=== PATIENT | male | born 1940 | race Caucasian/White ===

== ENCOUNTER → 2016-05-05 | Outpatient (CLI) | payer OTHER, BC ==
[~2016-05-05] VITALS: Ht 25.4 cm; Wt 94.3 kg
[~2016-05-05] MED LIST: ASPI81TA28 PO; CPR500 PO; CRAN1CAP13 PO; CRAN1TAB6 PO; ERTA1INJ IV; FURO-85 PO; GEMF600T3 PO; LEVO25TA5 PO; LISI-787 PO; LOSA100T65 PO; LOSA50TA6 PO; METO25TA3 PO; MULT-845 PO; PANT40TA PO; PRD20 PO; PROM12.57 PO; PRT40 PO; SYN50 PO; TRML160 TOP; ZLF/100 PO; ZNTT/150 PO
[2016-05-05 15:42] VITALS: BP 122/69; PULSE 89; Ht 25.4 cm; Wt 94.3 kg
== END | disposition home or self-care (01) ==
LOC: C.NEUR 14:00
PROVIDERS: ATTEND Internal Medicine Pulmonary Disease
DX: G47.33 Obstructive sleep apnea (adult) (pediatric) (principal)

== ENCOUNTER 2016-05-15 15:22 | Inpatient (IN) | payer OTHER, BC ==
[~2016-05-15] VITALS: Ht 177.8 cm; Wt 88.2 kg
[~2016-05-15 15:22] MED LIST changes: -CPR500 PO; -CRAN1TAB6 PO; -ERTA1INJ IV; -FURO-85 PO; -LOSA50TA6 PO; -METO25TA3 PO; -PANT40TA PO; -PRD20 PO; -PROM12.57 PO; -PRT40 PO; -SYN50 PO; -TRML160 TOP
[2016-05-15 16:17] LABS: BASO % 0.4 %; BASO ABS # 0.03 K/uL (0-0.2); COMPLETE YES; EOS % 3.4 %; HEMATOCRIT 34.2 % (42-52); IG% 0.1 %; LYMPH % 15.3 %; LYMPH ABS # 1.23 K/uL (1.2-3.4); MEAN CELL VOLUME 85.9 fL (80-100); MEAN CORPUSCULAR HEMOGLOBIN 29.1 pg (25-34); MEAN CORPUSCULAR HGB CONC 33.9 g/dl (32-36); MEAN PLATELET VOLUME 9.4 fL (7.4-10.4); MONO % 9.3 %; NEUT % 71.5 %; PLATELET COUNT 289 K/uL (130-400); RED BLOOD COUNT 3.98 M/uL (4.7-6.1); WHITE BLOOD COUNT 8.05 K/uL (4.8-10.8)
--- NOTE | 2016-05-15 16:21 | DIAGNOSTIC IMAGING REPORT ---
CHEST ONE VIEW PORTABLE CLINICAL HISTORY: Generalized Weakness dyspnea COMPARISON STUDY: 03/21/2016 FINDINGS: Interval development of pulmonary edema versus respiratory distress. Bilateral parenchymal infiltrates are present seen diffusely throughout both hemithoraces. IMPRESSION: Interval development of pulmonary edema and/or adult respiratory distress Electronically signed by: José Miguel Melendez M.D. 05/15/2016 4:20 PM Dictated Date/Time: 05/15/2016 4:19 PM
--- NOTE | 2016-05-15 16:33 | DIAGNOSTIC IMAGING REPORT ---
HEAD CT NONCONTRAST CT DOSE: 823.94 mGycm HISTORY: Mental status change Generalized Weakness TECHNIQUE: Multiaxial CT images of the head were performed without the use of intravenous contrast. Comparison: 06/02/2014 Findings: The paranasal sinuses and mastoid air cells are clear. The calvarium and skull base are intact. The ventricles and sulci are within normal limits. There is no mass, hematoma, midline shift, or acute infarct. Impression: No acute intracranial abnormality. Electronically signed by: José Miguel Melendez M.D. 05/15/2016 4:31 PM Dictated Date/Time: 05/15/2016 4:28 PM
[2016-05-15 16:37] LABS: CALCIUM 8.7 mg/dl (8.5-10.1); MAGNESIUM 2.2 mg/dl (1.8-2.4); POTASSIUM 3.9 mmol/L (3.5-5.1)
[2016-05-15 16:38] LABS: BUN/CREATININE RATIO 17.6 (10-20); CREATININE 1.2 mg/dl (0.60-1.40)
[2016-05-15 16:55] LABS: PHOSPHORUS 3.5 mg/dl (2.5-4.9)
[2016-05-15 16:56] LABS: THYROID STIMULATING HORMONE 2.49 uIu/ml (0.300-4.500)
[2016-05-15] MEDS ORDERED: ASPIRIN 324 MG CHEW PO STA (17:07)
[2016-05-15 17:09] LABS: CKMB/CK RATIO 4.3 (0-3.0)
[2016-05-15] MEDS ORDERED: SYN50 PO (17:09)
--- NOTE | 2016-05-15 17:19 | EMERGENCY ROOM VISIT NOTE ---
History Report prepared by [place]: Nelsy Price Under the Supervision of: Dr. Leo Lopez M.D. First contact with patient: 15:48 Chief Complaint: TACHYCARDIA Stated Complaint: HEART BEATING FAST, HEADACHE Nursing Triage Summary: patient reports patient has had a headache for 4 days and is not eating History of Present Illness The patient is a 76 year old male who presents to the Emergency Room with complaints of a headache for the past month that has been worsening over the past 4 days. He reports pain that starts in the left side of his head and radiates into the left side of his jaw. He describes his pain as sharp and rates it as a 6/10 in severity. The patient also reports chest pain, chest heaviness, tachycardia, shortness of breath, nausea, and loss of appetite. He typically uses a CPAP machine at night, but was unable to use it last night because he was so short of breath. He has been taking Tylenol for his symptoms and states that it is only minimally helping. The patient denies abdominal pain , bloody stools, leg pain or swelling, fever, and vomiting. He has a history of bowel obstructions, but had a normal bowel movement this morning. He takes aspirin daily but denies any other blood thinners. His reports that he falls often, but his last fall was over 1 month ago. The patient's called his PCP and was advised to bring the patient to the ED for further evaluation. Source of History: patient, spouse/significant other Onset: 4 days ago Position: head Symptom Intensity: 6/10 Quality: sharp Timing: worsening Modifying Factors (Worsening): other (CPAP) Modifying Factors (Relieving): tylenol Associated Symptoms: + SOB, + chest pain, + nausea, No abdominal pain, No hematochezia, No melena, No vomiting Review of Systems See HPI for pertinent positives & negatives. A total of 10 systems reviewed and were otherwise negative. Past Medical & Surgical Medical Problems: (1) Chest pain at rest (2) Heart disease (3) HTN (hypertension) (4) Pneumonia (5) SBO (small bowel obstruction) (6) Seizure-like activity (7) Shortness of breath Family History FH: COPD (chronic obstructive pulmonary disease) Social History Smoking Status: Never Smoker Drug Use: none Marital Status: Housing Status: lives with significant other Occupation Status: retired Current/Historical Medications Scheduled Aspirin (Aspirin Ec), 81 MG PO QPM Cranberry-Vitamin C-Vitamin E (Cranberry Plus Vitamin C), 1 CAP PO QPM Gemfibrozil (Lopid), 600 MG PO QAM Levothyroxine Sodium (Synthroid), 50 MCG PO QAM Losartan Potassium (Cozaar), 100 MG PO DAILY Multiple Vitamins W/ Minerals (Centrum Silver Adult 50+), 1 TAB PO DAILY Ranitidine (Zantac), 150 MG PO BID Sertraline HCl (Sertraline HCl), 200 MG PO QAM Allergies Coded Allergies: No Known Allergies (Unverified , 05/15/16) Physical Exam Vital Signs Date Time Temp Pulse Resp B/P Pulse Ox O2 Delivery O2 Flow Rate FiO2 05/15/16 18:17 96 05/15/16 17:30 95 21 146/88 95 Room Air 05/15/16 15:34 37.0 97 22 142/79 95 Room Air Physical Exam GENERAL: Patient is elderly appearing and in no acute distress, generalized weakness. HEENT: No acute trauma, normocephalic atraumatic, mucous membranes moist, no nasal congestion, no scleral icterus. NECK: No stridor, no adenopathy, no meningismus, trachea is midline. LUNGS: No dyspnea. Clear to auscultation and equal bilaterally. No wheeze, no rhonchi. HEART: Regular rate and rhythm. No murmurs, rubs, gallops appreciated. ABDOMEN: Soft, nontender, bowel sounds positive, no masses appreciated, no peritonitis. BACK: No midline tenderness, no CVA tenderness EXTREMITIES: Normal motion all extremities, no cyanosis, no edema. NEUROLOGIC: Alert and oriented, no acute motor or sensory deficits, no focal weakness, cranial nerves grossly intact. SKIN: No rash, no jaundice, no diaphoresis. Medical Decision & Procedures ER Provider Diagnostic Interpretation: Radiology results and stated below per my review and radiologist interpretation: HEAD CT NONCONTRAST CT DOSE: 823.94 mGycm HISTORY: Mental status change Generalized Weakness TECHNIQUE: Multiaxial CT images of the head were performed without the use of intravenous contrast. Comparison: 06/02/2014 Findings: The paranasal sinuses and mastoid air cells are clear. The calvarium and skull base are intact. The ventricles and sulci are within normal limits. There is no mass, hematoma, midline shift, or acute infarct. Impression: No acute intracranial abnormality. Electronically signed by: José Miguel Melendez M.D. 05/15/2016 4:31 PM Dictated Date/Time: 05/15/2016 4:28 PM CHEST ONE VIEW PORTABLE CLINICAL HISTORY: Generalized Weakness dyspnea COMPARISON STUDY: 03/21/2016 FINDINGS: Interval development of pulmonary edema versus respiratory distress. Bilateral parenchymal infiltrates are present seen diffusely throughout both hemithoraces. IMPRESSION: Interval development of pulmonary edema and/or adult respiratory distress Electronically signed by: José Miguel Melendez M.D. 05/15/2016 4:20 PM Dictated Date/Time: 05/15/2016 4:19 PM Laboratory Results 05/15/16 15:51 Red Blood Count 3.98, Mean Corpuscular Volume 85.9, Mean Corpuscular Hemoglobin 29.1, Mean Corpuscular Hemoglobin Concent 33.9, Mean Platelet Volume 9.4, Neutrophils (%) (Auto) 71.5, Lymphocytes (%) (Auto) 15.3, Monocytes (%) (Auto) 9.3, Eosinophils (%) (Auto) 3.4, Basophils (%) (Auto) 0.4, Neutrophils # (Auto) 5.76, Lymphocytes # (Auto) 1.23, Monocytes # (Auto) 0.75, Eosinophils # (Auto) 0.27, Basophils # (Auto) 0.03 05/15/16 15:51 Test 05/15/16 15:51 05/15/16 17:45 White Blood Count 8.05 K/uL (4.8-10.8) Red Blood Count 3.98 M/uL (4.7-6.1) Hemoglobin 11.6 g/dL (14.0-18.0) Hematocrit 34.2 % (42-52) Mean Corpuscular Volume 85.9 fL (80-100) Mean Corpuscular Hemoglobin 29.1 pg (25-34) Mean Corpuscular Hemoglobin Concent 33.9 g/dl (32-36) Platelet Count 289 K/uL (130-400) Mean Platelet Volume 9.4 fL (7.4-10.4) Neutrophils (%) (Auto) 71.5 % Lymphocytes (%) (Auto) 15.3 % Monocytes (%) (Auto) 9.3 % Eosinophils (%) (Auto) 3.4 % Basophils (%) (Auto) 0.4 % Neutrophils # (Auto) 5.76 K/uL (1.4-6.5) Lymphocytes # (Auto) 1.23 K/uL (1.2-3.4) Monocytes # (Auto) 0.75 K/uL (0.11-0.59) Eosinophils # (Auto) 0.27 K/uL (0-0.5) Basophils # (Auto) 0.03 K/uL (0-0.2) RDW Standard Deviation 49.1 fL (36.4-46.3) RDW Coefficient of Variation 15.5 % (11.5-14.5) Immature Granulocyte % (Auto) 0.1 % Immature Granulocyte # (Auto) 0.01 K/uL (0.00-0.02) Erythrocyte Sedimentation Rate 61 mm/hr (0-14) Anion Gap 13.0 mmol/L (3-11) Est Creatinine Clear Calc Drug Dose 59.1 ml/min Estimated GFR () 67.2 Estimated GFR (Non- 58.0 BUN/Creatinine Ratio 17.6 (10-20) Calcium Level 8.7 mg/dl (8.5-10.1) Phosphorus Level 3.5 mg/dl (2.5-4.9) Magnesium Level 2.2 mg/dl (1.8-2.4) Total Bilirubin 0.5 mg/dl (0.2-1) Direct Bilirubin 0.2 mg/dl (0-0.2) Aspartate Amino Transf (AST/SGOT) 21 U/L (15-37) Alanine Aminotransferase (ALT/SGPT) 17 U/L (12-78) Alkaline Phosphatase 76 U/L (45-117) Total Creatine Kinase 30 U/L (39-308) Creatine Kinase MB 1.3 ng/ml (0.5-3.6) Creatine Kinase MB Ratio 4.3 (0-3.0) Troponin I 0.052 ng/ml (0-0.045) C-Reactive Protein 12.00 mg/dl (0-0.29) Pro-B-Type Natriuretic Peptide 2781 pg/ml (0-1800) Total Protein 7.1 gm/dl (6.4-8.2) Albumin 3.2 gm/dl (3.4-5.0) Thyroid Stimulating Hormone (TSH) 2.490 uIu/ml (0.300-4.500) Urine Color YELLOW Urine Appearance CLEAR (CLEAR) Urine pH 5.5 (4.5-7.5) Urine Specific [place] 1.022 (1.000-1.030) Urine Protein NEG (NEG) Urine Glucose (UA) NEG (NEG) Urine Ketones NEG (NEG) Urine Occult Blood NEG (NEG) Urine Nitrite NEG (NEG) Urine Bilirubin NEG (NEG) Urine Urobilinogen NEG (NEG) Urine Leukocyte Esterase TRACE (NEG) Urine WBC (Auto) 1-5 /hpf (0-5) Urine RBC (Auto) 0-4 /hpf (0-4) Urine Hyaline Casts (Auto) 1-5 /lpf (0-5) Urine Epithelial Cells (Auto) 10-20 /lpf (0-5) Urine Bacteria (Auto) NEG (NEG) Laboratory results as reviewed by me. Medications Administered Medications (Trade) Dose Ordered Sig/Raudel Route Start Time Stop Time Status Last Admin Dose Admin Aspirin (Aspirin Chew) 324 mg NOW STAT PO 05/15/16 17:07 05/15/16 17:08 DC 05/15/16 17:49 324 MG Prednisone (PredniSONE TAB) 40 mg 1908 ONCE PO 05/15/16 19:08 05/15/16 20:11 DC 05/15/16 23:26 40 MG ECG Indication: SOB/dyspnea Rate (beats per minute): 100 Rhythm: normal sinus Findings: T-wave inversion (Anterior), no acute ischemic change, other (no STEMI) ED Course 1548: The patient was evaluated in room A2. A complete history and physical exam was performed. 1655: I spoke with Dr. Spencer. We discussed the patients results and treatment plan. The patient will be evaluated by the [facility] for further management. 1657: I reassessed the patient at this time. He was feeling short of breath lying flat, so I sat him up and he is feeling better. I discussed the results and treatment plan with the patient. I answered all pertaining questions that he had. He expressed understanding and verbalized agreement. 1707: Aspirin 324 mg PO Medical Decision Differential: Sepsis, Infectious (UTI/Pneumonia/Meningitis/etc), Metabolic/ Electrolyte Abnormality, Cardiac, Hepatic, Endocrine, Toxicologic, Neurologic, amongst other pathologies entertained. 76 yr old male arrives for evaluation of worsening left temporal headache over the last 4 days, though ongoing for over a month. Notes substernal chest pressure last evening along with increased SHOB, especially with exertion and laying flat. CXR with evidence of pulm edema. No stemi on EKG though there are T wave inversions (no current chest pain). Trop mildly bumped though appears similar to previous visit 2 months ago. Given ASA for chest pain reported last evening. He furthermore has left temporal headache which has been increasing last few days. No TTP over left temp. Does have elevated CRP/ ESR which given age, headache, and location of headache may point to this being temporal arteritis. CXR with pulm edema though no clear evidnence of lobar infiltrate. Without wbc elevation, nor fever, will hold on abx at this time, though this could be esr/crp elevation cause as well. He will be brought in to medical team. As not acutely hypoxic while sitting up will defer diuretic choice to hospitalist. Without clear findings of infection will hold off on abx at this time. Consults Time Called: 1650 Consulting Physician: Dr. Spencer Returned Call: [address] Spencer. We discussed the patients results and treatment plan. The patient will be evaluated by the [facility] for further management. Impression Primary Impression: Pulmonary edema Additional Impressions: Substernal chest pain Elevated troponin Temporal headache Scribe Attestation The scribe's documentation has been prepared under my direction and personally reviewed by me in its entirety. I confirm that the note above accurately reflects all work, treatment, procedures, and medical decision making performed by me. Departure Information Dispostion Being Evaluated By Hospitalist Referrals Miley Potts M.D. (PCP) Patient Instructions My [facility] Problem Qualifiers Primary Impression: Pulmonary edema Chronicity: acute Qualified Codes: J81.0 - Acute pulmonary edema
[2016-05-15 18:01] LABS: URINE APPEARANCE CLEAR (CLEAR); URINE BILIRUBIN NEG (NEG); URINE COLOR YELLOW; URINE NITRITE NEG (NEG); URINE PH 5.5 (4.5-7.5); URINE SPECIFIC GRAVITY 1.022 (1.000-1.030); UROBILINOGEN NEG (NEG); ZZUR CULT IF INDIC CLEAN CATCH NO
--- NOTE | 2016-05-15 18:11 | History and Physical ---
History & Physical Date & Time of Service: May 15, 2016 at 18:09 Chief Complaint: Heart Beating Fast, Headache Primary Care Physician: Miley Potts M.D. History of Present Illness 76M with a PMHx of Alzheimer's, Seizure disorder (petit mal), h/o TIA presents with a 4 days history of SOB, sharp chest pain and left sided headache. Patient is present with his who is the chief historian. SOB & Chest Pain - Pt has been getting episodes of SOB x 4 days intermittently. Wasn't able to wear his CPAP machine because of his SOB. Also feels he has palpitations and chest pain. His episodes usually occur with the sharp chest pain. Pt and cannot think of any triggers - the episodes usually occur at rest. Pt does get SOB when he is doing activities. The chest pain is described as sharp and is made worse on inhalation. Pt denies a feeling of an elephant on his chest. Pt was seen in late February 2016 for LLL pneumonia and discharged in March while the states has completely resolved. Left Sided Headache - Worse in the past 4 days. Starts on the left parietal area and radiates towards the left side of his jaw. The pain is mostly on the left side but recently he has started having similar pain on the right side of his head - the pain starts in the right temporal area and radiates to the right side of the jaw. pt denies having any blurry vision. While examined pt states that his headache went away after receiving 325mg Aspirin. ROS: Denies fevers, denies any significant cardiac history, denies tick bites, frequent falls. PMHx: Pneumonia approx two months ago, Allergies: NKDA Meds: see below + Tylenol for headache which didn't help. SHx: Never smoker, lives in [place] with . PCP: Dr. Miley Chu. Past Medical/Surgical History Medical Problems: (1) Heart disease Status: Chronic (2) HTN (hypertension) Status: Chronic (3) SBO (small bowel obstruction) Status: Resolved Family History FH: COPD (chronic obstructive pulmonary disease) Social History Smoking Status: Never Smoker Drug Use: none Marital Status: Housing status: lives with family Occupational Status: retired Multi-Drug Resistant Organisms History of MDRO: No Allergies Coded Allergies: No Known Allergies (Unverified , 05/15/16) Home Medications Scheduled Aspirin (Aspirin Ec), 81 MG PO QPM Cranberry-Vitamin C-Vitamin E (Cranberry Plus Vitamin C), 1 CAP PO QPM Gemfibrozil (Lopid), 600 MG PO QAM Levothyroxine Sodium (Synthroid), 50 MCG PO QAM Losartan Potassium (Cozaar), 100 MG PO DAILY Multiple Vitamins W/ Minerals (Centrum Silver Adult 50+), 1 TAB PO DAILY Ranitidine (Zantac), 150 MG PO BID Sertraline HCl (Sertraline HCl), 200 MG PO QAM Review of Systems Constitutional: No chills, No fever, No weight loss Eyes: + problem reported ( reports that x 3 days the patients left eye doesn't track properly) Respiratory: + shortness of breath, No cough, No sputum Physical Exam Vital Signs Date Time Temp Pulse Resp B/P Pulse Ox O2 Delivery O2 Flow Rate FiO2 05/15/16 17:30 95 21 146/88 95 Room Air 05/15/16 15:34 37.0 97 22 142/79 95 Room Air General Appearance: WD/WN, no apparent distress, + obese Head: + pertinent finding (tenderness over the left temporal artery) Eyes: PERRL, EOMI Respiratory/Chest: chest non-tender, no respiratory distress, no accessory muscle use, + pertinent finding (Crackles in the lower lobes of the lungs bilaterally. ) Cardiovascular: regular rate, rhythm, no edema, no gallop, no JVD, no murmur, normal peripheral pulses Abdomen/GI: normal bowel sounds, non tender, soft, no organomegaly, no pulsatile mass Extremities/Musculoskelatal: normal inspection, no calf tenderness, normal capillary refill, + pertinent finding (No signs of fluid overload in the LE, no edema, well healing lesions on the anterior toes bilaterally. ) Neurologic/Psych: alert, normal mood/affect, normal reflexes, + pertinent finding (Patient cannot remmeber the name of the hospital, but does remember his birthday, address, current president and names of his children. ) Skin: + pertinent finding Diagnostics Laboratory Results Results Past 24 Hours Test 05/15/16 15:51 05/15/16 17:45 Range/Units White Blood Count 8.05 4.8-10.8 K/uL Red Blood Count 3.98 4.7-6.1 M/uL Hemoglobin 11.6 14.0-18.0 g/dL Hematocrit 34.2 42-52 % Mean Corpuscular Volume 85.9 80-100 fL Mean Corpuscular Hemoglobin 29.1 25-34 pg Mean Corpuscular Hemoglobin Concent 33.9 32-36 g/dl Platelet Count 289 130-400 K/uL Mean Platelet Volume 9.4 7.4-10.4 fL Neutrophils (%) (Auto) 71.5 % Lymphocytes (%) (Auto) 15.3 % Monocytes (%) (Auto) 9.3 % Eosinophils (%) (Auto) 3.4 % Basophils (%) (Auto) 0.4 % Neutrophils # (Auto) 5.76 1.4-6.5 K/uL Lymphocytes # (Auto) 1.23 1.2-3.4 K/uL Monocytes # (Auto) 0.75 0.11-0.59 K/uL Eosinophils # (Auto) 0.27 0-0.5 K/uL Basophils # (Auto) 0.03 0-0.2 K/uL RDW Standard Deviation 49.1 36.4-46.3 fL RDW Coefficient of Variation 15.5 11.5-14.5 % Immature Granulocyte % (Auto) 0.1 % Immature Granulocyte # (Auto) 0.01 0.00-0.02 K/uL Erythrocyte Sedimentation Rate 61 0-14 mm/hr Sodium Level 142 136-145 mmol/L Potassium Level 3.9 3.5-5.1 mmol/L Chloride Level 108 98-107 mmol/L Carbon Dioxide Level 21 21-32 mmol/L Anion Gap 13.0 3-11 mmol/L Blood Urea Nitrogen 21 7-18 mg/dl Creatinine 1.20 0.60-1.40 mg/dl Est Creatinine Clear Calc Drug Dose 59.1 ml/min Estimated GFR () 67.2 Estimated GFR (Non- 58.0 BUN/Creatinine Ratio 17.6 10-20 Random Glucose 130 70-99 mg/dl Calcium Level 8.7 8.5-10.1 mg/dl Phosphorus Level 3.5 2.5-4.9 mg/dl Magnesium Level 2.2 1.8-2.4 mg/dl Total Bilirubin 0.5 0.2-1 mg/dl Direct Bilirubin 0.2 0-0.2 mg/dl Aspartate Amino Transf (AST/SGOT) 21 15-37 U/L Alanine Aminotransferase (ALT/SGPT) 17 12-78 U/L Alkaline Phosphatase 76 45-117 U/L Total Creatine Kinase 30 39-308 U/L Creatine Kinase MB 1.3 0.5-3.6 ng/ml Creatine Kinase MB Ratio 4.3 0-3.0 Troponin I 0.052 0-0.045 ng/ml C-Reactive Protein 12.00 0-0.29 mg/dl Pro-B-Type Natriuretic Peptide 2781 0-1800 pg/ml Total Protein 7.1 6.4-8.2 gm/dl Albumin 3.2 3.4-5.0 gm/dl Thyroid Stimulating Hormone (TSH) 2.490 0.300-4.500 uIu/ml Diagnostic Radiology CHEST ONE VIEW PORTABLE CLINICAL HISTORY: Generalized Weakness dyspnea COMPARISON STUDY: 03/21/2016 FINDINGS: Interval development of pulmonary edema versus respiratory distress. Bilateral parenchymal infiltrates are present seen diffusely throughout both hemithoraces. IMPRESSION: Interval development of pulmonary edema and/or adult respiratory distress HEAD CT NONCONTRAST CT DOSE: 823.94 mGycm HISTORY: Mental status change Generalized Weakness TECHNIQUE: Multiaxial CT images of the head were performed without the use of intravenous contrast. Comparison: 06/02/2014 Findings: The paranasal sinuses and mastoid air cells are clear. The calvarium and skull base are intact. The ventricles and sulci are within normal limits. There is no mass, hematoma, midline shift, or acute infarct. Impression: No acute intracranial abnormality. EKG Sinus rhythm with occasional Premature ventricular complexes Anterior infarct (cited on or before 21-SEP-1997) Abnormal ECG When compared with ECG of 21-MAR-2016 00:50, Premature ventricular complexes are now Present Nonspecific T wave abnormality now evident in Inferior leads Nonspecific T wave abnormality, worse in Lateral leads Impression Assessment and Plan 76M with a PMHx of Alzheimer's Disease, Seizures, h/o TIA and HTN presents with a 4 days history of SOB, pleuritic chest pain and Left Sided Headache. X-ray was indicative of pleural effusions. EKG showed sinus rhythm with possible prior infarct. Troponins were slightly elevated. SOB with pleural effusions and pleuritic chest pain. Patient denies any cardiac history but EKG showed possible previous infarct. Trop x 1 was 0.05, will trend. Patient is stable and denies any symptoms are present. X-ray showed pleural effusions, pt has many risk factors for CAD. - f/u Echocardiogram - Follow Troponins, CK, CKMB. - c/w Aspirin 81mg daily. Left Sided Headache r/o Temporal Arteritis Elevated ESR, tender temporal artery. Consult placed to Gen Surgery for Temporal Artery Biopsy placed. start Prednisone 40mg daily. Nose Bleed x 6 days Unknown cause, may be related to arteritis, platelets normal. Will order PT and PTT. HTN - 140/80s - c/w MINH inhibitor. - Continue to monitor Seizures - Gets partial seizures when overstimulated, was on Lamictal, it was DC'd because it didn't work, not on maintenance medications. - Consider Trial of Ethosuximide on discharge. GERD - switch from Ranitidine home med to Pantoprazole 40mg dialy. Hypothyroid - c/w Levothyroxine PO dialy. Mood - c/w Sertraline PO daily DVT Proph Lovenox 40meq SQ Dispo: Tele, Heart Healthy Diet, FULL CODE. Resident Physician Supervision Note: I interviewed and examined the patient. Discussed with Dr. Phillip and agree with findings and plan as documented in the note. Any exceptions or clarifications are listed here: None Documented By: Lamberto Spencer SOB - notes that since pneumonia then flu he's just not really been back to baseline. headache - L sided, throbbing. notes he's sometimes having trouble tracking w L eye vitals noted, basilar rales, tenderness L temporal area, also very tender L suboccipitals but this causes a separate pain from what he's feeling in temporal area CXR noted, labs reviewed a/p acute on chronic CHF - appearing mixed based on last echo - although this was from 2004 - had EF 35%, but LVH as well. 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 probably physiologic stress from respiratory illnesses (+/- dietary indiscretions) led to current CHF picture. diurese as above, repeat echo elevated troponin -almost certainly demand ischemia from above - no anginal type sx. trend enzymes, await echo, follow clinically L sided headache -ESR not markedly elevated, but also not normal. suboccipitals tender, but pressure there does not alter his headache on temporal area. combined with visual disturbances on L eye as well - obligated to eval as temporal arteritis - start prednisone, get temporal artery bx. doubt this ties together with pulmonary edema but if edema doesn't improve w lasix, echo shows surprising results, or anything else new occurs (such as with his nosebleeds) then may need to consider rheumatology eval for ?vasculitic process - although this seems doubtful. d/w pt and directly - they agree w above approach and were appreciative of "not throwing the kitchen sink at him" when he appears stable and approach can be stepwise instead. otherwise as above Resident Involvement: Resident Care Provided Care Provided: Adult Hospital Medicine
[2016-05-15 18:12] LABS: MANUAL MICROSCOPIC REQUIRED? NO; REVIEW REQ? NO
[2016-05-15] MEDS ORDERED: ONDANSETRON INJ 2 MG/ML 2 ML VIAL IV PRN (19:15)
[2016-05-15] MEDS ORDERED: POLYETHYLENE (MIRALAX) 17 GM PACK PO PRN (19:15)
[2016-05-15] MEDS ORDERED: NITROGLYCERIN 0.4 MG SL PER TAB CHARGE SL PRN (19:15)
[2016-05-15] MEDS ORDERED: MAGNESIUM HYDROXIDE SUSP 30 ML UDC PO PRN (19:15)
[2016-05-15] MEDS ORDERED: ACETAMINOPHEN 325 MG TAB PO PRN (19:15)
[2016-05-15 22:18] VITALS: BP 148/93; PULSE 93; O2SAT 92
[2016-05-15] MEDS ORDERED: FUROSEMIDE INJ 40 MG in SYRINGE 0 ML IV ONE (23:00)
[2016-05-15 23:04] VITALS: BP 148/93; PULSE 93; TEMP 37; Ht 177.8 cm; Wt 88.2 kg
[2016-05-15] MEDS ORDERED: NITROGLYCERIN OINT 2% 1GM PACKET ONE (23:21)
[2016-05-15] MEDS: NITROGLYCERIN OINT 2% 1GM PACKET EXT SCH (23:26)
[2016-05-16] VITALS (7 sets, daily range): BP systolic 122–154; BP diastolic 67–90; PULSE 93–103; TEMP 36.7–37.1; O2SAT 91–96
[2016-05-16] MEDS: NITROGLYCERIN OINT 2% 1GM PACKET EXT SCH ×4 (03:45→20:28)
[2016-05-16 06:25] LABS: HEMATOCRIT 37.5 % (42-52); MEAN CORPUSCULAR HEMOGLOBIN 29.7 pg (25-34); MEAN CORPUSCULAR HGB CONC 34.1 g/dl (32-36); MEAN PLATELET VOLUME 9.6 fL (7.4-10.4); PLATELET COUNT 301 K/uL (130-400); RED BLOOD COUNT 4.31 M/uL (4.7-6.1)
[2016-05-16 06:35] LABS: INR 1.1 (0.9-1.1); PARTIAL THROMBOPLASTIN RATIO 1.2
[2016-05-16 06:50] LABS: BUN/CREATININE RATIO 19.2 (10-20); CALCIUM 9.3 mg/dl (8.5-10.1); CREATININE 1.2 mg/dl (0.60-1.40); POTASSIUM 4.2 mmol/L (3.5-5.1)
--- NOTE | 2016-05-16 06:50 | Surgery Progress Note ---
Surgery Progress Note Date of Service May 16, 2016. Objective Vital Signs: Date Time Temp Pulse Resp B/P Pulse Ox O2 Delivery O2 Flow Rate FiO2 05/16/16 05:09 99 05/16/16 04:57 36.8 100 22 154/90 92 Room Air 05/16/16 04:30 Room Air 05/16/16 02:02 104 05/15/16 23:04 37.0 93 19 148/93 Room Air 05/15/16 22:18 93 05/15/16 22:18 93 148/93 92 Room Air 05/15/16 20:56 95 148/93 95 05/15/16 19:23 100 19 149/92 96 Room Air 05/15/16 18:17 96 05/15/16 17:30 95 21 146/88 95 Room Air 05/15/16 15:34 37.0 97 22 142/79 95 Room Air Laboratory Results: Results Past 24 Hours Test 05/15/16 15:51 05/15/16 17:45 05/16/16 01:28 05/16/16 06:20 Range/Units White Blood Count 8.05 7.40 4.8-10.8 K/uL Red Blood Count 3.98 4.31 4.7-6.1 M/uL Hemoglobin 11.6 12.8 14.0-18.0 g/dL Hematocrit 34.2 37.5 42-52 % Mean Corpuscular Volume 85.9 87.0 80-100 fL Mean Corpuscular Hemoglobin 29.1 29.7 25-34 pg Mean Corpuscular Hemoglobin Concent 33.9 34.1 32-36 g/dl Platelet Count 289 301 130-400 K/uL Mean Platelet Volume 9.4 9.6 7.4-10.4 fL Neutrophils (%) (Auto) 71.5 % Lymphocytes (%) (Auto) 15.3 % Monocytes (%) (Auto) 9.3 % Eosinophils (%) (Auto) 3.4 % Basophils (%) (Auto) 0.4 % Neutrophils # (Auto) 5.76 1.4-6.5 K/uL Lymphocytes # (Auto) 1.23 1.2-3.4 K/uL Monocytes # (Auto) 0.75 0.11-0.59 K/uL Eosinophils # (Auto) 0.27 0-0.5 K/uL Basophils # (Auto) 0.03 0-0.2 K/uL RDW Standard Deviation 49.1 49.2 36.4-46.3 fL RDW Coefficient of Variation 15.5 15.3 11.5-14.5 % Immature Granulocyte % (Auto) 0.1 % Immature Granulocyte # (Auto) 0.01 0.00-0.02 K/uL Erythrocyte Sedimentation Rate 61 0-14 mm/hr Sodium Level 142 136-145 mmol/L Potassium Level 3.9 3.5-5.1 mmol/L Chloride Level 108 98-107 mmol/L Carbon Dioxide Level 21 21-32 mmol/L Anion Gap 13.0 3-11 mmol/L Blood Urea Nitrogen 21 7-18 mg/dl Creatinine 1.20 0.60-1.40 mg/dl Est Creatinine Clear Calc Drug Dose 59.1 ml/min Estimated GFR () 67.2 Estimated GFR (Non- 58.0 BUN/Creatinine Ratio 17.6 10-20 Random Glucose 130 70-99 mg/dl Calcium Level 8.7 8.5-10.1 mg/dl Phosphorus Level 3.5 2.5-4.9 mg/dl Magnesium Level 2.2 1.8-2.4 mg/dl Total Bilirubin 0.5 0.2-1 mg/dl Direct Bilirubin 0.2 0-0.2 mg/dl Aspartate Amino Transf (AST/SGOT) 21 15-37 U/L Alanine Aminotransferase (ALT/SGPT) 17 12-78 U/L Alkaline Phosphatase 76 45-117 U/L Total Creatine Kinase 30 28 39-308 U/L Creatine Kinase MB 1.3 1.4 0.5-3.6 ng/ml Creatine Kinase MB Ratio 4.3 5.0 0-3.0 Troponin I 0.052 0.056 0-0.045 ng/ml C-Reactive Protein 12.00 0-0.29 mg/dl Pro-B-Type Natriuretic Peptide 2781 0-1800 pg/ml Total Protein 7.1 6.4-8.2 gm/dl Albumin 3.2 3.4-5.0 gm/dl Thyroid Stimulating Hormone (TSH) 2.490 0.300-4.500 uIu/ml Urine Color YELLOW Urine Appearance CLEAR CLEAR Urine pH 5.5 4.5-7.5 Urine Specific [place] 1.022 1.000-1.030 Urine Protein NEG NEG Urine Glucose (UA) NEG NEG Urine Ketones NEG NEG Urine Occult Blood NEG NEG Urine Nitrite NEG NEG Urine Bilirubin NEG NEG Urine Urobilinogen NEG NEG Urine Leukocyte Esterase TRACE NEG Urine WBC (Auto) 1-5 0-5 /hpf Urine RBC (Auto) 0-4 0-4 /hpf Urine Hyaline Casts (Auto) 1-5 0-5 /lpf Urine Epithelial Cells (Auto) 10-20 0-5 /lpf Urine Bacteria (Auto) NEG NEG Prothrombin Time 12.0 9.0-12.0 SECONDS Prothromb Time International Ratio 1.1 0.9-1.1 Activated Partial Thromboplast Time 32.2 21.0-31.0 SECONDS Partial Thromboplastin Ratio 1.2 Assessment & Plan 05/16/16- tentatively scheduled for Lt temp art bx for Wed ( tomorrow) will discuss later with pt and
[2016-05-16] MEDS ORDERED: ASPIRIN 81 MG ECTAB PO SCH (09:00)
[2016-05-16] MEDS: SERTRALINE HCL 100 MG TAB PO SCH (09:01)
[2016-05-16] MEDS: ENOXAPARIN 40 MG/0.4 ML SYR SC SCH (09:01)
[2016-05-16] MEDS: LOSARTAN POTASSIUM 50 MG TAB PO SCH (09:01)
[2016-05-16] MEDS: LEVOTHYROXINE 50 MCG TAB PO SCH (09:01)
[2016-05-16] MEDS: ASPIRIN 81 MG ECTAB PO SCH (09:02)
[2016-05-16] MEDS: PANTOprazole SOD 40 MG TAB PO SCH (09:02)
[2016-05-16 10:22] LABS: CKMB/CK RATIO 5.2 (0-3.0)
--- NOTE | 2016-05-16 12:28 | Clinical Documentation Query ---
QUERY 1 OF [address] COPELAND, ECHO is currently pending. In your clinical opinion is this patient being managed for: ( x ) Acute on chronic combined systolic and diastolic CHF ( ) Acute on chronic combined systolic CHF ( ) Acute on chronic combined diastolic CHF ( ) Other explanation of clinical findings (Please Explain) ( ) Unable to determine (Please Define) ( ) Need to Discuss ( ) Not Agree The medical record reflects the following clinical findings, treatment, and risk factors. Clinical Indicators:76 yo male presenting with headache. CXR showed Interval development of pulmonary edema and/or adult respiratory distress. Lungs with bilateral basilar crackles, BNP 2781. H/P indicates acute on chronic CHF --appearing mixed. Treatment: tele, IV lasix, pending ECHO, serial trops, I/O, daily wts Risk Factors: age, heart disease, HTN QUERY 2 OF 2 In your clinical opinion is this patient being managed for: ( x ) Chronic kidney disease, stage 3 ( ) Other explanation of clinical findings (Please Explain) ( ) Unable to determine (Please Define) ( ) Need to Discuss ( ) Not Agree The medical record reflects the following clinical findings, treatment, and risk factors. Clinical Indicators: Review of historical GFR revealed range of 45.3-58.4 Treatment: monitor PRP's Risk Factors: age, HTN, heart disease Please clarify and document your clinical opinion in the progress notes and discharge summary. Terms such as "probable", "suspected", "likely", "questionable", "possible", or "still to be ruled out" are acceptable. IF IN AGREEMENT, YOU MUST DOCUMENT ABOVE DIAGNOSTIC STATEMENT IN DAILY PROGRESS NOTES AND DISCHARGE SUMMARY. This document is not part of the patient's record. Thank You, Carol Radford, RN [phone]
--- NOTE | 2016-05-16 14:35 | Progress Note ---
Subjective Date of Service: May 16, 2016. Subjective Pt evaluation today including: conversation w/ patient, conversation w/ family , physical exam, chart review, lab review, review of studies, conversation w/ service delivery consultant, review of inpatient medication list Voiding: no voiding problems Reported no more chest pain, breathing okay, no more headache Problem List Medical Problems: (1) Abdominal pain Status: Acute (2) Anemia Status: Acute (3) Elevated troponin Status: Acute (4) Fever Status: Acute (5) Pulmonary edema Status: Acute (6) Seizure Status: Acute (7) Sepsis Status: Acute (8) Substernal chest pain Status: Acute (9) Temporal headache Status: Acute Review of Systems Constitutional: + fatigue, + weakness, No chills, No fever, No problem reported , No sweats, No weight loss Eyes: No diplopia, No discharge, No eye pain, No redness, No worsening of vision ENT: No dental problems, No hearing loss, No nasal symptoms, No sore throat, No tinnitus, No trouble swallowing, No unusual epistaxis Respiratory: No cough, No dyspnea at rest, No dyspnea on exertion, No hemoptysis, No shortness of breath, No sputum, No wheezing Cardiac: No PND, No chest pain, No claudication, No edema, No orthopnea, No palpitations Abdomen: No constipation, No diarrhea, No nausea, No pain, No vomiting Musculoskeletal: No calf pain, No joint pain, No muscle pain, No swelling Male : No dysuria, No hematuria, No incontinence, No nocturia more than once/ night, No slowing stream, No urinary frequency Neurologic: + memory loss, No balance problems, No numbness/tingling, No paralysis, No vertigo, No weakness Psychiatric: No anhedonism, No anxiety, No depression symptoms, No insomnia, No substance abuse Heme: No abnormal bleeding/bruising, No clotting problems, No night sweats, No swollen lymph nodes Endo: No excessive thirst, No excessive urination, No fatigue Skin: No bleeding, No color change, No itch, No new/changing skin lesions, No rash Objective Vital Signs Date Time Temp Pulse Resp B/P Pulse Ox O2 Delivery O2 Flow Rate FiO2 05/16/16 13:15 36.9 96 19 127/78 93 Room Air 05/16/16 12:25 Room Air 05/16/16 11:44 36.7 103 18 122/84 91 Room Air 05/16/16 08:30 Room Air 05/16/16 08:28 36.7 94 18 152/90 95 Room Air 05/16/16 07:37 102 05/16/16 05:09 99 05/16/16 04:57 36.8 100 22 154/90 92 Room Air 05/16/16 04:30 Room Air 05/16/16 02:02 104 05/15/16 23:04 37.0 93 19 148/93 Room Air 05/15/16 22:18 93 05/15/16 22:18 93 148/93 92 Room Air 05/15/16 20:56 95 148/93 95 05/15/16 19:23 100 19 149/92 96 Room Air 05/15/16 18:17 96 05/15/16 17:30 95 21 146/88 95 Room Air 05/15/16 15:34 37.0 97 22 142/79 95 Room Air Physical Exam General Appearance: WD/WN, no apparent distress, + obese, + pertinent finding ( confuse pleasant) Eyes: normal inspection, PERRL, EOMI, sclerae normal, + pertinent finding ( bilateral eye movement normally, left caodaism area has no obvious tender, temporal artery area has no pain) ENT: normal ENT inspection, hearing grossly normal, pharynx normal Neck: supple, no adenopathy, thyroid normal, no JVD, no carotid bruits, trachea midline Respiratory/Chest: chest non-tender, normal breath sounds, no respiratory distress, no accessory muscle use, + decreased breath sounds, + wheezing ( occasional) Cardiovascular: regular rate, rhythm, no gallop, no JVD, no murmur, + pertinent finding (1+ edema) Abdomen: normal bowel sounds, non tender, soft, no organomegaly, no pulsatile mass Extremities: normal range of motion, non-tender, normal inspection, no pedal edema, no calf tenderness, normal capillary refill, pelvis stable Neurologic/Psychiatric: blood bank specialist II-XII nml as tested, no motor/sensory deficits, alert, normal mood/affect, oriented x 3 Skin: normal color, warm/dry, no rash Lymphatic: no adenopathy Laboratory Results Last 24 Hours Test 05/15/16 15:51 05/15/16 17:45 05/16/16 01:05/16/16 06:20 White Blood Count 8.05 K/uL 7.40 K/uL Red Blood Count 3.98 M/uL 4.31 M/uL Hemoglobin 11.6 g/dL 12.8 g/dL Hematocrit 34.2 % 37.5 % Mean Corpuscular Volume 85.9 fL 87.0 fL Mean Corpuscular Hemoglobin 29.1 pg 29.7 pg Mean Corpuscular Hemoglobin Concent 33.9 g/dl 34.1 g/dl Platelet Count 289 K/uL 301 K/uL Mean Platelet Volume 9.4 fL 9.6 fL Neutrophils (%) (Auto) 71.5 % Lymphocytes (%) (Auto) 15.3 % Monocytes (%) (Auto) 9.3 % Eosinophils (%) (Auto) 3.4 % Basophils (%) (Auto) 0.4 % Neutrophils # (Auto) 5.76 K/uL Lymphocytes # (Auto) 1.23 K/uL Monocytes # (Auto) 0.75 K/uL Eosinophils # (Auto) 0.27 K/uL Basophils # (Auto) 0.03 K/uL RDW Standard Deviation 49.1 fL 49.2 fL RDW Coefficient of Variation 15.5 % 15.3 % Immature Granulocyte % (Auto) 0.1 % Immature Granulocyte # (Auto) 0.01 K/uL Erythrocyte Sedimentation Rate 61 mm/hr Sodium Level 142 mmol/L 140 mmol/L Potassium Level 3.9 mmol/L 4.2 mmol/L Chloride Level 108 mmol/L 106 mmol/L Carbon Dioxide Level 21 mmol/L 22 mmol/L Anion Gap 13.0 mmol/L 12.0 mmol/L Blood Urea Nitrogen 21 mg/dl 23 mg/dl Creatinine 1.20 mg/dl 1.20 mg/dl Est Creatinine Clear Calc Drug Dose 59.1 ml/min 59.1 ml/min Estimated GFR () 67.2 67.2 Estimated GFR (Non- 58.0 58.0 BUN/Creatinine Ratio 17.6 19.2 Random Glucose 130 mg/dl 164 mg/dl Calcium Level 8.7 mg/dl 9.3 mg/dl Phosphorus Level 3.5 mg/dl Magnesium Level 2.2 mg/dl Total Bilirubin 0.5 mg/dl Direct Bilirubin 0.2 mg/dl Aspartate Amino Transf (AST/SGOT) 21 U/L Alanine Aminotransferase (ALT/SGPT) 17 U/L Alkaline Phosphatase 76 U/L Total Creatine Kinase 30 U/L 28 U/L Creatine Kinase MB 1.3 ng/ml 1.4 ng/ml Creatine Kinase MB Ratio 4.3 5.0 Troponin I 0.052 ng/ml 0.056 ng/ml C-Reactive Protein 12.00 mg/dl Pro-B-Type Natriuretic Peptide 2781 pg/ml Total Protein 7.1 gm/dl Albumin 3.2 gm/dl Thyroid Stimulating Hormone (TSH) 2.490 uIu/ml Urine Color YELLOW Urine Appearance CLEAR Urine pH 5.5 [address]rine [address] [place] 1.022 Urine Protein NEG Urine Glucose (UA) NEG Urine Ketones NEG Urine Occult Blood NEG Urine Nitrite NEG Urine Bilirubin NEG Urine Urobilinogen NEG Urine Leukocyte Esterase TRACE Urine WBC (Auto) 1-5 /hpf Urine RBC (Auto) 0-4 /hpf Urine Hyaline Casts (Auto) 1-5 /lpf Urine Epithelial Cells (Auto) 10-20 /lpf Urine Bacteria (Auto) NEG Prothrombin Time 12.0 SECONDS Prothromb Time International Ratio 1.1 Activated Partial Thromboplast Time 32.2 SECONDS Partial Thromboplastin Ratio 1.2 Test 05/16/16 09:40 Total Creatine Kinase 29 U/L Creatine Kinase MB 1.5 ng/ml Creatine Kinase MB Ratio 5.2 Troponin I 0.041 ng/ml Assessment and Plan 76-year-old white male admitted on 05/15/2016 because of chest pain, difficulty breathing and left-sided headache acute on chronic CHF: Stable and improving appearing mixed based on last echo Likely acute on chronic combined systolic and diastolic CHF exacerbation diurese as above, follow-up repeat echo, TSH was normal Chest pain with minimal elevated troponin likely because of demanding ischemia and troponin leakage, Troponin was normalized, patient has no more chest pain,will follow-up L sided headache, was concerned about temporal arteritis because of elevated ESR , suboccipitals tender, headache on temporal area, visual disturbances on L eye as well: Admission physician has start prednisone, surgeon saw patient may planning to get temporal artery bx. In bedside I discussed with patient and patient's who is POA, I discussed ON THIS CONDITIONS, SHE UNDERSTAND AND AGREED Chronic kidney disease, stage 3, Acute on chronic combined systolic and diastolic CHF PT and OT evaluation and treatment, Follow-up with surgeon input to possible temporal artery biopsy I personally feel it would be a good step to move forward because the results of the biopsy will help to decide the length of the oral steroid to treatment Continued [facility] stay due to: multiple IV medications needed Discharge planning: home, uncertain
--- NOTE | 2016-05-16 14:36 | Progress Note ---
Progress Note Patient is 76 year old M scheduled for TA bx to rule out temporal arteritis. The patient was admitted on 05/15 with acute chest pain and dyspnea. He was found to be in acute pulmonary edema with no peripheral edema. Troponins were mildly elevated and BNP was also modestly elevated. ECG showed an old infarct and also some subtle changes likely related to acute CHF. Echo was done and these results are pending. He has a history of chronic CHF with an EF of 35% in 2004, also mild to moderate alzheimers dementia and ABDON on CPAP. He also has a remote history of seizures and is on no medications. Since admission, the patient is being diuresed effectively. His oxygen saturations are in the low 90s on room air. Since admission he says that he is no longer experiencing chest pain but is still dyspneic with even the slightest activity. Lung sounds are decreased at the bases. I spoke with the patient and his regarding the timing of the procedure. The patient's was apprehensive about proceeding at the current juncture prior to our discussion. I discussed that while a diagnosis here would be time sensitive, it is certainly not critical that this be diagnosed immediately. Given that the patient has Alzheimer's and, per the , an occasional combative nature when confused, I do not think he would tolerate light sedation and would require deep sedation or general anesthesia at the discretion of the attending anesthesiologist. Given this fact, I would like to recheck his chest xray in the morning tomorrow to monitor the status of his pulmonary edema. Also , I would like to see the patient improve in his subjective complaints of dyspnea. Finally I would like to see the results of the echocardiogram which were done yesterday. If these factors improve, the patient may be a good candidate for surgery under deep sedation/GA tomorrow. If not, he may need another day or two of continued diuresis prior to the proposed procedure. I have discussed this plan with the patient and his and obtained consent for anesthesia.
--- NOTE | 2016-05-16 18:56 | ECHOCARDIOGRAM REPORT ---
*NOTICE TO RECEIVING [employer] This information is strictly Confidential and protected under [place] law. [place] law prohibits you from making any further disclosure of this information unless further disclosure is expressly permitted by the written consent of the person to whom it pertains or is authorized by law. A general authorization for the release of medical or other information is not sufficient for this purpose. Hospital accepts no responsibility if the information is made available to any other person, INCLUDING THE PATIENT. Interpretation Summary * Name: JOHAN PANTOJA SR Study Date: 05/16/2016 08:27 AM BP: 154/90 mmHg * Patient Location: C.EDINP\S\EDINP 1\S\1 HR: 98 * : 1940 (M/d/yyy) Gender: Male Height: 70 in * Age: 76 yrs Ethnicity: CA Weight: 205 lb * Ordering Physician: José Miguel Phillip * Referring Physician: Self, Referred * Performed By: Miley Jensen RCS * * Reason For Study: CHEST PAIN * BSA: 2.1 m2 * Severe left ventricular systolic dysfunction. * No significant change from an echo performed in 11/28/13. * Mild left ventricular dilatation. * Mild left atrial dilatation. * No significant valvular abnormalities. * Mild concentric left ventricular hypertrophy. * -- Conclusions -- * Aortic valve sclerosis mild, without significant aortic valvular stenosis. Procedure Details * A complete two-dimensional transthoracic echocardiogram was performed (2D, M-mode, Doppler and color flow Doppler). * The study was technically difficult. * A contrast injection of Definity was performed to improve assessment of LV function. * Contrast was injected into an intravenous site in the left arm. * One vial of Definity ultrasound contrast was diluted in normal saline to a total volume of 10 ml. A total of '2' ml of solution was administered during imaging. * Lot # [id number] of Definity utilized for procedure. * Expiration date 1 MAY 13. * The attending nurse who injected the contrast agent was FELIX Escobar ED, RN. Left Ventricle * The left ventricle is mildly dilated. * There is no thrombus. * There is mild concentric left ventricular hypertrophy. * Ejection Fraction = 25-30%. * Left ventricular systolic function is severely reduced. * There is severe global hypokinesis of the left ventricle. Right Ventricle * The right ventricle is normal in size and function. Atria * The left atrium is mildly dilated. * Right atrial size is normal. * No ASD detected; PFO is not assessed. Mitral Valve * The mitral valve is normal. * There is no mitral valve stenosis. * There is trace mitral regurgitation. Tricuspid Valve * The tricuspid valve is not well visualized, but is grossly normal. * There is no tricuspid stenosis. * There is trace tricuspid regurgitation. Aortic Valve * The aortic valve is trileaflet. * The aortic valve opens well. * Aortic valve sclerosis mild, without significant aortic valvular stenosis. * Aortic stenosis is absent. * There is no significant aortic regurgitation. Pulmonic Valve * The pulmonic valve is not well visualized. * There is no significant pulmonary regurgitation. Great Vessels * The aortic root is normal size. Pericardium/Pleural * There is no pericardial effusion. Great Vessels * Normal inferior vena cava diameter and respiratory variation suggests normal central venous pressure. MMode 2D Measurements and Calculations IVSd 1.2 cm IVSs 1.8 cm LVIDd 5.7 cm LVIDs 5.1 cm LVPWd 1.2 cm LVPWs 1.7 cm IVS/LVPW 0.99 FS 10.5 % EDV(Teich) 158.4 ml ESV(Teich) 122.5 ml EF(Teich) 22.7 % EDV(cubed) 182.7 ml ESV(cubed) 130.8 ml EF(cubed) 28.4 % % IVS thick 53.1 % % LVPW thick 42.9 % LV mass(C)d 285.9 grams LV mass(C)dI 135.5 grams/m\S\2 LV mass(C)s 425.0 grams LV mass(C)sI 201.5 grams/m\S\2 SV(Teich) 35.9 ml SI(Teich) 17.0 ml/m\S\2 SV(cubed) 51.9 ml SI(cubed) 24.6 ml/m\S\2 Ao root diam 3.6 cm Ao root area 10.3 cm\S\2 ACS 2.3 cm LA dimension 4.6 cm LA/Ao 1.3 LVOT diam 2.0 cm LVOT area 3.1 cm\S\2 LVAd ap4 38.0 cm\S\2 LVLd ap4 7.6 cm EDV(MOD-sp4) 155.1 ml EDV(sp4-el) 160.8 ml LVAs ap4 31.6 cm\S\2 LVLs ap4 7.4 cm ESV(MOD-sp4) 109.0 ml ESV(sp4-el) 114.1 ml EF(MOD-sp4) 29.7 % EF(sp4-el) 29.0 % LVAd ap2 34.6 cm\S\2 LVLd ap2 8.2 cm EDV(MOD-sp2) 129.1 ml EDV(sp2-el) 123.9 ml LVAs ap2 28.5 cm\S\2 LVLs ap2 7.7 cm ESV(MOD-sp2) 91.5 ml ESV(sp2-el) 89.4 ml EF(MOD-sp2) 29.1 % EF(sp2-el) 27.8 % LVLd %diff 7.2 % EDV(MOD-bp) 139.2 ml LVLs %diff 3.2 % ESV(MOD-bp) 96.6 ml EF(MOD-bp) 30.6 % SV(MOD-sp4) 46.1 ml SI(MOD-sp4) 21.8 ml/m\S\2 SV(MOD-sp2) 37.6 ml SI(MOD-sp2) 17.8 ml/m\S\2 SV(MOD-bp) 42.6 ml SI(MOD-bp) 20.2 ml/m\S\2 SV(sp4-el) 46.7 ml SI(sp4-el) 22.1 ml/m\S\2 SV(sp2-el) 34.5 ml SI(sp2-el) 16.3 ml/m\S\2 Doppler Measurements and Calculations MV E max marvel 96.5 cm/sec MV dec time 0.17 sec Ao V2 max 111.8 cm/sec Ao max PG 5.0 mmHg Ao max PG (full) 2.9 mmHg CLAUDIA(V,A) 2.0 cm\S\2 CLAUDIA(V,D) 2.0 cm\S\2 LV V1 max PG 2.1 mmHg LV V1 max 72.7 cm/sec
[2016-05-17] VITALS (10 sets, daily range): BP systolic 127–151; BP diastolic 67–80; PULSE 79–91; TEMP 36.5–36.9; O2SAT 92–95
[2016-05-17] MEDS: NITROGLYCERIN OINT 2% 1GM PACKET EXT SCH ×4 (03:06→21:32)
[2016-05-17] MEDS: LEVOTHYROXINE 50 MCG TAB PO SCH (06:08)
[2016-05-17 07:22] LABS: HEMATOCRIT 34.7 % (42-52); MEAN CELL VOLUME 84.8 fL (80-100); MEAN CORPUSCULAR HEMOGLOBIN 28.9 pg (25-34); MEAN PLATELET VOLUME 9.8 fL (7.4-10.4); PLATELET COUNT 349 K/uL (130-400); RED BLOOD COUNT 4.09 M/uL (4.7-6.1); WHITE BLOOD COUNT 9.79 K/uL (4.8-10.8)
--- NOTE | 2016-05-17 07:52 | DIAGNOSTIC IMAGING REPORT ---
CHEST ONE VIEW PORTABLE CLINICAL HISTORY: pulmonary edema COMPARISON STUDY: 05/15/2016 FINDINGS: The heart remains enlarged. There is resolving pulmonary edema. There are no significant pleural effusions. There is no lobar consolidation.[ IMPRESSION: Improving pulmonary edema pattern. Electronically signed by: Buddy Rodríguez M.D. 05/17/2016 7:51 AM Dictated Date/Time: 05/17/2016 7:50 AM
[2016-05-17 07:54] LABS: BUN/CREATININE RATIO 31.3 (10-20); CREATININE 1.3 mg/dl (0.60-1.40); MAGNESIUM 2.5 mg/dl (1.8-2.4); POTASSIUM 3.6 mmol/L (3.5-5.1)
[2016-05-17] MEDS: ENOXAPARIN 40 MG/0.4 ML SYR SC SCH (08:07)
[2016-05-17] MEDS: SERTRALINE HCL 100 MG TAB PO SCH (08:08)
[2016-05-17] MEDS: LOSARTAN POTASSIUM 50 MG TAB PO SCH (08:09)
[2016-05-17] MEDS: ASPIRIN 81 MG ECTAB PO SCH (08:10)
[2016-05-17] MEDS: PANTOprazole SOD 40 MG TAB PO SCH (08:11)
[2016-05-17] MEDS ORDERED: PANTOprazole SOD 40 MG TAB PO SCH (09:00)
--- NOTE | 2016-05-17 09:49 | Medical Consult ---
Consultation Date of Consultation: May 17, 2016. Attending Physician: Leo Berman MD, PhD History of Present Illness adm with sob, pulmonary edema and headache which has resolved Past Medical/Surgical History Medical Problems: (1) Abdominal pain Status: Acute (2) Anemia Status: Acute (3) Elevated troponin Status: Acute (4) Fever Status: Acute (5) Pulmonary edema Status: Acute (6) Seizure Status: Acute (7) Sepsis Status: Acute (8) Substernal chest pain Status: Acute (9) Temporal headache Status: Acute Family History FH: COPD (chronic obstructive pulmonary disease) Social History Smoking Status: Never Smoker Drug Use: none Marital Status: Housing Status: lives with significant other Occupation Status: retired Allergies Coded Allergies: No Known Allergies (Unverified , 05/15/16) Current Inpatient Medications Current Inpatient Medications Medications (Trade) Dose Ordered Sig/Raudel Route Start Time Stop Time Status Last Admin Dose Admin Enoxaparin Sodium (Lovenox Inj) 40 mg DAILY SC 05/16/16 09:00 06/15/16 08:59 05/16/16 09:01 40 MG Acetaminophen (Tylenol Tab) 650 mg Q4H PRN PO 05/15/16 19:15 06/14/16 19:14 05/16/16 20:27 650 MG Magnesium Hydroxide (Milk Of Magnesia Susp) 30 ml Q12H PRN PO 05/15/16 19:15 06/14/16 19:14 Ondansetron HCl (Zofran Inj) 4 mg Q6H PRN IV 05/15/16 19:15 06/14/16 19:14 Nitroglycerin (Nitrostat Tab) 0.4 mg UD PRN SL 05/15/16 19:15 06/14/16 19:14 Nitroglycerin (Nitroglycerin 2% Oint) 1 inch Q6H EXT 05/15/16 21:00 06/14/16 20:59 05/17/16 08:10 1 INCH Polyethylene (Miralax Powder Packet) 17 gm DAILY PRN PO 05/15/16 19:15 06/14/16 19:14 Prednisone (PredniSONE TAB) 40 mg DAILY PO 05/16/16 09:00 06/15/16 08:59 05/17/16 08:09 40 MG Aspirin (Ecotrin Tab) 81 mg QAM PO 05/16/16 09:00 06/15/16 08:59 05/17/16 08:10 81 MG Levothyroxine Sodium (Synthroid Tab) 50 mcg DAILYBB PO 05/16/16 07:00 06/15/16 06:59 05/17/16 06:08 50 MCG Losartan Potassium (coZAAR TAB) 100 mg DAILY PO 05/16/16 09:00 06/15/16 08:59 05/17/16 08:09 100 MG Sertraline HCl (Zoloft Tab) 200 mg QAM PO 05/16/16 09:00 06/15/16 08:59 05/17/16 08:08 200 MG Pantoprazole Sodium (Protonix Tab) 40 mg QAM PO 05/16/16 09:00 06/15/16 08:59 05/17/16 08:11 40 MG Review of Systems Constitutional: No chills, No fever Eyes: No eye pain ENT: No hearing loss Respiratory: + shortness of breath, No cough, No sputum Cardiovascular: No chest pain Abdomen: No pain Musculoskeletal: No joint pain Genitourinary - Male: No dysuria Neurologic: + weakness Integumentary: No rash Physical Exam Date Time Temp Pulse Resp B/P Pulse Ox O2 Delivery O2 Flow Rate FiO2 05/17/16 08:06 36.6 89 20 136/79 93 Room Air 05/17/16 08:00 Room Air 05/17/16 04:00 Room Air 05/17/16 03:36 36.6 89 20 137/80 93 Room Air 05/17/16 00:02 Room Air 05/16/16 23:25 36.9 93 20 132/67 93 Room Air 05/16/16 20:04 Room Air 05/16/16 19:29 36.9 96 18 137/87 96 Room Air 05/16/16 16:00 Room Air 05/16/16 15:21 37.1 99 20 147/67 95 Room Air 05/16/16 13:15 36.9 96 19 127/78 93 Room Air 05/16/16 12:25 Room Air 05/16/16 11:44 36.7 103 18 122/84 91 Room Air General Appearance: WD/WN, no apparent distress Head: normocephalic Neck: supple Respiratory/Chest: no respiratory distress Abdomen/GI: soft Neurologic/Psych: alert (very mild confusion) Laboratory Results Last 24 Hours Test 05/17/16 06:40 White Blood Count 9.79 K/uL Red Blood Count 4.09 M/uL Hemoglobin 11.8 g/dL Hematocrit 34.7 % Mean Corpuscular Volume 84.8 fL Mean Corpuscular Hemoglobin 28.9 pg Mean Corpuscular Hemoglobin Concent 34.0 g/dl RDW Standard Deviation 47.1 fL RDW Coefficient of Variation 15.1 % Platelet Count 349 K/uL Mean Platelet Volume 9.8 fL Sodium Level 142 mmol/L Potassium Level 3.6 mmol/L Chloride Level 107 mmol/L Carbon Dioxide Level 22 mmol/L Anion Gap 13.0 mmol/L Blood Urea Nitrogen 41 mg/dl Creatinine 1.30 mg/dl Est Creatinine Clear Calc Drug Dose 54.5 ml/min Estimated GFR () 61.0 Estimated GFR (Non- 52.6 BUN/Creatinine Ratio 31.3 Random Glucose 118 mg/dl Calcium Level 9.0 mg/dl Magnesium Level 2.5 mg/dl Assessment & Plan 05/17/16- asked to see pt re Temporal art bx- pt will likely need gen anesthesia to avoid agitation and his headache is gone- I do not feel that we should put him through this operation- discussed with pt and .
[2016-05-17] MEDS ORDERED: PRD20 PO (12:49)
[2016-05-17] MEDS ORDERED: PRT40 PO (12:49)
--- NOTE | 2016-05-17 12:50 | Discharge Instructions ---
Discharge Instructions Admission Reason for Admission: Chest Pain At Rest, Sob Discharge Discharge Diagnosis / Problem: chest pain, chf exac Discharge Goals Goal(s): Decrease discomfort, Improve function, Increase independence, Improve disease control, Improve nutritional status, Learn about illness, Diagnostic testing, Therapeutic intervention, Prevent Disease Progression, Specific goals Activity Recommendations Activity Limitations: resume your previous activity Exercise/Sports Limitations: none May Resume Sexual Activity: when tolerated Shower/Bathe: no limitations fall precaution . Instructions / Follow-Up Instructions / Follow-Up you have acute on chronic CHF: Stable you have left sided headache, was concerned about temporal arteritis because of elevated ESR, you need to continueoral Prednison as instructed, and follow up with Dr. Miley Potts for continue or not in 3-5 days - take medication as instructed, never overdose or any misuse, or take with alcohol, because misuse of medicine may cause organ damage or , call your primary care physician if have questions of medicaitons. - call your primary care physician OR go to local emergency room if has any fever/chill, chest pain, shortness of breathing, nausea/vomiting/abdominal pain , facial droop/slurry speech/local weakness, or if has any questions. - fall precaution - diet as instructed - you need to follow up with your subspecialist - you should understand that it is important to follow up the above instruction , and "not following the above instruction" may cause delayed or missed care of your medical conditions which may cause permanent organ damage and even . Current Hospital Diet Patient's current hospital diet: AHA Diet (Heart Healthy) Discharge Diet Recommended Diet: AHA Diet (Heart Healthy), Low Sodium Diet (2gm Na) Pending Studies Studies pending at discharge: no Medical Emergencies . Who to Call and When: Medical Emergencies: If at any time you feel your situation is an emergency, please call 911 immediately. . Non-Emergent Contact Non-Emergency issues call your: Primary Care Provider . . "Provider Documentation" section prepared by Leo Berman. VTE Core Measure Inpt VTE Proph given/why not?: Enoxaparin (Lovenox)SQ
[2016-05-17] MEDS ORDERED: FUROSEMIDE 20 MG TAB PO STA (14:13)
--- NOTE | 2016-05-17 14:13 | Progress Note ---
Subjective Date of Service: May 17, 2016. Problem List Medical Problems: (1) Abdominal pain Status: Acute (2) Anemia Status: Acute (3) Elevated troponin Status: Acute (4) Fever Status: Acute (5) Pulmonary edema Status: Acute (6) Seizure Status: Acute (7) Sepsis Status: Acute (8) Substernal chest pain Status: Acute (9) Temporal headache Status: Acute Objective Vital Signs Date Time Temp Pulse Resp B/P Pulse Ox O2 Delivery O2 Flow Rate FiO2 05/17/16 12:55 36.5 91 20 95 Room Air 05/17/16 12:00 Room Air 05/17/16 11:46 36.5 91 20 137/77 95 Room Air 05/17/16 08:06 36.6 89 20 136/79 93 Room Air 05/17/16 08:00 Room Air 05/17/16 04:00 Room Air 05/17/16 03:36 36.6 89 20 137/80 93 Room Air 05/17/16 00:02 Room Air 05/16/16 23:25 36.9 93 20 132/67 93 Room Air 05/16/16 20:04 Room Air 05/16/16 19:29 36.9 96 18 137/87 96 Room Air 05/16/16 16:00 Room Air 05/16/16 15:21 37.1 99 20 147/67 95 Room Air Laboratory Results Last 24 Hours Test 05/17/16 06:40 White Blood Count 9.79 K/uL Red Blood Count 4.09 M/uL Hemoglobin 11.8 g/dL Hematocrit 34.7 % Mean Corpuscular Volume 84.8 fL Mean Corpuscular Hemoglobin 28.9 pg Mean Corpuscular Hemoglobin Concent 34.0 g/dl RDW Standard Deviation 47.1 fL RDW Coefficient of Variation 15.1 % Platelet Count 349 K/uL Mean Platelet Volume 9.8 fL Sodium Level 142 mmol/L Potassium Level 3.6 mmol/L Chloride Level 107 mmol/L Carbon Dioxide Level 22 mmol/L Anion Gap 13.0 mmol/L Blood Urea Nitrogen 41 mg/dl Creatinine 1.30 mg/dl Est Creatinine Clear Calc Drug Dose 54.5 ml/min Estimated GFR () 61.0 Estimated GFR (Non- 52.6 BUN/Creatinine Ratio 31.3 Random Glucose 118 mg/dl Calcium Level 9.0 mg/dl Magnesium Level 2.5 mg/dl Assessment and Plan 76-year-old white male admitted on 05/15/2016 because of chest pain, difficulty breathing and left-sided headache acute on chronic CHF with severe decreased LVEF at 25% Stable and improving CHF education to pt and , fluid restriction to 1.8 L daily Low dose Lasix at 20 mg by mouth daily Continue ARB Need to follow-up with PCP TSH was normal Chest pain with minimal elevated troponin likely because of demanding ischemia and troponin leakage, with current medical condition of CHF exacerbation Troponin was normalized, patient has no more chest pain,will follow-up L sided headache, was concerned about temporal arteritis because of elevated ESR , suboccipitals tender, headache on temporal area, visual disturbances on L eye as well: Admission physician has start prednisone, surgeon saw patient was planning to get temporal artery bx. However because patient is not cooperative secondary to dementia , he need to keep sedations because he may may be combative and not cooperative, discussed with the surgeon, patient's , decided not to do temporal artery biopsy. Now it is difficult to make decision because it is difficult to know if it is temporal arteritis are not, basic on the record and and my personal examination : there is never documented left temporal artery area pain, red or swollen, no documented of lesion decreased,, my personal examination I do not feel any left temporal artery pain, tender, swelling, yesterday and today. ESR is 60, therefore I personally feel it is not Likely temporal arteritis. In the situation of possible discharge tomorrow , I called to patient's primary care physician, discussed about the case, and planning to discharge patient home with the 40 mg by mouth prednisone daily and then PCP may continue to taper it off, if there is recurrent of the temporal area pain and then would definitely need to do the biopsy, Or , PCP may referral to die trouble shooter. Basion the above information I talked to patient's who POA, about the decisions and risks and benefits of doing temporal arteries biopsy, understand and willing to take on the risks of not to do temporal artery biopsy. Chronic kidney disease, stage 3, PT and OT evaluation and treatment, Watch kidney function, plan discharge tomorrow with home healthcare at home Continued [facility] stay due to: inadequate oral pain control Discharge planning: home, uncertain
[2016-05-18 00:19] VITALS: BP 135/81; PULSE 92; TEMP 36.7; O2SAT 92
[2016-05-18] MEDS: NITROGLYCERIN OINT 2% 1GM PACKET EXT SCH ×2 (03:41→08:47)
[2016-05-18] MEDS: LEVOTHYROXINE 50 MCG TAB PO SCH (06:19)
[2016-05-18 07:14] LABS: HEMATOCRIT 34.4 % (42-52); MEAN CELL VOLUME 86.4 fL (80-100); MEAN CORPUSCULAR HEMOGLOBIN 29.9 pg (25-34); MEAN CORPUSCULAR HGB CONC 34.6 g/dl (32-36); MEAN PLATELET VOLUME 9.8 fL (7.4-10.4); PLATELET COUNT 358 K/uL (130-400); RED BLOOD COUNT 3.98 M/uL (4.7-6.1); WHITE BLOOD COUNT 8.84 K/uL (4.8-10.8)
[2016-05-18 07:22] VITALS: BP 133/70; PULSE 84; TEMP 36.6; O2SAT 94
[2016-05-18 07:42] LABS: BUN/CREATININE RATIO 38.2 (10-20); CALCIUM 8.6 mg/dl (8.5-10.1); CREATININE 1.2 mg/dl (0.60-1.40); MAGNESIUM 2.6 mg/dl (1.8-2.4); POTASSIUM 3.7 mmol/L (3.5-5.1)
[2016-05-18] MEDS ORDERED: FUROSEMIDE 20 MG TAB PO SCH (08:00)
[2016-05-18] MEDS: LOSARTAN POTASSIUM 50 MG TAB PO SCH (08:45)
[2016-05-18] MEDS: ASPIRIN 81 MG ECTAB PO SCH (08:46)
[2016-05-18] MEDS: ENOXAPARIN 40 MG/0.4 ML SYR SC SCH (08:47)
[2016-05-18] MEDS: SERTRALINE HCL 100 MG TAB PO SCH (08:47)
[2016-05-18] MEDS: PANTOprazole SOD 40 MG TAB PO SCH (08:47)
--- NOTE | 2016-05-18 11:10 | Discharge Summary ---
Discharge Summary Date of Service May 18, 2016. Discharge Summary Admission Date: May 15, 2016 at 19:17 Discharge Date: May 18, 2016 Discharge Disposition: Home Principal Diagnosis: acute on chronic CHF Problems/Secondary Diagnoses: left sided headache, was concerned about temporal arteritis Procedures: No Consultations: Surgeon Medication Reconciliation New Medications: Pantoprazole (Pantoprazole Sodium) 40 Mg Tab 40 MG PO QAM for 14 Days, #14 TAB Prednisone (Prednisone) 20 Mg Tab 40 MG PO DAILY for 14 Days, #28 TAB Continued Medications: Aspirin (Aspirin Ec) 81 Mg Tab 81 MG PO QPM Cranberry-Vitamin C-Vitamin E (Cranberry Plus Vitamin C) 1 Cap Cap 1 CAP PO QPM Gemfibrozil (Lopid) 600 Mg Tab 600 MG PO QAM, TAB Levothyroxine Sodium (Synthroid) 50 Mcg Tab 50 MCG PO QAM Losartan Potassium (Cozaar) 100 Mg Tab 100 MG PO DAILY Multiple Vitamins W/ Minerals (Centrum Silver Adult 50+) 1 Tab Tab 1 TAB PO DAILY Ranitidine (Zantac) 150 Mg Tab 150 MG PO BID, TAB Sertraline HCl (Sertraline HCl) 100 Mg Tab 200 MG PO QAM Discharge Exam Sitting up to chair, dressed, ready to go home, no complaining, no left-sided headache, no left mormonism area headache or pain Review of Systems: Constitutional: No chills, No fatigue, No fever, No problem reported, No sweats, No weakness, No weight loss Eyes: No diplopia, No discharge, No eye pain, No problem reported, No redness, No worsening of vision ENT: No dental problems, No hearing loss, No nasal symptoms, No problem reported, No sore throat, No tinnitus, No trouble swallowing, No unusual epistaxis Respiratory: No cough, No dyspnea at rest, No dyspnea on exertion, No hemoptysis, No problem reported, No shortness of breath, No sputum, No wheezing Cardiovascular: No PND, No chest pain, No claudication, No edema, No orthopnea, No palpitations, No problem reported Abdomen: No GI bleeding, No constipation, No diarrhea, No nausea, No pain, No problem reported, No vomiting Musculoskeletal: No calf pain, No joint pain, No muscle pain, No problem reported, No swelling Genitourinary - Male: No dysuria, No hematuria, No impotence, No lesions, No penile discharge, No problem reported, No urinary frequency, No urinary hesitancy, No urinary incontinence, No urinary retention, No urinary urgency Neurologic: No balance problems, No memory loss, No numbness/tingling, No paralysis, No problem reported, No vertigo, No weakness Psychiatric: No anhedonism, No anxiety, No depression symptoms, No insomnia , No problem reported, No substance abuse Endocrine: No excessive thirst, No excessive urination, No fatigue, No problem reported Hematologic / Lymphatic: No abnormal bleeding/bruising, No clotting problems , No night sweats, No problem reported, No swollen lymph nodes Integumentary: No bleeding, No color change, No itch, No new/changing skin lesions, No problem reported, No rash Physical Exam: General Appearance: WD/WN, no apparent distress Eyes: normal inspection, PERRL ENT: normal ENT inspection, hearing grossly normal Neck: supple, no adenopathy Respiratory/Chest: chest non-tender, no respiratory distress, no accessory muscle use, + decreased breath sounds Cardiovascular: regular rate, rhythm, no gallop, no JVD, no murmur Abdomen / GI: normal bowel sounds, non tender, soft, no organomegaly, no pulsatile mass Extremities: normal inspection, no calf tenderness, normal capillary refill , no pedal edema 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, no motor/sensory deficits , alert, normal mood/affect, normal reflexes, oriented x 3 Skin: normal color, warm/dry Hospital Course 76-year-old white male admitted on 05/15/2016 because of chest pain, difficulty breathing and left-sided headache acute on chronic CHF with severe decreased LVEF at 25% Stable and improving CHF education to pt and , fluid restriction to 1.8 L daily Low dose Lasix at 20 mg by mouth daily Continue ARB Need to follow-up with PCP to adjust the dose of Lasix and watch for kidney function, PCP please follow-up TSH was normal Chest pain with minimal elevated troponin likely because of demanding ischemia and troponin leakage, with current medical condition of CHF exacerbation Troponin was normalized, patient has no more chest pain,will follow-up L sided headache, was concerned about temporal arteritis because of elevated ESR , suboccipitals tender, headache on temporal area, visual disturbances on L eye as well: Admission physician has start prednisone, surgeon saw patient was planning to get temporal artery bx. However because patient is not cooperative secondary to baseline dementia , he needs to keep deep sedations because he may may be combative and not cooperative, discussed with the surgeon, patient's , decided not to do temporal artery biopsy. Now it is difficult to make decision for the treatment of possible temporal arteritis because it is difficult to know if it is temporal arteritis are true or not, basic on the record and and my personal examination : there is never documented left temporal artery area pain, red or swollen, no documented of lesion decreased, my personal examination I do not feel any left temporal artery in the pre-auricle segment pain, tender, swelling, yesterday and today. And patient did use the finger 2. the pain areas was on top of the head of the left parietal area , ESR is 60, therefore I personally feel it is not Likely temporal arteritis. In the situation of discharge, I called to patient's primary care physician, discussed about the case, and planning to discharge patient home with the 40 mg by mouth prednisone daily and then PCP may continue to taper it off, if there is recurrent of the temporal area pain and then would definitely need to do the biopsy, Or , PCP may referral to claim analyst. Basion the above information I talked to patient's who POA, about the decisions and risks and benefits of doing temporal arteries biopsy, understand and willing to take on the risks of not to do temporal artery biopsy. Chronic kidney disease, stage 3, PT and OT evaluation and treatment, Watch kidney function, plan discharge tomorrow with home healthcare at home Discharge instruction you have acute on chronic CHF: Stable you have left sided headache, was concerned about temporal arteritis because of elevated ESR, you need to continueoral Prednison as instructed, and follow up with Dr. Miley Potts for continue or not in 3-5 days - take medication as instructed, never overdose or any misuse, or take with alcohol, because misuse of medicine may cause organ damage or , call your primary care physician if have questions of medicaitons. - call your primary care physician OR go to local emergency room if has any fever/chill, chest pain, shortness of breathing, nausea/vomiting/abdominal pain , facial droop/slurry speech/local weakness, or if has any questions. - fall precaution - diet as instructed - you need to follow up with your subspecialist - you should understand that it is important to follow up the above instruction , and "not following the above instruction" may cause delayed or missed care of your medical conditions which may cause permanent organ damage and even . Total Time Spent: Less than 30 minutes This includes examination of the patient, discharge planning, medication reconciliation, and communication with other providers. Discharge Instructions Please refer to the electronic Patient Visit Report (Discharge Instructions) for additional information. Additional Copies To Miley Potts M.D.
[2016-10-26] MEDS ORDERED: ERTA1INJ IV (08:17)
[2016-10-26] MEDS ORDERED: PANT40TA PO (08:17)
== END 2016-05-18 12:05 | disposition home health service (06) | DRG 291 ==
LOC: ENRESERVDT → ENRESERVTM → C.EDB 15:27 → C.EDINP 19:17 → C.2T 05-16 13:02 → C.MS4W 05-17 18:23
PROVIDERS: ADMIT Family Medicine; ATTEND Hospitalist
DX: I13.0 Hypertensive heart and chronic kidney disease with heart failure and stage 1 through stage 4 chronic kidney disease, or unspecified chronic kidney disease (principal); I50.43 Acute on chronic combined systolic (congestive) and diastolic (congestive) heart failure; Z68.27 Body mass index [BMI] 27.0-27.9, adult; G30.9 Alzheimer's disease, unspecified; F02.80 Dementia in other diseases classified elsewhere, unspecified severity, without behavioral disturbance, psychotic disturbance, mood disturbance, and anxiety; G40.909 Epilepsy, unspecified, not intractable, without status epilepticus; Z86.73 Personal history of transient ischemic attack (TIA), and cerebral infarction without residual deficits; Z83.6 Family history of other diseases of the respiratory system; Z79.82 Long term (current) use of aspirin; Z79.899 Other long term (current) drug therapy; E66.9 Obesity, unspecified; R04.0 Epistaxis; K21.9 Gastro-esophageal reflux disease without esophagitis; E03.9 Hypothyroidism, unspecified; N18.3 Chronic kidney disease, stage 3 (moderate); G47.33 Obstructive sleep apnea (adult) (pediatric); Z87.01 Personal history of pneumonia (recurrent)

== ENCOUNTER → 2016-08-04 | Outpatient (CLI) | payer OTHER, BC ==
[~2016-08-04] VITALS: Ht 177.8 cm; Wt 95.4 kg
[~2016-08-04] MED LIST changes: +CPR500 PO; +CRAN1TAB6 PO; +ERTA1INJ IV; +FURO-85 PO; -LISI-787 PO; +LOSA50TA6 PO; +METO25TA3 PO; +PANT40TA PO; +PRD20 PO; +PROM12.57 PO; +PRT40 PO; +SYN50 PO; +TRML160 TOP
[2016-08-04 15:37] VITALS: BP 127/70; PULSE 109; Ht 177.8 cm; Wt 95.4 kg
== END | disposition home or self-care (01) ==
LOC: C.NEUR 14:52
PROVIDERS: ATTEND Physician Assistant
DX: G47.33 Obstructive sleep apnea (adult) (pediatric) (principal)

== ENCOUNTER 2016-10-18 17:15 | Inpatient (IN) | payer OTHER, BC ==
[~2016-10-18] VITALS: Ht 177.8 cm; Wt 89.4 kg
[~2016-10-18 17:15] MED LIST changes: -CPR500 PO; -CRAN1TAB6 PO; -ERTA1INJ IV; -FURO-85 PO; -LEVO25TA5 PO; -LOSA50TA6 PO; -METO25TA3 PO; -PANT40TA PO; -PROM12.57 PO; -TRML160 TOP
[2016-10-18] MEDS ORDERED: ACETAMINOPHEN 500 MG TAB PO STA (17:24)
[2016-10-18] MEDS ORDERED: SODIUM CHLORIDE 0.9% 1000ML 1,000 ML IV ONE (17:24)
[2016-10-18] MEDS ORDERED: CPR500 PO (17:31)
[2016-10-18] MEDS ORDERED: FURO-85 PO (17:31)
[2016-10-18] MEDS ORDERED: METO25TA3 PO (17:31)
[2016-10-18] MEDS ORDERED: LEVO25TA5 PO (17:31)
[2016-10-18] MEDS ORDERED: CRAN1TAB6 PO (17:31)
[2016-10-18] MEDS ORDERED: PROM12.57 PO (17:31)
[2016-10-18] MEDS ORDERED: TRML160 TOP (17:31)
[2016-10-18] MEDS ORDERED: LOSA50TA6 PO (17:31)
[2016-10-18 17:42] LABS: BASO % 0.1 %; BASO ABS # 0.01 K/uL (0-0.2); COMPLETE YES; EOS % 0.7 %; HEMATOCRIT 29.8 % (42-52); IG% 0.3 %; LYMPH % 3.7 %; LYMPH ABS # 0.27 K/uL (1.2-3.4); MEAN CELL VOLUME 88.2 fL (80-100); MEAN CORPUSCULAR HEMOGLOBIN 29.9 pg (25-34); MEAN CORPUSCULAR HGB CONC 33.9 g/dl (32-36); MEAN PLATELET VOLUME 9.3 fL (7.4-10.4); MONO % 2.2 %; PLATELET COUNT 205 K/uL (130-400); RED BLOOD COUNT 3.38 M/uL (4.7-6.1); WHITE BLOOD COUNT 7.39 K/uL (4.8-10.8)
--- NOTE | 2016-10-18 17:46 | EMERGENCY ROOM VISIT NOTE ---
History Report prepared by [place]: Corey Herrera Under the Supervision of: Dr. Shaan Inman D.O. First contact with patient: 17:17 Chief Complaint: ALTERED MENTAL STATUS Stated Complaint: AMS, FEVER History of Present Illness The patient is a 76 year old male who presents to the Emergency Room for constant altered mental status starting earlier this morning. Per the EMS the patient was diagnosed with a a bladder infection this morning, and he took one dose of Cipro. Then the noticed that he had an altered mental status, confusion, and a worsening fever. Per the EMS the patient was having some abdominal pain and a cough. The patient has a history of Alzheimer's and Parkinson's. History is limited secondary to altered mental status. Source of History: EMS History Limited By: AMS Onset: this morning Position: other (global) Quality: other (altered mental status) Timing: constant Associated Symptoms: + cough, + abdominal pain Review of Systems HPI is limited secondary to altered mental status. Past Medical & Surgical Medical Problems: (1) Chest pain at rest (2) Heart disease (3) HTN (hypertension) (4) Pneumonia (5) SBO (small bowel obstruction) (6) Seizure-like activity (7) Shortness of breath (8) SIRS (systemic inflammatory response syndrome) (9) UTI (urinary tract infection) Family History FH: COPD (chronic obstructive pulmonary disease) Social History Smoking Status: Never Smoker Drug Use: none Marital Status: Housing Status: lives with significant other Occupation Status: retired Current/Historical Medications Scheduled Aspirin (Aspirin Ec), 81 MG PO QPM Ciprofloxacin (Ciprofloxacin HCl), 500 MG PO BID Cranberry (Vaccinium Macrocarp (Cranberry), 600 MG PO QPM Furosemide (Lasix), 20 MG PO BID Gemfibrozil (Lopid), 600 MG PO QAM Levothyroxine Sodium (Levothyroxine Sodium), 25 MCG PO DAILY Losartan Potassium (Cozaar), 50 MG PO DAILY Metoprolol Succinate (Toprol Xl), 25 MG PO HS Multiple Vitamins W/ Minerals (Centrum Silver Adult 50+), 1 TAB PO DAILY Pantoprazole (Pantoprazole Sodium), 40 MG PO QAM Sertraline HCl (Sertraline HCl), 200 MG PO QAM Scheduled PRN Promethazine (Phenergan ), 12.5 MG PO Q6H PRN for Nausea or Vomiting Triamcinolone (Triamcinolone Acetonide), 1 APPLN TOP DAILY PRN for Itching Allergies Coded Allergies: No Known Allergies (Unverified , 10/18/16) Physical Exam Vital Signs Date Time Temp Pulse Resp B/P (MAP) Pulse Ox O2 Delivery O2 Flow Rate FiO2 10/18/16 19:38 89 26 97 10/18/16 19:33 38.7 89 24 111/54 98 10/18/16 18:10 107 10/18/16 18:06 108 26 95 10/18/16 18:01 133/67 10/18/16 17:49 89 Room Air 10/18/16 17:49 39.9 10/18/16 17:48 106/50 10/18/16 17:48 93 Nasal Cannula 2.0 10/18/16 17:45 109 23 89 10/18/16 17:22 91 Room Air 10/18/16 17:22 40.0 110 12 163/63 91 Room Air 10/18/16 17:20 163/63 Physical Exam GENERAL: Patient is awake and looking around the room, and appears absent. The patient follows commands intermittently.. EYES: The conjunctivae are clear. The pupils are round and reactive. EARS, NOSE, MOUTH AND THROAT: The nose is without any evidence of any deformity. Mucous membranes are dry tongue is midline NECK: The neck is nontender and supple. RESPIRATORY: Shallow respirations noted. Mild tachypnea. CARDIOVASCULAR: Tachycardia rate and regular rhythm noted there no murmurs noted on auscultation GASTROINTESTINAL: The abdomen is soft. Bowel sounds are present in all quadrants. Abdomen is nontender PELVIS: The Pelvis is stable. No tenderness to palpation is noted. BACK: No midline tenderness or or step-off noted range of motion in flexion extension as well as rotation no signs of muscle spasm noted MUSCULOSKELETAL/EXTREMITIES: There is no evidence of gross deformity full range of motion is noted in the hips and shoulders SKIN: Trace pedal edema bilaterally. NEUROLOGIC: Does not answer questions. Follows commands intermittently. Moves all extremities. Unable to assess at this time. Medical Decision & Procedures ER Provider Diagnostic Interpretation: Radiology results as stated below per my review and radiologist interpretation: HEAD WITHOUT CONTRAST (CT) CLINICAL HISTORY: 76 years-old Male presenting with altered MS. TECHNIQUE: Multidetector CT imaging of the head was performed without the use of intravenous contrast. IV contrast: None. A dose lowering technique was used consistent with the principles of ALARA (as low as reasonably achievable). COMPARISON: 05/15/2016. CT DOSE (mGy.cm): The estimated cumulative dose is 1880.14 inclusive of the abdomen and pelvis. FINDINGS: Certified Master Safecracker topogram: Unremarkable. Ventricular prominence unchanged from prior exam likely secondary to central predominant parenchymal volume loss and ex vacuo dilatation. Periventricular and subcortical white matter hypoattenuation similar to prior exam, nonspecific but likely chronic small vessel ischemic change. No mass effect or midline shift. No hemorrhage or acute territorial infarct. No extra-axial fluid collection. Paranasal sinuses and mastoid air cells clear. Calvarium intact. IMPRESSION: 1. No acute intracranial pathology. Electronically signed by: Don Khoury M.D. 10/18/2016 6:33 PM Dictated Date/Time: 10/18/2016 6:30 PM CHEST ONE VIEW PORTABLE CLINICAL HISTORY: 76 years-old Male presenting with Sepsis. TECHNIQUE: Portable upright AP view of the chest was obtained. COMPARISON: 05/17/2016. FINDINGS: Atherosclerosis of aortic arch. Mildly prominent cardiac silhouette. No focal lung opacity. No large effusion or pneumothorax. Multilevel degenerative changes of the thoracic spine. Upper abdomen within normal limits. IMPRESSION: 1. Cardiomegaly. No dianelys pulmonary edema. No convincing evidence of acute cardiopulmonary disease. Electronically signed by: Don Khoury M.D. 10/18/2016 6:06 PM Dictated Date/Time: 10/18/2016 6:05 PM ABD/PELVIS NO IV OR ORAL CONT CLINICAL HISTORY: 76 years-old Male presenting with altered MS, fever, . TECHNIQUE: Multidetector CT of the abdomen and pelvis was performed without the use of intravenous contrast. IV contrast: None. A dose lowering technique was used consistent with the principles of ALARA (as low as reasonably achievable). COMPARISON: 02/16/2015. CT DOSE (mGy.cm): The estimated cumulative dose is 1880.14 mGy.cm. FINDINGS: Certified Master Safecracker topogram: Unremarkable. Lung bases: Minimal dependent changes, likely atelectasis. Multichamber enlargement of the heart. Coronary artery calcification. No pericardial or pleural effusion. Liver: Normal morphology. Hepatic steatosis by liver density. Biliary: No gross biliary ductal dilatation allowing for noncontrast technique. Normal gallbladder. Pancreas: Mild parenchymal atrophy. Spleen: Enlarged measuring 13.6 cm in maximal sagittal dimension. Adrenal glands: Predominantly fat-containing nodule in the right adrenal gland measuring 12 mm, previously 10 mm. This is consistent with a myelolipoma. Left adrenal gland normal. Kidneys and ureters: No nephrolithiasis. No hydronephrosis. Normal ureters. Gastrointestinal tract: Few sigmoid diverticula. No bowel obstruction. Peritoneal cavity: No free fluid or intraperitoneal gas. Bladder: Decompressed with a Soriano catheter. Pelvic organs: Prostate and seminal vesicles normal. Vasculature: Atherosclerosis of the normal caliber abdominal aorta. Lymph nodes: No enlarged lymph nodes in the abdomen or pelvis. Abdominal wall: Fat-containing left inguinal hernia. Musculoskeletal: Degenerative changes of the spine. IMPRESSION: 1. No acute intra-abdominal pathology. 2. Hepatic steatosis. 3. Mild splenomegaly. 4. Limited diverticulosis. Electronically signed by: Don Khoury M.D. 10/18/2016 6:40 PM Dictated Date/Time: 10/18/2016 6:33 PM Laboratory Results 10/18/16 17:26 Red Blood Count 3.38, Mean Corpuscular Volume 88.2, Mean Corpuscular Hemoglobin 29.9, Mean Corpuscular Hemoglobin Concent 33.9, Mean Platelet Volume 9.3, Neutrophils (%) (Auto) 93.0, Lymphocytes (%) (Auto) 3.7, Monocytes (%) (Auto) 2.2, Eosinophils (%) (Auto) 0.7, Basophils (%) (Auto) 0.1, Neutrophils # (Auto) 6.88, Lymphocytes # (Auto) 0.27, Monocytes # (Auto) 0.16, Eosinophils # (Auto) 0.05, Basophils # (Auto) 0.01 10/18/16 17:26 Test 10/18/16 17:26 10/18/16 17:30 10/18/16 17:38 10/18/16 18:01 White Blood Count 7.39 K/uL (4.8-10.8) Red Blood Count 3.38 M/uL (4.7-6.1) Hemoglobin 10.1 g/dL (14.0-18.0) Hematocrit 29.8 % (42-52) Mean Corpuscular Volume 88.2 fL (80-100) Mean Corpuscular Hemoglobin 29.9 pg (25-34) Mean Corpuscular Hemoglobin Concent 33.9 g/dl (32-36) Platelet Count 205 K/uL (130-400) Mean Platelet Volume 9.3 fL (7.4-10.4) Neutrophils (%) (Auto) 93.0 % Lymphocytes (%) (Auto) 3.7 % Monocytes (%) (Auto) 2.2 % Eosinophils (%) (Auto) 0.7 % Basophils (%) (Auto) 0.1 % Neutrophils # (Auto) 6.88 K/uL (1.4-6.5) Lymphocytes # (Auto) 0.27 K/uL (1.2-3.4) Monocytes # (Auto) 0.16 K/uL (0.11-0.59) Eosinophils # (Auto) 0.05 K/uL (0-0.5) Basophils # (Auto) 0.01 K/uL (0-0.2) RDW Standard Deviation 48.1 fL (36.4-46.3) RDW Coefficient of Variation 14.8 % (11.5-14.5) Immature Granulocyte % (Auto) 0.3 % Immature Granulocyte # (Auto) 0.02 K/uL (0.00-0.02) Erythrocyte Sedimentation Rate 51 mm/hr (0-14) Prothrombin Time 12.4 SECONDS (9.0-12.0) Prothromb Time International Ratio 1.2 (0.9-1.1) Activated Partial Thromboplast Time 26.4 SECONDS (21.0-31.0) Partial Thromboplastin Ratio 1.0 Anion Gap 11.0 mmol/L (3-11) Estimated GFR () 44.1 Estimated GFR (Non- 38.1 BUN/Creatinine Ratio 18.4 (10-20) Calcium Level 9.1 mg/dl (8.5-10.1) Phosphorus Level 2.8 mg/dl (2.5-4.9) Magnesium Level 2.0 mg/dl (1.8-2.4) Total Bilirubin 0.5 mg/dl (0.2-1) Aspartate Amino Transf (AST/SGOT) 25 U/L (15-37) Alanine Aminotransferase (ALT/SGPT) 24 U/L (12-78) Alkaline Phosphatase 75 U/L (45-117) Total Creatine Kinase 35 U/L (39-308) Creatine Kinase MB < 0.5 ng/ml (0.5-3.6) Creatine Kinase MB Ratio (0-3.0) Troponin I 0.018 ng/ml (0-0.045) C-Reactive Protein 14.90 mg/dl (0-0.29) Pro-B-Type Natriuretic Peptide 3372 pg/ml (0-1800) Total Protein 7.1 gm/dl (6.4-8.2) Albumin 3.0 gm/dl (3.4-5.0) Globulin 4.1 gm/dl (2.5-4.0) Albumin/Globulin Ratio 0.7 (0.9-2) Lipase 196 U/L (73-393) Urine Color YELLOW Urine Appearance CLOUDY (CLEAR) Urine pH 5.0 (4.5-7.5) Urine Specific [place] 1.014 (1.000-1.030) Urine Protein 1+ (NEG) Urine Glucose (UA) NEG (NEG) Urine Ketones NEG (NEG) Urine Occult Blood 3+ (NEG) Urine Nitrite NEG (NEG) Urine Bilirubin NEG (NEG) Urine Urobilinogen NEG (NEG) Urine Leukocyte Esterase MODERATE (NEG) Urine WBC (Auto) >30 /hpf (0-5) Urine RBC (Auto) 10-30 /hpf (0-4) Urine Hyaline Casts (Auto) /lpf (0-5) Urine Epithelial Cells (Auto) 10-20 /lpf (0-5) Urine Bacteria (Auto) 2+ (NEG) Urine Crystals AMORPHOUS SEDIMENT (NONE Urine Pathogenic Casts /lpf (0) Bedside Lactic Acid Venous 2.09 mmol/L (0.90-1.70) Venous Blood pH 7.46 (7.36-7.41) Venous Blood Partial Pressure CO2 31 mmHg (38.0-50.0) Venous Blood Partial Pressure O2 54 mmHg Venous Blood HCO3 22 mmol/L Venous Blood Oxygen Saturation 88.2 % Venous Blood Base Excess -1.7 mmol/L Laboratory results per my review. Medications Administered Medications (Trade) Dose Ordered Sig/Raudel Route Start Time Stop Time Status Last Admin Dose Admin Sodium Chloride 1,000 ml @ 999 mls/hr Q1H1M ONCE IV 10/18/16 17:24 10/18/16 18:24 DC 10/18/16 18:06 999 MLS/HR Acetaminophen (Tylenol Tab) 1,000 mg NOW STAT PO 10/18/16 17:24 10/18/16 17:26 DC 10/18/16 18:06 1,000 MG Cefepime HCl 2000 mg/Dextrose 122.6 ml @ 200 mls/hr NOW STAT IV 10/18/16 18:38 10/18/16 19:14 DC 10/18/16 19:33 200 MLS/HR Sodium Chloride 1,000 ml @ 75 mls/hr [id number] IV 10/18/16 19:51 11/17/16 19:50 10/18/16 22:09 75 MLS/HR ECG Indication: altered mental status Rate (beats per minute): 112 Rhythm: sinus tachycardia Findings: LBBB, no ectopy Comparison ECG Date: 05/15/16 Change: Increased rate ED Course 171: The patient was evaluated in room B7. A complete history and physical examination were performed. 1724: Tylenol Tab 1000mg PO, NSS 1,000 ml @ 999 mls/hr IV 1838: Cefepime HCL 2000mg/ Dextrose 122.6ml @ 200mls/hr 190: I reevaluated the patient, and he was agreeable to the treatment plan. 1911: I discussed the patient's case with Dr. Tim, Hospitalist. He is going to evaluate the patient for further treatment. Medical Decision Differential diagnosis: Etiologies such as metabolic, infection, hypoglycemia, electrolyte abnormalities , cardiac sources, intracerebral event, toxicologic, neurologic, as well as others were entertained. Nursing notes reviewed. Additional history is obtained from the prehospital personnel. Additional history is obtained from the patient's significant other. The patient is a 76-year-old male who presented to the emergency department for an evaluation of fever and lethargy. The patient was treated with IV fluids in the emergency department. IV fluids were managed cautiously because of the patient's history of CHF. He was also given IV antibiotics for presumed urinary tract infection. I discussed the patient's laboratory and radiographic studies with him as well as his significant other. The patient was also discussed with the on-call [facility] hospitalist group. They've agreed to evaluate patient in emergency department for further management and disposition. Medication Reconcilliation Current Medication List: was personally reviewed by me Consults Time Called: 1906 Consulting Physician: Dr. Tim, Hospitalist Returned Call: 1911 I discussed the patient's case with Dr. Tim, Hospitalist. He is going to evaluate the patient for further treatment. Impression Primary Impression: Sepsis Additional Impressions: Fever Altered mental status Urinary tract infection Scribe Attestation The scribe's documentation has been prepared under my direction and personally reviewed by me in its entirety. I confirm that the note above accurately reflects all work, treatment, procedures, and medical decision making performed by me. Departure Information Dispostion Being Evaluated By Hospitalist Referrals Miley Potts M.D. (PCP) Patient Instructions My [facility] Problem Qualifiers Primary Impression: Sepsis Sepsis type: sepsis due to unspecified organism Qualified Codes: A41.9 - Sepsis, unspecified organism Additional Impressions: Fever Fever type: unspecified Qualified Codes: R50.9 - Fever, unspecified Altered mental status Altered mental status type: unspecified Qualified Codes: R41.82 - Altered mental status, unspecified Urinary tract infection Urinary tract infection type: site unspecified Hematuria presence: without hematuria Qualified Codes: N39.0 - Urinary tract infection, site not specified
[2016-10-18 18:00] LABS: ALT/SGPT 24 U/L (12-78); BLOOD UREA NITROGEN 31 mg/dl (7-18); BUN/CREATININE RATIO 18.4 (10-20); CALCIUM 9.1 mg/dl (8.5-10.1); CARBON DIOXIDE 21 mmol/L (21-32); CHLORIDE 106 mmol/L (98-107); GLUCOSE 157 mg/dl (70-99); POTASSIUM 4.7 mmol/L (3.5-5.1); SODIUM 138 mmol/L (136-145)
[2016-10-18 18:04] LABS: ALB/GLOB RATIO 0.7 (0.9-2); ALKALINE PHOSPHATASE 75 U/L (45-117); AST/SGOT 25 U/L (15-37); PHOSPHORUS 2.8 mg/dl (2.5-4.9)
[2016-10-18 18:06] LABS: INR 1.2 (0.9-1.1); PROTHROMBIN TIME (PATIENT) 12.4 SECONDS (9.0-12.0)
--- NOTE | 2016-10-18 18:07 | DIAGNOSTIC IMAGING REPORT ---
CHEST ONE VIEW PORTABLE CLINICAL HISTORY: 76 years-old Male presenting with Sepsis. TECHNIQUE: Portable upright AP view of the chest was obtained. COMPARISON: 05/17/2016. FINDINGS: Atherosclerosis of aortic arch. Mildly prominent cardiac silhouette. No focal lung opacity. No large effusion or pneumothorax. Multilevel degenerative changes of the thoracic spine. Upper abdomen within normal limits. IMPRESSION: 1. Cardiomegaly. No dianelys pulmonary edema. No convincing evidence of acute cardiopulmonary disease. Electronically signed by: Don Khoury M.D. 10/18/2016 6:06 PM Dictated Date/Time: 10/18/2016 6:05 PM
[2016-10-18 18:19] LABS: VEN BLD GAS O2 SATURATION 88.2 %; VEN BLOOD GAS BASE EXCESS -1.7 mmol/L
--- NOTE | 2016-10-18 18:34 | DIAGNOSTIC IMAGING REPORT ---
HEAD WITHOUT CONTRAST (CT) CLINICAL HISTORY: 76 years-old Male presenting with altered MS. TECHNIQUE: Multidetector CT imaging of the head was performed without the use of intravenous contrast. IV contrast: None. A dose lowering technique was used consistent with the principles of ALARA (as low as reasonably achievable). COMPARISON: 05/15/2016. CT DOSE (mGy.cm): The estimated cumulative dose is 1880.14 inclusive of the abdomen and pelvis. FINDINGS: Dice Table Person topogram: Unremarkable. Ventricular prominence unchanged from prior exam likely secondary to central predominant parenchymal volume loss and ex vacuo dilatation. Periventricular and subcortical white matter hypoattenuation similar to prior exam, nonspecific but likely chronic small vessel ischemic change. No mass effect or midline shift. No hemorrhage or acute territorial infarct. No extra-axial fluid collection. Paranasal sinuses and mastoid air cells clear. Calvarium intact. IMPRESSION: 1. No acute intracranial pathology. Electronically signed by: Don Khoury M.D. 10/18/2016 6:33 PM Dictated Date/Time: 10/18/2016 6:30 PM
[2016-10-18] MEDS ORDERED: CEFEPIME IV 2,000 MG in DEXTROSE 5% 100ML 100 ML IV STA (18:38)
--- NOTE | 2016-10-18 18:42 | DIAGNOSTIC IMAGING REPORT ---
ABD/PELVIS NO IV OR ORAL CONT CLINICAL HISTORY: 76 years-old Male presenting with altered MS, fever, . TECHNIQUE: Multidetector CT of the abdomen and pelvis was performed without the use of intravenous contrast. IV contrast: None. A dose lowering technique was used consistent with the principles of ALARA (as low as reasonably achievable). COMPARISON: 02/16/2015. CT DOSE (mGy.cm): The estimated cumulative dose is 1880.14 mGy.cm. FINDINGS: Ccna topogram: Unremarkable. Lung bases: Minimal dependent changes, likely atelectasis. Multichamber enlargement of the heart. Coronary artery calcification. No pericardial or pleural effusion. Liver: Normal morphology. Hepatic steatosis by liver density. Biliary: No gross biliary ductal dilatation allowing for noncontrast technique. Normal gallbladder. Pancreas: Mild parenchymal atrophy. Spleen: Enlarged measuring 13.6 cm in maximal sagittal dimension. Adrenal glands: Predominantly fat-containing nodule in the right adrenal gland measuring 12 mm, previously 10 mm. This is consistent with a myelolipoma. Left adrenal gland normal. Kidneys and ureters: No nephrolithiasis. No hydronephrosis. Normal ureters. Gastrointestinal tract: Few sigmoid diverticula. No bowel obstruction. Peritoneal cavity: No free fluid or intraperitoneal gas. Bladder: Decompressed with a Soriano catheter. Pelvic organs: Prostate and seminal vesicles normal. Vasculature: Atherosclerosis of the normal caliber abdominal aorta. Lymph nodes: No enlarged lymph nodes in the abdomen or pelvis. Abdominal wall: Fat-containing left inguinal hernia. Musculoskeletal: Degenerative changes of the spine. IMPRESSION: 1. No acute intra-abdominal pathology. 2. Hepatic steatosis. 3. Mild splenomegaly. 4. Limited diverticulosis. Electronically signed by: Don Khoury M.D. 10/18/2016 6:40 PM Dictated Date/Time: 10/18/2016 6:33 PM
[2016-10-18 18:49] LABS: URINE APPEARANCE CLOUDY (CLEAR); URINE BILIRUBIN NEG (NEG); URINE COLOR YELLOW; URINE NITRITE NEG (NEG); URINE SPECIFIC GRAVITY 1.014 (1.000-1.030); UROBILINOGEN NEG (NEG); ZZURINE CULT IF INDIC CATH YES
[2016-10-18 18:51] LABS: MANUAL MICROSCOPIC REQUIRED? NO; REVIEW REQ? YES
[2016-10-18] MEDS ORDERED: NITROGLYCERIN 0.4 MG SL PER TAB CHARGE SL PRN (20:00)
[2016-10-18] MEDS ORDERED: PROMETHAZINE HCL 25 MG TAB PO PRN (20:00)
[2016-10-18] MEDS ORDERED: TRIAMCINOLONE ACET 0.025% CR 15 GM TUBE TOP PRN (20:00)
[2016-10-18 21:41] VITALS: BP 111/62; PULSE 83; TEMP 36.9; O2SAT 98
[2016-10-18 21:56] VITALS: TEMP 36.9
[2016-10-18] MEDS ORDERED: CEFEPIME CONSULT ACTIVE PRN ×2 (22:00)
[2016-10-18] MEDS ORDERED: VANCOMYCIN INJ 2,500 MG in SODIUM CHLORIDE 0.9% 500ML 500 ML IV ONE (22:00)
[2016-10-18] MEDS ORDERED: VANCOMYCIN CONSULT ACTIVE PRN (22:00)
[2016-10-18 22:04] VITALS: Ht 177.8 cm; Wt 89.4 kg
[2016-10-18] MEDS: SODIUM CHLORIDE 0.9% 1000ML 1,000 ML IV SCH (22:09)
[2016-10-18 22:11] VITALS: BP 111/62; PULSE 83; TEMP 36.9; O2SAT 98
--- NOTE | 2016-10-18 22:43 | History and Physical ---
History & Physical Date & Time of Service: Oct 18, 2016 at 22:42 Chief Complaint: Sirs, Uti Primary Care Physician: Miley Potts M.D. History of Present Illness Source: patient, spouse The patient is a 76-year-old male who is brought by EMS to the emergency department due to alteration in mental status that had begun over the past several days, per his who was in attendance, and worsened in particular beginning in the morning prior to arrival. His reports that the patient had been taken to the PCPs office, and had begun treatment for a bladder infection with Cipro, of which he took one dose today. As the day progressed, the noticed worsening confusion, altered mental status and fever. He also had some development of abdominal discomfort and cough. His reports that he has dementia on the basis of Alzheimer's and Parkinson's. For this reason his history of present illness is limited secondary to altered mental status. Past Medical/Surgical History Medical Problems: (1) Heart disease Status: Chronic (2) HTN (hypertension) Status: Chronic (3) SBO (small bowel obstruction) Status: Resolved Family History FH: COPD (chronic obstructive pulmonary disease) Social History Smoking Status: Never Smoker Smokeless Tobacco Use: No Alcohol Use: none Drug Use: none Marital Status: Housing status: lives with family Occupational Status: retired Immunizations History of Influenza Vaccine: Unknown History of Tetanus Vaccine?: Unknown History of Pneumococcal: Unknown History of Hepatitis B Vaccine: Unknown Multi-Drug Resistant Organisms History of MDRO: No Allergies Coded Allergies: No Known Allergies (Unverified , 10/18/16) Home Medications Scheduled Aspirin (Aspirin Ec), 81 MG PO QPM Ciprofloxacin (Ciprofloxacin HCl), 500 MG PO BID Cranberry (Vaccinium Macrocarp (Cranberry), 600 MG PO QPM Furosemide (Lasix), 20 MG PO BID Gemfibrozil (Lopid), 600 MG PO QAM Levothyroxine Sodium (Levothyroxine Sodium), 25 MCG PO DAILY Losartan Potassium (Cozaar), 50 MG PO DAILY Metoprolol Succinate (Toprol Xl), 25 MG PO HS Multiple Vitamins W/ Minerals (Centrum Silver Adult 50+), 1 TAB PO DAILY Pantoprazole (Pantoprazole Sodium), 40 MG PO QAM Sertraline HCl (Sertraline HCl), 200 MG PO QAM Scheduled PRN Promethazine (Phenergan ), 12.5 MG PO Q6H PRN for Nausea or Vomiting Triamcinolone (Triamcinolone Acetonide), 1 APPLN TOP DAILY PRN for Itching Review of Systems His review of systems is limited due to altered mental status and baseline dementia, and is reported in the history of present illness above per the ' s notations. She denies that he's had any blood in urine or stool, focal weakness in arms or legs, rash. He has had a history of UTIs due to Escherichia coli which have been moderately resistant. He has had visitations in the past by [facility], and particular a nurse by the name of Hannah. Physical Exam Vital Signs Date Time Temp Pulse Resp B/P (MAP) Pulse Ox O2 Delivery O2 Flow Rate FiO2 10/18/16 22:11 36.9 83 22 111/62 98 Nasal Cannula 2.0 10/18/16 21:56 36.9 10/18/16 21:41 36.9 83 22 111/62 (78) 98 Nasal Cannula 2.0 10/18/16 21:18 36.6 92 20 113/59 97 10/18/16 21:01 36.6 113/59 10/18/16 20:38 92 20 97 10/18/16 20:31 120/59 10/18/16 20:08 87 23 98 10/18/16 20:01 101/54 10/18/16 19:38 89 26 97 10/18/16 19:33 38.7 89 24 111/54 98 10/18/16 18:10 107 10/18/16 18:06 108 26 95 10/18/16 18:01 133/67 10/18/16 17:49 89 Room Air 10/18/16 17:49 39.9 10/18/16 17:48 106/50 10/18/16 17:48 93 Nasal Cannula 2.0 10/18/16 17:45 109 23 89 10/18/16 17:22 91 Room Air 10/18/16 17:22 40.0 110 12 163/63 91 Room Air 10/18/16 17:20 163/63 The patient is awake, well-developed and adequately nourished, alert and oriented 2, confused, normocephalic and atraumatic, lying in bed and in no acute distress. HEENT--PERRL, EOMI, mucous membranes and oropharynx dry. Neck--supple, no JVD or bruits, thyroid normal, trachea midline, no adenopathy. Heart--normal S1 and S2, no extra beats, no murmurs, rubs or gallops. Lungs--clear bilaterally but diminished throughout, no respiratory distress, no accessory muscle use. Abdomen--normal bowel sounds and soft, nontender and nondistended, no hernias or masses, no organomegaly. Extremities--no cyanosis, clubbing. There is 1+ bilateral pretibial pitting edema. There are good distal pulses b/l. Dermatologic--right lower extremity anterior tibial area with one open wound approximately 0.5-1 cm in diameter. A few other scattered ecchymoses Neurologic--cranial nerves II through XII grossly intact, motor and sensory examination normal. Rheumatologic--normal range of motion for age. Psychiatric--normal affect. Diagnostics Laboratory Results Results Past 24 Hours Test 10/18/16 17:26 10/18/16 17:30 10/18/16 17:38 10/18/16 18:01 Range/Units White Blood Count 7.39 4.8-10.8 K/uL Red Blood Count 3.38 4.7-6.1 M/uL Hemoglobin 10.1 14.0-18.0 g/dL Hematocrit 29.8 42-52 % Mean Corpuscular Volume 88.2 80-100 fL Mean Corpuscular Hemoglobin 29.9 25-34 pg Mean Corpuscular Hemoglobin Concent 33.9 32-36 g/dl Platelet Count 205 130-400 K/uL Mean Platelet Volume 9.3 7.4-10.4 fL Neutrophils (%) (Auto) 93.0 % Lymphocytes (%) (Auto) 3.7 % Monocytes (%) (Auto) 2.2 % Eosinophils (%) (Auto) 0.7 % Basophils (%) (Auto) 0.1 % Neutrophils # (Auto) 6.88 1.4-6.5 K/uL Lymphocytes # (Auto) 0.27 1.2-3.4 K/uL Monocytes # (Auto) 0.16 0.11-0.59 K/uL Eosinophils # (Auto) 0.05 0-0.5 K/uL Basophils # (Auto) 0.01 0-0.2 K/uL RDW Standard Deviation 48.1 36.4-46.3 fL RDW Coefficient of Variation 14.8 11.5-14.5 % Immature Granulocyte % (Auto) 0.3 % Immature Granulocyte # (Auto) 0.02 0.00-0.02 K/uL Erythrocyte Sedimentation Rate 51 0-14 mm/hr Prothrombin Time 12.4 9.0-12.0 SECONDS Prothromb Time International Ratio 1.2 0.9-1.1 Activated Partial Thromboplast Time 26.4 21.0-31.0 SECONDS Partial Thromboplastin Ratio 1.0 Sodium Level 138 136-145 mmol/L Potassium Level 4.7 3.5-5.1 mmol/L Chloride Level 106 98-107 mmol/L Carbon Dioxide Level 21 21-32 mmol/L Anion Gap 11.0 3-11 mmol/L Blood Urea Nitrogen 31 7-18 mg/dl Creatinine 1.70 0.60-1.40 mg/dl Estimated GFR () 44.1 Estimated GFR (Non- 38.1 BUN/Creatinine Ratio 18.4 10-20 Random Glucose 157 70-99 mg/dl Calcium Level 9.1 8.5-10.1 mg/dl Phosphorus Level 2.8 2.5-4.9 mg/dl Magnesium Level 2.0 1.8-2.4 mg/dl Total Bilirubin 0.5 0.2-1 mg/dl Aspartate Amino Transf (AST/SGOT) 25 15-37 U/L Alanine Aminotransferase (ALT/SGPT) 24 12-78 U/L Alkaline Phosphatase 75 45-117 U/L Total Creatine Kinase 35 39-308 U/L Creatine Kinase MB < 0.5 0.5-3.6 ng/ml Creatine Kinase MB Ratio 0-3.0 Troponin I 0.018 0-0.045 ng/ml C-Reactive Protein 14.90 0-0.29 mg/dl Pro-B-Type Natriuretic Peptide 3372 0-1800 pg/ml Total Protein 7.1 6.4-8.2 gm/dl Albumin 3.0 3.4-5.0 gm/dl Globulin 4.1 2.5-4.0 gm/dl Albumin/Globulin Ratio 0.7 0.9-2 Lipase 196 73-393 U/L Urine Color YELLOW Urine Appearance CLOUDY CLEAR Urine pH 5.0 4.5-7.5 Urine Specific [place] 1.014 1.000-1.030 Urine Protein 1+ NEG Urine Glucose (UA) NEG NEG Urine Ketones NEG NEG Urine Occult Blood 3+ NEG Urine Nitrite NEG NEG Urine Bilirubin NEG NEG Urine Urobilinogen NEG NEG Urine Leukocyte Esterase MODERATE NEG Urine WBC (Auto) >30 0-5 /hpf Urine RBC (Auto) 10-30 0-4 /hpf Urine Hyaline Casts (Auto) 0-5 /lpf Urine Epithelial Cells (Auto) 10-20 0-5 /lpf Urine Bacteria (Auto) 2+ NEG Urine Crystals AMORPHOUS SEDIMENT NONE PRSENT Urine Pathogenic Casts 0 /lpf Bedside Lactic Acid Venous 2.09 0.90-1.70 mmol/L Venous Blood pH 7.46 7.36-7.41 Venous Blood Partial Pressure CO2 31 38.0-50.0 mmHg Venous Blood Partial Pressure O2 54 mmHg Venous Blood HCO3 22 mmol/L Venous Blood Oxygen Saturation 88.2 % Venous Blood Base Excess -1.7 mmol/L Test 10/18/16 21:41 Range/Units Bedside Glucose 156 70-99 mg/dl Microbiology Results 10/18/16 Blood Culture, Received Pending 10/18/16 Blood Culture, Received Pending 10/18/16 Urine Culture, Received Pending Diagnostic Radiology Patient Name: JOHAN PANTOJA SR Unit Number: [id number] Dictated: 10/18/161829 Transcribed: 10/18/161829 PBS Printed Date/Time: [~ rep prt dt]/[~ rep prt tm] [~ rep ct labl] - [~ rep ct ivnm] [facility] [place] [address] Dictated: 10/18/161829 Transcribed: 10/18/161829 PBS Printed Date/Time: [~ rep prt dt]/[~ rep prt tm] [~ rep ct labl] - [~ rep ct ivnm] [~ rep ct add3]] HEAD WITHOUT CONTRAST (CT) CLINICAL HISTORY: 76 years-old Male presenting with altered MS. TECHNIQUE: Multidetector CT imaging of the head was performed without the use of intravenous contrast. IV contrast: None. A dose lowering technique was used consistent with the principles of ALARA (as low as reasonably achievable). COMPARISON: 05/15/2016. CT DOSE (mGy.cm): The estimated cumulative dose is 1880.14 inclusive of the abdomen and pelvis. FINDINGS: Access Consultant topogram: Unremarkable. Ventricular prominence unchanged from prior exam likely secondary to central predominant parenchymal volume loss and ex vacuo dilatation. Periventricular and subcortical white matter hypoattenuation similar to prior exam, nonspecific but likely chronic small vessel ischemic change. No mass effect or midline shift. No hemorrhage or acute territorial infarct. No extra-axial fluid collection. Paranasal sinuses and mastoid air cells clear. Calvarium intact. IMPRESSION: 1. No acute intracranial pathology. Electronically signed by: Don Khoury M.D. 10/18/2016 6:33 PM Dictated Date/Time: 10/18/2016 6:30 PM The status of this report is Signed. Draft = Not yet reviewed or approved by Radiologist. Signed = Reviewed and approved by Radiologist. <AttendingPhy></AttendingPhy> <FamilyPhy>Miley Potts M.D.</FamilyPhy> < PrimaryPhy>Miley Potts M.D.</PrimaryPhy> <UnitNumber>[id number]</UnitNumber> < VisitNumber>[id number]</VisitNumber> <PatientName>JOHAN PANTOJA SR</ PatientName> <DateOfBirth>1940</DateOfBirth> <Location>C.EDB</Location> < ServiceDate>10/18/16</ServiceDate> <MNE>ESINDI</MNE> <OrderingPhy>Shaan Inman D.O.</OrderingPhy> <OrderingPhyMNE>f rep ord dr nelson</OrderingPhyMNE> <DictatingPhyMNE>f rep dict dr nelson</DictatingPhyMNE> <CCListMNE>f rep ct leslie</ CCListMNE> <AdmittingPhyMNE>f pt admit dr nelson</AdmittingPhyMNE> <AttendingPhyMNE >f pt attend dr nelson</AttendingPhyMNE> <ConsultingPhyMNE>f pt consult dr nelson</ConsultingPhyMNE> <FamilyPhyMNE>f pt fam dr nelson</FamilyPhyMNE> <OtherPhyMNE>f pt other dr nelson</OtherPhyMNE> < PrimaryPhyMNE>f pt prim care dr nelson</PrimaryPhyMNE> <ReferringPhyMNE>f pt referring dr nelson</ReferringPhyMNE> Patient Name: JOHAN PANTOJA SR Unit Number: [id number] Dictated: 10/18/161804 Transcribed: 10/18/161804 PBS Printed Date/Time: [~ rep prt dt]/[~ rep prt tm] [~ rep ct labl] - [~ rep ct ivnm] [facility] [place] [address] Dictated: 10/18/161804 Transcribed: 10/18/161804 PBS Printed Date/Time: [~ rep prt dt]/[~ rep prt tm] [~ rep ct labl] - [~ rep ct ivnm] CHEST ONE VIEW PORTABLE CLINICAL HISTORY: 76 years-old Male presenting with Sepsis. TECHNIQUE: Portable upright AP view of the chest was obtained. COMPARISON: 05/17/2016. FINDINGS: Atherosclerosis of aortic arch. Mildly prominent cardiac silhouette. No focal lung opacity. No large effusion or pneumothorax. Multilevel degenerative changes of the thoracic spine. Upper abdomen within normal limits. IMPRESSION: 1. Cardiomegaly. No dianelys pulmonary edema. No convincing evidence of acute cardiopulmonary disease. Electronically signed by: Don Khoury M.D. 10/18/2016 6:06 PM Dictated Date/Time: 10/18/2016 6:05 PM The status of this report is Signed. Draft = Not yet reviewed or approved by Radiologist. Signed = Reviewed and approved by Radiologist. <AttendingPhy></AttendingPhy> <FamilyPhy>Miley Potts M.D.</FamilyPhy> < PrimaryPhy>Miley Potts M.D.</PrimaryPhy> <UnitNumber>[id number]</UnitNumber> < VisitNumber>[id number]</VisitNumber> <PatientName>JOHAN PANTOJA SR</ PatientName> <DateOfBirth>1940</DateOfBirth> <Location>C.EDB</Location> < ServiceDate>10/18/16</ServiceDate> <MNE>ESINDI</MNE> <OrderingPhy>Shaan Inman D.O.</OrderingPhy> <OrderingPhyMNE>f rep ord dr nelson</OrderingPhyMNE> <DictatingPhyMNE>f rep dict dr nelson</DictatingPhyMNE> <CCListMNE>f rep ct mne</ CCListMNE> <AdmittingPhyMNE>f pt admit dr nelson</AdmittingPhyMNE> <AttendingPhyMNE >f pt attend dr nelson</AttendingPhyMNE> <ConsultingPhyMNE>f pt consult dr nelson</ConsultingPhyMNE> <FamilyPhyMNE>f pt fam dr nelson</FamilyPhyMNE> <OtherPhyMNE>f pt other dr nelson</OtherPhyMNE> < PrimaryPhyMNE>f pt prim care dr nelson</PrimaryPhyMNE> <ReferringPhyMNE>f pt referring dr nelson</ReferringPhyMNE> Patient Name: JOHAN PANTOJA SR Unit Number: [id number] Dictated: 10/18/161832 Transcribed: 10/18/161832 PBS Printed Date/Time: [~ rep prt dt]/[~ rep prt tm] [~ rep ct labl] - [~ rep ct ivnm] [facility] [place] [address] Dictated: 10/18/161832 Transcribed: 10/18/161832 PBS Printed Date/Time: [~ rep prt dt]/[~ rep prt tm] [~ rep ct labl] - [~ rep ct ivnm] [~ rep ct add3]] ABD/PELVIS NO IV OR ORAL CONT CLINICAL HISTORY: 76 years-old Male presenting with altered MS, fever, . TECHNIQUE: Multidetector CT of the abdomen and pelvis was performed without the use of intravenous contrast. IV contrast: None. A dose lowering technique was used consistent with the principles of ALARA (as low as reasonably achievable). COMPARISON: 02/16/2015. CT DOSE (mGy.cm): The estimated cumulative dose is 1880.14 mGy.cm. FINDINGS: Access Consultant topogram: Unremarkable. Lung bases: Minimal dependent changes, likely atelectasis. Multichamber enlargement of the heart. Coronary artery calcification. No pericardial or pleural effusion. Liver: Normal morphology. Hepatic steatosis by liver density. Biliary: No gross biliary ductal dilatation allowing for noncontrast technique. Normal gallbladder. Pancreas: Mild parenchymal atrophy. Spleen: Enlarged measuring 13.6 cm in maximal sagittal dimension. Adrenal glands: Predominantly fat-containing nodule in the right adrenal gland measuring 12 mm, previously 10 mm. This is consistent with a myelolipoma. Left adrenal gland normal. Kidneys and ureters: No nephrolithiasis. No hydronephrosis. Normal ureters. Gastrointestinal tract: Few sigmoid diverticula. No bowel obstruction. Peritoneal cavity: No free fluid or intraperitoneal gas. Bladder: Decompressed with a Soriano catheter. Pelvic organs: Prostate and seminal vesicles normal. Vasculature: Atherosclerosis of the normal caliber abdominal aorta. Lymph nodes: No enlarged lymph nodes in the abdomen or pelvis. Abdominal wall: Fat-containing left inguinal hernia. Musculoskeletal: Degenerative changes of the spine. IMPRESSION: 1. No acute intra-abdominal pathology. 2. Hepatic steatosis. 3. Mild splenomegaly. 4. Limited diverticulosis. Electronically signed by: Don Khoury M.D. 10/18/2016 6:40 PM Dictated Date/Time: 10/18/2016 6:33 PM The status of this report is Signed. Draft = Not yet reviewed or approved by Radiologist. Signed = Reviewed and approved by Radiologist. <AttendingPhy></AttendingPhy> <FamilyPhy>Miley Potts M.D.</FamilyPhy> < PrimaryPhy>Miley Potts M.D.</PrimaryPhy> <UnitNumber>[id number]</UnitNumber> < VisitNumber>[id number]</VisitNumber> <PatientName>JOHAN PANTOJA SR</ PatientName> <DateOfBirth>1940</DateOfBirth> <Location>[facility]</Location> < ServiceDate>10/18/16</ServiceDate> <MNE>ESINDI</MNE> <OrderingPhy>Shaan Inman D.O.</OrderingPhy> <OrderingPhyMNE>f rep ord dr nelson</OrderingPhyMNE> <DictatingPhyMNE>f rep dict dr nelson</DictatingPhyMNE> <CCListMNE>f rep ct warde</ CCListMNE> <AdmittingPhyMNE>f pt admit dr nelson</AdmittingPhyMNE> <AttendingPhyMNE >f pt attend dr nelson</AttendingPhyMNE> <ConsultingPhyMNE>f pt consult dr nelson</ConsultingPhyMNE> <FamilyPhyMNE>f pt fam dr nelson</FamilyPhyMNE> <OtherPhyMNE>f pt other dr nelson</OtherPhyMNE> < PrimaryPhyMNE>f pt prim care dr nelson</PrimaryPhyMNE> <ReferringPhyMNE>f pt referring dr nelson</ReferringPhyMNE> EKG EKG shows sinus tachycardia at 112 bpm, left axis deviation, left bundle branch block, no acute ST-T changes. Impression Assessment and Plan 1. CAD/hypertension/elevated troponin--The patient will be admitted to telemetry for serial cardiac enzymes, cardiac rhythm monitoring and a 2-D echocardiogram with Dopplers. Continue aspirin 81 mg by mouth every afternoon, losartan 50 mg by mouth daily, and metoprolol succinate 25 mg by mouth at bedtime. 2. UTI/SIRS--he has a history of the resistant Escherichia coli organisms in the past. We'll continue the cefepime started in the ED at 2 g IV every 8 hours , and add vancomycin IV per pharmacy kinetic monitoring. Hold Lasix 20 mg by mouth twice a day, and place on normal saline at 75 ML's per hour. 3. Hypothyroidism--continue levothyroxine sodium at 25 g by mouth daily. 4. Hyper triglyceridemia--continue gemfibrozil at 600 mg by mouth every morning. 5. GERD--continue pantoprazole 40 mg by mouth every morning. 6. Depression--continue sertraline 200 mg by mouth every morning. 7. Hyperglycemia--blood sugar on entry is 157. Check a hemoglobin A1c. Place on Accu-Cheks before meals and at bedtime with NovoLog coverage per scale. Level of Care Telemetry Advanced Directives Existing Advance Directive: Yes Existing Living Will: Yes Existing Power of Sous Chef: Yes Resuscitation Status DO NOT RESUSCITATE VTE Prophylaxis VTE Risk Assessment Done? Y/N: Yes Risk Level: Moderate Given or contraindicated: SCD's
[2016-10-19] VITALS (7 sets, daily range): BP systolic 112–137; BP diastolic 52–71; PULSE 76–89; TEMP 36.6–39.4; O2SAT 92–99
[2016-10-19] MEDS: METOPROLOL SUCC 25MG EXT REL TAB PO SCH ×2 (00:21→20:01)
[2016-10-19] MEDS: ASPIRIN 81 MG ECTAB PO SCH ×2 (00:21→20:01)
[2016-10-19] MEDS: LEVOTHYROXINE 25 MCG TAB PO SCH (06:39)
[2016-10-19 06:42] LABS: ESTIMATED AVERAGE GLUCOSE 120 mg/dl; HA1C FLAG Normal (Normal)
--- NOTE | 2016-10-19 07:54 | Clinical Documentation Query ---
CLINICAL DOCUMENTATION QUERY 76 year old male who presents to the Emergency Room for constant altered mental status Query #1/3 In your clinical opinion is this patient being managed for: ( x ) Sepsis in setting of UTI treated with IV boluses and multiple IV antibiotics. ( ) Other explanation of clinical findings (Please Explain) ( ) Unable to determine (Please Define) ( ) Need to Discuss ( ) Not Agree The medical record reflects the following clinical findings, treatment, and risk factors. Clinical Indicators: Fever 40.0, tachycardia 110, tachypnea 26, +lactic acid 2.09, Creatinine 1.70, ESR 51, CRP 14.90, and UA +bacteria and leukocyte esterase. Treatment: IV NSS boluses, IV Cefepime, IV Vancomycin, Risk Factors: Age, UTI, ICD-10-CM does not have a code for SIRS due to infectious process. Query #2/3 In your clinical opinion is this patient being managed for: ( x ) Metabolic encephalopathy evidenced by altered mental status in setting of sepsis, MONIQUE and UTI. ( ) Other explanation of clinical findings (Please Explain) ( ) Unable to determine (Please Define) ( ) Need to Discuss ( ) Not Agree The medical record reflects the following clinical findings, treatment, and risk factors. Clinical Indicators: AMS, Fever 40.0, tachycardia 110, tachypnea 26, +lactic acid 2.09, Creatinine 1.70, ESR 51, CRP 14.90, and UA +bacteria and leukocyte esterase. Treatment: IV NSS boluses, IV Cefepime, IV Vancomycin, Risk Factors: Age, UTI, Query #3/3 In your clinical opinion is this patient being managed for: (x ) MONIQUE in setting of UTI and Sepsis treated with IVF's and IV antibiotics ( ) Other explanation of clinical findings (Please Explain) ( ) Unable to determine (Please Define) ( ) Need to Discuss ( ) Not Agree The medical record reflects the following clinical findings, treatment, and risk factors. Clinical Indicators: Baseline creatinine from April of 2016 appears to about 1.2. with a GFR of 58. On presentation this admission BUN 31, Creatinine 1.70, & GFR 38.1. Treatment: IV NSS boluses, IV Cefepime, IV Vancomycin, Risk Factors: Age, Sepsis, UTI Please clarify and document your clinical opinion in the progress notes and discharge summary. Terms such as "probable", "suspected", "likely", "questionable", "possible", or "still to be ruled out" are acceptable. IF IN AGREEMENT, YOU MUST DOCUMENT ABOVE DIAGNOSTIC STATEMENT IN DAILY PROGRESS NOTES AND DISCHARGE SUMMARY. This document is not part of the patient's record. Thank You, Ernie Anderson, MALLIKA [phone]
[2016-10-19] MEDS: GEMFIBROZIL 600 MG TAB PO SCH (08:20)
[2016-10-19] MEDS: CEROVITE ADV FORMULA TAB PO SCH (08:20)
[2016-10-19] MEDS: PANTOprazole SOD 40 MG TAB PO SCH (08:20)
[2016-10-19] MEDS: SERTRALINE HCL 100 MG TAB PO SCH (08:20)
[2016-10-19] MEDS: ACETAMINOPHEN 325 MG TAB PO PRN ×3 (09:12→23:19)
--- NOTE | 2016-10-19 11:21 | Pharmacy Progress Note ---
Pharmacy Antibiotic Consult Date of Service: Oct 19, 2016. Pharmacy Dosing Scope Pharmacy is consulted to initiate vancomycin and cefepime IV dosing therapy, order appropriate labs and adjust drug dose/frequency. Subjective The patient is a 76 year old male admitted on Oct 18, 2016 at 19:58. Objective Height (Feet): 5 Height (Inches): 10.00 Weight (Kilograms): 91.900 Lab Results (24hrs): Test 10/18/16 17:26 10/18/16 17:30 10/18/16 17:37 10/18/16 17:38 White Blood Count 7.39 K/uL (4.8-10.8) Red Blood Count 3.38 M/uL (4.7-6.1) Hemoglobin 10.1 g/dL (14.0-18.0) Hematocrit 29.8 % (42-52) Mean Corpuscular Volume 88.2 fL (80-100) Mean Corpuscular Hemoglobin 29.9 pg (25-34) Mean Corpuscular Hemoglobin Concent 33.9 g/dl (32-36) Platelet Count 205 K/uL (130-400) Mean Platelet Volume 9.3 fL (7.4-10.4) Neutrophils (%) (Auto) 93.0 % Lymphocytes (%) (Auto) 3.7 % Monocytes (%) (Auto) 2.2 % Eosinophils (%) (Auto) 0.7 % Basophils (%) (Auto) 0.1 % Neutrophils # (Auto) 6.88 K/uL (1.4-6.5) Lymphocytes # (Auto) 0.27 K/uL (1.2-3.4) Monocytes # (Auto) 0.16 K/uL (0.11-0.59) Eosinophils # (Auto) 0.05 K/uL (0-0.5) Basophils # (Auto) 0.01 K/uL (0-0.2) RDW Standard Deviation 48.1 fL (36.4-46.3) RDW Coefficient of Variation 14.8 % (11.5-14.5) Immature Granulocyte % (Auto) 0.3 % Immature Granulocyte # (Auto) 0.02 K/uL (0.00-0.02) Erythrocyte Sedimentation Rate 51 mm/hr (0-14) Prothrombin Time 12.4 SECONDS (9.0-12.0) Prothromb Time International Ratio 1.2 (0.9-1.1) Activated Partial Thromboplast Time 26.4 SECONDS (21.0-31.0) Partial Thromboplastin Ratio 1.0 Sodium Level 138 mmol/L (136-145) Potassium Level 4.7 mmol/L (3.5-5.1) Chloride Level 106 mmol/L (98-107) Carbon Dioxide Level 21 mmol/L (21-32) Anion Gap 11.0 mmol/L (3-11) Blood Urea Nitrogen 31 mg/dl (7-18) Creatinine 1.70 mg/dl (0.60-1.40) Estimated GFR () 44.1 Estimated GFR (Non- 38.1 BUN/Creatinine Ratio 18.4 (10-20) Random Glucose 157 mg/dl (70-99) Calcium Level 9.1 mg/dl (8.5-10.1) Phosphorus Level 2.8 mg/dl (2.5-4.9) Magnesium Level 2.0 mg/dl (1.8-2.4) Total Bilirubin 0.5 mg/dl (0.2-1) Aspartate Amino Transf (AST/SGOT) 25 U/L (15-37) Alanine Aminotransferase (ALT/SGPT) 24 U/L (12-78) Alkaline Phosphatase 75 U/L (45-117) Total Creatine Kinase 35 U/L (39-308) Creatine Kinase MB < 0.5 ng/ml (0.5-3.6) Creatine Kinase MB Ratio (0-3.0) Troponin I 0.018 ng/ml (0-0.045) C-Reactive Protein 14.90 mg/dl (0-0.29) Pro-B-Type Natriuretic Peptide 3372 pg/ml (0-1800) Total Protein 7.1 gm/dl (6.4-8.2) Albumin 3.0 gm/dl (3.4-5.0) Globulin 4.1 gm/dl (2.5-4.0) Albumin/Globulin Ratio 0.7 (0.9-2) Lipase 196 U/L (73-393) Urine Color YELLOW Urine Appearance CLOUDY (CLEAR) Urine pH 5.0 (4.5-7.5) Urine Specific [place] 1.014 (1.000-1.030) Urine Protein 1+ (NEG) Urine Glucose (UA) NEG (NEG) Urine Ketones NEG (NEG) Urine Occult Blood 3+ (NEG) Urine Nitrite NEG (NEG) Urine Bilirubin NEG (NEG) Urine Urobilinogen NEG (NEG) Urine Leukocyte Esterase MODERATE (NEG) Urine WBC (Auto) >30 /hpf (0-5) Urine RBC (Auto) 10-30 /hpf (0-4) Urine Hyaline Casts (Auto) /lpf (0-5) Urine Epithelial Cells (Auto) 10-20 /lpf (0-5) Urine Bacteria (Auto) 2+ (NEG) Urine Crystals AMORPHOUS SEDIMENT (NONE Urine Pathogenic Casts /lpf (0) Estimated Average Glucose 120 mg/dl Hemoglobin A1c 5.8 % (4.5-5.6) Bedside Lactic Acid Venous 2.09 mmol/L (0.90-1.70) Test 10/18/16 18:01 10/18/16 21:41 10/19/16 06:54 Venous Blood pH 7.46 (7.36-7.41) Venous Blood Partial Pressure CO2 31 mmHg (38.0-50.0) Venous Blood Partial Pressure O2 54 mmHg Venous Blood HCO3 22 mmol/L Venous Blood Oxygen Saturation 88.2 % Venous Blood Base Excess -1.7 mmol/L Bedside Glucose 156 mg/dl (70-99) 106 mg/dl (70-99) Micro Results: Item Value Date Time Blood Culture Received 10/18/16 1801 Blood Pending Urine Culture Received 10/18/16 1730 Urine,Catheterized Pending Blood Culture Received 10/18/16 1726 Blood Pending Assessment & Plan Patient started on vancomycin and cefepime for possible UTI. Of note, continues to spike fevers since admission however no leukocytosis present. BC x 2 are pending and urine culture is also pending at this time. Vancomycin: * Received LD of vancomycin 2500 mg (~25 mg/kg) x 1 last evening * Will start MD of vancomycin 1250 mg (~14 mg/kg) iv q 18 hrs to achieve an estimated trough ~15-20 mcg/ml (goal for UTI/sepsis) * Baseline Scr appears to be closer to 1.3 mg/dL * Estimated kinetics: t1/2~17 hrs, ke~0.04 hr-1, CrCl ~44 ml/min * Will plan to obtain a trough prior to the 0400 dose on 10/21 to ensure therapeutic Cefepime: * Received cefepime 2 gm x 1, then started on 1 gm iv q 24 hrs (target dose 1 gm iv q 12 hrs; adjusted for CrCl 30-60 ml/min) Pharmacy will continue to follow and will adjust dose/frequency as necessary. Thank you
[2016-10-19] MEDS: SODIUM CHLORIDE 0.9% 1000ML 1,000 ML IV SCH (14:09)
[2016-10-19] MEDS ORDERED: VANCOMYCIN INJ 1,250 MG in SODIUM CHLORIDE 0.9% 250ML 250 ML IV SCH (16:00)
[2016-10-19] MEDS ORDERED: CEFEPIME IV 1,000 MG in DEXTROSE 5% 100ML 100 ML IV SCH (18:00)
--- NOTE | 2016-10-19 19:30 | Progress Note ---
Subjective Date of Service: Oct 19, 2016. Subjective this pt is feeling better but remains a bit "off" in his words. no focal complaints with the except for some dysuria Problem List Medical Problems: (1) Abdominal pain Status: Acute (2) Altered mental status Status: Acute (3) Anemia Status: Acute (4) Elevated troponin Status: Acute (5) Fever Status: Acute (6) Fever Status: Acute (7) Pulmonary edema Status: Acute (8) Seizure Status: Acute (9) Sepsis Status: Acute (10) Sepsis Status: Acute (11) Substernal chest pain Status: Acute (12) Temporal headache Status: Acute Review of Systems Constitutional: No fever, No chills, No weakness Respiratory: No cough, No shortness of breath, No dyspnea on exertion Cardiac: No chest pain, No orthopnea, No edema Abdomen: No pain, No nausea, No vomiting, No diarrhea Male : + dysuria, + urinary frequency, No incontinence Psychiatric: No depression symptoms, No anhedonism Objective Vital Signs Date Time Temp Pulse Resp B/P (MAP) Pulse Ox O2 Delivery O2 Flow Rate FiO2 10/19/16 07:16 38.7 77 20 136/66 (89) 99 Nasal Cannula 2.0 10/19/16 04:12 36.6 78 18 112/52 (72) 96 Nasal Cannula 2.0 10/19/16 04:00 Nasal Cannula 2.0 10/19/16 00:00 36.7 79 18 114/60 (78) 97 Nasal Cannula 2.0 10/18/16 23:59 Nasal Cannula 2.0 10/18/16 22:11 36.9 83 22 111/62 98 Nasal Cannula 2.0 10/18/16 21:56 36.9 10/18/16 21:41 36.9 83 22 111/62 (78) 98 Nasal Cannula 2.0 10/18/16 21:18 36.6 92 20 113/59 97 10/18/16 21:01 36.6 113/59 10/18/16 20:38 92 20 97 10/18/16 20:31 120/59 10/18/16 20:08 87 23 98 10/18/16 20:01 101/54 10/18/16 19:38 89 26 97 10/18/16 19:33 38.7 89 24 111/54 98 10/18/16 18:10 107 7/26/17 18:06 108 26 95 10/18/16 18:01 133/67 10/18/16 17:49 89 Room Air 10/18/16 17:49 39.9 10/18/16 17:48 106/50 10/18/16 17:48 93 Nasal Cannula 2.0 10/18/16 17:45 109 23 89 10/18/16 17:22 91 Room Air 10/18/16 17:22 40.0 110 12 163/63 91 Room Air 10/18/16 17:20 163/63 Physical Exam General Appearance: WD/WN, + mild distress Neck: supple, no JVD Respiratory/Chest: chest non-tender, lungs clear, normal breath sounds Cardiovascular: regular rate, rhythm, no murmur Abdomen: normal bowel sounds, non tender, soft Neurologic/Psychiatric: alert, + disoriented (oreinted x2) Laboratory Results Last 24 Hours Test 10/18/16 17:26 10/18/16 17:30 10/18/16 17:37 10/18/16 17:38 White Blood Count 7.39 K/uL Red Blood Count 3.38 M/uL Hemoglobin 10.1 g/dL Hematocrit 29.8 % Mean Corpuscular Volume 88.2 fL Mean Corpuscular Hemoglobin 29.9 pg Mean Corpuscular Hemoglobin Concent 33.9 g/dl Platelet Count 205 K/uL Mean Platelet Volume 9.3 fL Neutrophils (%) (Auto) 93.0 % Lymphocytes (%) (Auto) 3.7 % Monocytes (%) (Auto) 2.2 % Eosinophils (%) (Auto) 0.7 % Basophils (%) (Auto) 0.1 % Neutrophils # (Auto) 6.88 K/uL Lymphocytes # (Auto) 0.27 K/uL Monocytes # (Auto) 0.16 K/uL Eosinophils # (Auto) 0.05 K/uL Basophils # (Auto) 0.01 K/uL RDW Standard Deviation 48.1 fL RDW Coefficient of Variation 14.8 % Immature Granulocyte % (Auto) 0.3 % Immature Granulocyte # (Auto) 0.02 K/uL Erythrocyte Sedimentation Rate 51 mm/hr Prothrombin Time 12.4 SECONDS Prothromb Time International Ratio 1.2 Activated Partial Thromboplast Time 26.4 SECONDS Partial Thromboplastin Ratio 1.0 Sodium Level 138 mmol/L Potassium Level 4.7 mmol/L Chloride Level 106 mmol/L Carbon Dioxide Level 21 mmol/L Anion Gap 11.0 mmol/L Blood Urea Nitrogen 31 mg/dl Creatinine 1.70 mg/dl Estimated GFR () 44.1 Estimated GFR (Non- 38.1 BUN/Creatinine Ratio 18.4 Random Glucose 157 mg/dl Calcium Level 9.1 mg/dl Phosphorus Level 2.8 mg/dl Magnesium Level 2.0 mg/dl Total Bilirubin 0.5 mg/dl Aspartate Amino Transf (AST/SGOT) 25 U/L Alanine Aminotransferase (ALT/SGPT) 24 U/L Alkaline Phosphatase 75 U/L Total Creatine Kinase 35 U/L Creatine Kinase MB < 0.5 ng/ml Creatine Kinase MB Ratio Troponin I 0.018 ng/ml C-Reactive Protein 14.90 mg/dl Pro-B-Type Natriuretic Peptide 3372 pg/ml Total Protein 7.1 gm/dl Albumin 3.0 gm/dl Globulin 4.1 gm/dl Albumin/Globulin Ratio 0.7 Lipase 196 U/L Urine Color YELLOW Urine Appearance CLOUDY Urine pH 5.0 Urine Specific [place] 1.014 Urine Protein 1+ Urine Glucose (UA) NEG Urine Ketones NEG Urine Occult Blood 3+ Urine Nitrite NEG Urine Bilirubin NEG Urine Urobilinogen NEG Urine Leukocyte Esterase MODERATE Urine WBC (Auto) >30 /hpf Urine RBC (Auto) 10-30 /hpf Urine Hyaline Casts (Auto) /lpf Urine Epithelial Cells (Auto) 10-20 /lpf Urine Bacteria (Auto) 2+ Urine Crystals AMORPHOUS SEDIMENT Urine Pathogenic Casts /lpf Estimated Average Glucose 120 mg/dl Hemoglobin A1c 5.8 % Bedside Lactic Acid Venous 2.09 mmol/L Test 10/18/16 18:01 10/18/16 21:41 10/19/16 06:54 Venous Blood pH 7.46 Venous Blood Partial Pressure CO2 31 mmHg Venous Blood Partial Pressure O2 54 mmHg Venous Blood HCO3 22 mmol/L Venous Blood Oxygen Saturation 88.2 % Venous Blood Base Excess -1.7 mmol/L Bedside Glucose 156 mg/dl 106 mg/dl Assessment and Plan 76 M metabolic encephalopahty from uti poa CAD/hypertension/elevated troponin--likely supply demand mismatch, from physiologic stressor of infection Continue aspirin 81 mg , losartan 50 mg by mouth daily, and metoprolol succinate 25 mg UTI/SIRS--metabolic encephalopathy he has a history of the resistant Escherichia coli organisms in the past. cefepime 2 g IV every 8 hours, and add vancomycin IV. Hypothyroidism-- levothyroxine sodium at 25 g by mouth daily. GERD-- pantoprazole 40 mg by mouth every morning. Depression-sertraline 200 mg by mouth every morning. Hyperglycemia--blood sugar on entry is 157. normal hemoglobin A1c. Place on Accu-Cheks before meals and at bedtime with NovoLog coverage per scale.
[2016-10-20] VITALS (11 sets, daily range): BP systolic 127–169; BP diastolic 65–75; PULSE 76–99; TEMP 36.8–39.1; O2SAT 93–99
[2016-10-20] MEDS: SODIUM CHLORIDE 0.9% 1000ML 1,000 ML IV SCH (06:00)
[2016-10-20] MEDS: LEVOTHYROXINE 25 MCG TAB PO SCH (06:00)
[2016-10-20 07:42] LABS: CREATININE 1.5 mg/dl (0.60-1.40)
[2016-10-20] MEDS: GEMFIBROZIL 600 MG TAB PO SCH (08:31)
[2016-10-20] MEDS: CEROVITE ADV FORMULA TAB PO SCH (08:32)
[2016-10-20] MEDS: ACETAMINOPHEN 325 MG TAB PO PRN ×2 (08:32→23:34)
[2016-10-20] MEDS: SERTRALINE HCL 100 MG TAB PO SCH (08:32)
[2016-10-20] MEDS: PANTOprazole SOD 40 MG TAB PO SCH (08:32)
[2016-10-20] MEDS: HEPARIN SOD 5000 UNIT/0.5 ML CARP SQ SCH ×2 (10:55→20:31)
[2016-10-20] MEDS: METRONIDAZOLE / NSS 500 MG in PREMIXED NSS 100 ML IV SCH ×2 (11:00→20:25)
[2016-10-20] MEDS ORDERED: ONDANSETRON INJ 2 MG/ML 2 ML VIAL IV PRN (12:30)
[2016-10-20] MEDS: CIPROFLOXACIN / D5W 400 MG in PREMIXED IN D5W 200 ML IV SCH ×2 (12:36→23:27)
--- NOTE | 2016-10-20 14:54 | DIAGNOSTIC IMAGING REPORT ---
ABD/PELVIS ORAL CONT ONLY CLINICAL HISTORY: 76 years-old Male presenting with eval for intra abdominal source for sepsis. TECHNIQUE: Multidetector CT of the abdomen and pelvis was performed without the use of intravenous contrast. IV contrast: None. A dose lowering technique was used consistent with the principles of ALARA (as low as reasonably achievable). COMPARISON: 10/18/2016. CT DOSE (mGy.cm): The estimated cumulative dose is 998.81 mGycm. FINDINGS: Human Resources Compliance Manager topogram: Unremarkable. Lung bases: Interval development of small right and trace left pleural effusion with associated dependent consolidation, right greater than left, likely passive atelectasis. Multichamber enlargement of the heart. The intraventricular blood pool is less dense than the adjacent myocardium indicative of anemia. Coronary artery calcification. Liver: Normal morphology. Borderline hepatic steatosis. Biliary: No gross evidence of biliary ductal dilatation. Normal gallbladder. Pancreas: Mild parenchymal atrophy. Spleen: Top normal in size measuring 13 cm. Adrenal glands: Normal. Kidneys and ureters: Nonspecific perinephric fat stranding. No nephrolithiasis. No hydronephrosis. Gastrointestinal tract: Limited sigmoid diverticulosis. Normal appendix. No bowel obstruction. Peritoneal cavity: No free fluid or intraperitoneal gas. Bladder: Decompressed with a Soriano catheter. Gas in the urinary bladder likely relates to the presence of the Soriano catheter. Pelvic organs: Prostate and seminal vesicles normal. Vasculature: Atherosclerosis of the normal caliber abdominal aorta. Lymph nodes: No enlarged lymph nodes in the abdomen or pelvis. Abdominal wall: Left fat-containing inguinal hernia. Musculoskeletal: Degenerative changes of the spine. IMPRESSION: 1. Interval development of small right and trace left pleural effusions likely accompanied by passive atelectasis. 2. No convincing evidence of intra-abdominal pathology. 3. Borderline hepatic steatosis. 4. Borderline hepatomegaly. 5. Limited diverticulosis. Electronically signed by: Don Khoury M.D. 10/20/2016 2:53 PM Dictated Date/Time: 10/20/2016 2:46 PM
--- NOTE | 2016-10-20 18:21 | Progress Note ---
Subjective Date of Service: Oct 20, 2016. Subjective this pt was markedly febrile, almost cannot believe the urine culture that is negative, will change antibiotic and have repeat CT with contrast. Pt does not feel that well Problem List Medical Problems: (1) Abdominal pain Status: Acute (2) Altered mental status Status: Acute (3) Anemia Status: Acute (4) Elevated troponin Status: Acute (5) Fever Status: Acute (6) Fever Status: Acute (7) Pulmonary edema Status: Acute (8) Seizure Status: Acute (9) Sepsis Status: Acute (10) Sepsis Status: Acute (11) Substernal chest pain Status: Acute (12) Temporal headache Status: Acute Review of Systems Constitutional: + weakness, + fatigue, No fever, No chills Respiratory: No cough, No sputum, No wheezing Cardiac: No chest pain, No PND, No edema Abdomen: + pain, No nausea, No vomiting, No diarrhea Musculoskeletal: No joint pain, No muscle pain, No swelling Psychiatric: No depression symptoms, No anhedonism Objective Vital Signs Date Time Temp Pulse Resp B/P (MAP) Pulse Ox O2 Delivery O2 Flow Rate FiO2 10/20/16 04:00 Nasal Cannula 2.0 10/20/16 03:17 36.8 76 19 135/75 (95) 98 Nasal Cannula 2.0 10/20/16 00:34 37.5 10/20/16 00:00 Nasal Cannula 2.0 10/19/16 23:29 39.4 89 22 137/68 (91) 97 Nasal Cannula 2.0 10/19/16 20:00 Nasal Cannula 2.0 10/19/16 19:35 37.5 78 22 116/63 (80) 97 Nasal Cannula 2.0 10/19/16 16:00 Nasal Cannula 2.0 10/19/16 15:29 38.8 85 20 137/70 (92) 97 Room Air 10/19/16 12:04 37.1 76 22 124/71 (88) 92 Nasal Cannula 10/19/16 12:00 Nasal Cannula 2.0 Physical Exam General Appearance: WD/WN, + mild distress, + obese Neck: supple, no JVD Respiratory/Chest: chest non-tender, lungs clear, normal breath sounds Cardiovascular: regular rate, rhythm, no murmur Abdomen: non tender (suprapubic), soft Extremities: no pedal edema, no calf tenderness Neurologic/Psychiatric: alert, oriented x 3 Laboratory Results Last 24 Hours Test 10/19/16 11:37 10/19/16 16:10 10/19/16 20:24 10/20/16 06:29 Bedside Glucose 122 mg/dl 121 mg/dl 124 mg/dl 115 mg/dl Test 10/20/16 06:44 Creatinine 1.50 mg/dl Est Creatinine Clear Calc Drug Dose 47.0 ml/min Estimated GFR () 51.3 Estimated GFR (Non- 44.3 Assessment and Plan 76 M metabolic encephalopahty from gram negative sepsis on admission, unclear source, consider bowel as urine culture negative, CT with contrast does not support diverticulitis or GB disease, some perinephric stranding suggesting still could be pyelo CAD/hypertension/elevated troponin--likely supply demand mismatch, from physiologic stressor of infection Continue aspirin 81 mg , losartan 50 mg by mouth daily, and metoprolol succinate 25 mg UTI/SIRS--metabolic encephalopathy did have fever, blood culture with gram negative, change to cipro/ flagyl Hypothyroidism-stable levothyroxine sodium at 25 g by mouth daily. GERD--no symptoms on pantoprazole 40 mg Depression-seems stable sertraline 200 mg Hyperglycemia--blood sugar on entry is 157. normal hemoglobin A1c. will follow diet restriction heparin for DVT prevention
[2016-10-20] MEDS: METOPROLOL SUCC 25MG EXT REL TAB PO SCH (20:30)
[2016-10-20] MEDS: ASPIRIN 81 MG ECTAB PO SCH (20:30)
[2016-10-20] MEDS ORDERED: NURSING VERBAL MED ORDER ONE (23:45)
[2016-10-21] VITALS (13 sets, daily range): BP systolic 130–162; BP diastolic 70–79; PULSE 83–94; TEMP 37–37.9; O2SAT 93–99
[2016-10-21] MEDS: METRONIDAZOLE / NSS 500 MG in PREMIXED NSS 100 ML IV SCH (02:34)
[2016-10-21] MEDS ORDERED: VANCOMYCIN TROUGH ONE (03:30)
[2016-10-21] MEDS: LEVOTHYROXINE 25 MCG TAB PO SCH (05:41)
[2016-10-21 06:30] LABS: HEMATOCRIT 27.3 % (42-52); MEAN CELL VOLUME 87.5 fL (80-100); MEAN CORPUSCULAR HEMOGLOBIN 29.5 pg (25-34); MEAN CORPUSCULAR HGB CONC 33.7 g/dl (32-36); MEAN PLATELET VOLUME 9.7 fL (7.4-10.4); PLATELET COUNT 188 K/uL (130-400); RED BLOOD COUNT 3.12 M/uL (4.7-6.1); WHITE BLOOD COUNT 7.21 K/uL (4.8-10.8)
[2016-10-21 07:11] LABS: CREATININE 1.4 mg/dl (0.60-1.40)
[2016-10-21 07:12] LABS: BUN/CREATININE RATIO 19.3 (10-20); POTASSIUM 4.1 mmol/L (3.5-5.1)
[2016-10-21] MEDS: IMIPENEM-CILASTATIN 500 MG in DEXTROSE 5% 100ML 100 ML IV SCH ×3 (08:11→20:51)
[2016-10-21] MEDS: GEMFIBROZIL 600 MG TAB PO SCH (08:11)
[2016-10-21] MEDS: CEROVITE ADV FORMULA TAB PO SCH (08:13)
[2016-10-21] MEDS: PANTOprazole SOD 40 MG TAB PO SCH (08:13)
[2016-10-21] MEDS: SERTRALINE HCL 100 MG TAB PO SCH (08:13)
[2016-10-21] MEDS: HEPARIN SOD 5000 UNIT/0.5 ML CARP SQ SCH ×2 (08:16→20:54)
--- NOTE | 2016-10-21 12:18 | DIAGNOSTIC IMAGING REPORT ---
CHEST ONE VIEW PORTABLE CLINICAL HISTORY: Evaluate left lower lobe. COMPARISON STUDY: Chest radiograph October 18, 2016. FINDINGS: Exam is compromised by motion artifact. There is no pneumothorax or pleural effusion. Cardiomegaly is unchanged. There is been interval development of mild bilateral opacities and possible pulmonary vascular congestion IMPRESSION: 1. Interval development of apparent bilateral airspace opacities which could reflect pulmonary edema or an infectious process. 2. Suspected pulmonary vascular congestion. Electronically signed by: Rolando Vazquez M.D. 10/21/2016 12:17 PM Dictated Date/Time: 10/21/2016 12:15 PM
[2016-10-21] MEDS ORDERED: FUROSEMIDE 40 MG/4 ML VIAL IV STA (12:29)
[2016-10-21] MEDS ORDERED: AZITHROMYCIN 250 MG TAB PO ONE (12:45)
--- NOTE | 2016-10-21 16:35 | Progress Note ---
Subjective Date of Service: Oct 21, 2016. Subjective additional fever and confusion overnight, pt is c/o feeling sob, cxr with mild failure, no other focal exam findings Problem List Medical Problems: (1) Abdominal pain Status: Acute (2) Altered mental status Status: Acute (3) Anemia Status: Acute (4) Elevated troponin Status: Acute (5) Fever Status: Acute (6) Fever Status: Acute (7) Pulmonary edema Status: Acute (8) Seizure Status: Acute (9) Sepsis Status: Acute (10) Sepsis Status: Acute (11) Substernal chest pain Status: Acute (12) Temporal headache Status: Acute Review of Systems Constitutional: + weakness, + fatigue, No fever, No chills Respiratory: + shortness of breath, + dyspnea on exertion, No cough, No sputum Cardiac: No chest pain, No edema Abdomen: No pain, No vomiting, No diarrhea Male : No dysuria, No urinary frequency, No incontinence, No nocturia more than once/night Psychiatric: No depression symptoms, No anhedonism Objective Vital Signs Date Time Temp Pulse Resp B/P (MAP) Pulse Ox O2 Delivery O2 Flow Rate FiO2 10/21/16 15:29 37.2 90 21 130/73 (92) 97 Humidified Air 2.5 10/21/16 11:16 37.0 88 22 150/75 (100) 95 2.0 10/21/16 07:59 37.0 94 18 162/78 (106) 94 2.0 10/21/16 04:14 37.5 85 20 136/70 (92) 95 Nasal Cannula 2.0 10/21/16 04:03 99 Nasal Cannula 2.0 10/21/16 00:12 99 Nasal Cannula 2.0 10/21/16 00:10 83 20 93 Nasal Cannula 2.0 10/20/16 23:41 39.1 99 22 155/71 (99) 93 Nasal Cannula 2.0 10/20/16 20:00 99 Nasal Cannula 2.0 10/20/16 19:21 37.5 87 22 134/65 (88) 95 Room Air Physical Exam General Appearance: WD/WN, + mild distress Eyes: PERRL, EOMI ENT: hearing grossly normal, pharynx normal Neck: supple, no JVD Respiratory/Chest: chest non-tender, no respiratory distress, + rales (left base that clear) Cardiovascular: regular rate, rhythm, no murmur Abdomen: normal bowel sounds, non tender, no organomegaly Extremities: no pedal edema, no calf tenderness Neurologic/Psychiatric: alert, oriented x 3 Skin: normal color, warm/dry, no rash Laboratory Results Last 24 Hours Test 10/20/16 20:07 10/21/16 05:59 10/21/16 06:45 10/21/16 11:37 Bedside Glucose 155 mg/dl 127 mg/dl 143 mg/dl White Blood Count 7.21 K/uL Red Blood Count 3.12 M/uL Hemoglobin 9.2 g/dL Hematocrit 27.3 % Mean Corpuscular Volume 87.5 fL Mean Corpuscular Hemoglobin 29.5 pg Mean Corpuscular Hemoglobin Concent 33.7 g/dl RDW Standard Deviation 47.1 fL RDW Coefficient of Variation 14.7 % Platelet Count 188 K/uL Mean Platelet Volume 9.7 fL Sodium Level 140 mmol/L Potassium Level 4.1 mmol/L Chloride Level 111 mmol/L Carbon Dioxide Level 20 mmol/L Anion Gap 9.0 mmol/L Blood Urea Nitrogen 27 mg/dl Creatinine 1.40 mg/dl Est Creatinine Clear Calc Drug Dose 50.7 ml/min Estimated GFR () 55.8 Estimated GFR (Non- 48.1 BUN/Creatinine Ratio 19.3 Random Glucose 115 mg/dl Calcium Level 9.0 mg/dl Assessment and Plan 76 M metabolic encephalopahty from gram negative sepsis on admission, unclear source, CT with contrast does not support diverticulitis or GB disease, some perinephric stranding suggesting still could be pyelo, cr 10/21 suggest some mild fluid overload, no defined infiltrates CAD/hypertension/elevated troponin--likely supply demand mismatch, from physiologic stressor of infection Continue aspirin 81 mg , losartan 50 mg by mouth daily, and metoprolol succinate 25 mg, did have some mild HF seen on CXR will have echo, one dose of lasix UTI/SIRS--metabolic encephalopathy did haverecurrent fever, blood culture with gram negative,history of drug resistent ecoli in distant past, but that should have been sensitive to cefepime, will change to imipenim, and add azithro for atypical coverage in case mild HF on CXR is actually atypical Hypothyroidism-remains stable levothyroxine sodium at 25 g by mouth daily. GERD--uses pantoprazole 40 mg Depression-sertraline 200 mg Hyperglycemia--blood sugar on entry is 157. normal hemoglobin A1c. contrilled with diet restriction heparin for DVT prevention
[2016-10-21] MEDS: ASPIRIN 81 MG ECTAB PO SCH (20:52)
[2016-10-21] MEDS: METOPROLOL SUCC 25MG EXT REL TAB PO SCH (20:52)
[2016-10-22] VITALS (12 sets, daily range): BP systolic 117–160; BP diastolic 66–76; PULSE 80–86; TEMP 36.6–37.3; O2SAT 92–99
[2016-10-22] MEDS: IMIPENEM-CILASTATIN 500 MG in DEXTROSE 5% 100ML 100 ML IV SCH ×4 (01:08→20:50)
[2016-10-22] MEDS: ACETAMINOPHEN 325 MG TAB PO PRN (01:12)
[2016-10-22] MEDS: LEVOTHYROXINE 25 MCG TAB PO SCH (05:18)
[2016-10-22 07:21] LABS: CREATININE 1.3 mg/dl (0.60-1.40)
[2016-10-22] MEDS: GEMFIBROZIL 600 MG TAB PO SCH (08:02)
[2016-10-22] MEDS: CEROVITE ADV FORMULA TAB PO SCH (08:02)
[2016-10-22] MEDS: PANTOprazole SOD 40 MG TAB PO SCH (08:02)
[2016-10-22] MEDS: AZITHROMYCIN 250 MG TAB PO SCH (08:03)
[2016-10-22] MEDS: SERTRALINE HCL 100 MG TAB PO SCH (08:03)
[2016-10-22] MEDS: HEPARIN SOD 5000 UNIT/0.5 ML CARP SQ SCH ×2 (10:12→20:53)
[2016-10-22] MEDS ORDERED: PERFLUTREN LIPID MICROSPHERE (DEFINITY) IV ONE (14:03)
--- NOTE | 2016-10-22 15:45 | Progress Note ---
Subjective Date of Service: Oct 22, 2016. Subjective low grade temp but much more oriented and no c/o breathing issues, e coli identified but not with sensitivities yet Problem List Medical Problems: (1) Abdominal pain Status: Acute (2) Altered mental status Status: Acute (3) Anemia Status: Acute (4) Elevated troponin Status: Acute (5) Fever Status: Acute (6) Fever Status: Acute (7) Pulmonary edema Status: Acute (8) Seizure Status: Acute (9) Sepsis Status: Acute (10) Sepsis Status: Acute (11) Substernal chest pain Status: Acute (12) Temporal headache Status: Acute Review of Systems Constitutional: + fever, + weakness, + fatigue, No chills Respiratory: + dyspnea on exertion, No cough, No sputum, No shortness of breath Cardiac: No chest pain, No PND, No edema Breast: No nipple discharge Abdomen: No pain, No nausea, No diarrhea Musculoskeletal: No joint pain Male : No dysuria (improved), No urinary frequency, No incontinence Psychiatric: + problem reported (mild confusion), No depression symptoms, No anhedonism Objective Vital Signs Date Time Temp Pulse Resp B/P (MAP) Pulse Ox O2 Delivery O2 Flow Rate FiO2 10/22/16 12:00 98 Nasal Cannula 2.0 10/22/16 11:45 36.8 84 18 138/73 (94) 98 Room Air 10/22/16 08:00 98 Nasal Cannula 2.0 10/22/16 07:54 36.9 80 18 160/76 (104) 93 Room Air 10/22/16 04:04 99 Nasal Cannula 2.0 10/22/16 03:41 36.6 81 20 146/74 (98) 93 Room Air 10/22/16 00:10 99 Nasal Cannula 2.0 10/21/16 23:27 37.9 86 20 152/79 (103) 94 Room Air 10/21/16 20:00 99 Nasal Cannula 2.0 10/21/16 19:49 37.3 90 22 144/73 (96) 98 Humidified Air 2.5 10/21/16 16:00 97 Nasal Cannula 2.0 Physical Exam General Appearance: WD/WN, + mild distress Eyes: PERRL, EOMI Neck: supple, no JVD Respiratory/Chest: chest non-tender, lungs clear, normal breath sounds Cardiovascular: regular rate, rhythm, no murmur Abdomen: normal bowel sounds, non tender, soft Extremities: no calf tenderness, + pedal edema (trace) Neurologic/Psychiatric: alert, oriented x 3 Laboratory Results Last 24 Hours Test 10/21/16 17:14 10/21/16 20:10 10/22/16 06:19 10/22/16 11:25 Bedside Glucose 143 mg/dl 123 mg/dl 148 mg/dl Creatinine 1.30 mg/dl Est Creatinine Clear Calc Drug Dose 53.6 ml/min Estimated GFR () 61.0 Estimated GFR (Non- 52.6 Assessment and Plan 76 M metabolic encephalopahty from gram negative sepsis on admission, unclear source, CT with contrast does not support diverticulitis or GB disease, some perinephric stranding suggesting still could be pyelo, cxr 10/21 suggest some mild fluid overload, no defined infiltrates UTI/SIRS--metabolic encephalopathy did have recurrent fever, blood culture with e coli,history of drug resistant e coli in distant past, less fever with change to imipenem, and add azithro for atypical coverage in case mild HF on CXR is actually atypical CAD/hypertension/elevated troponin--likely supply demand mismatch, from physiologic stressor of infection Continue aspirin 81 mg , losartan 50 mg by mouth daily, and metoprolol succinate 25 mg, did have some mild HF seen on CXR does have chronic systolic heart failure so may have had an acute exacerbation with physiologic stressor, pending echo, one dose of lasix 10/21 with much improvement Hypothyroidism levothyroxine sodium at 25 g by mouth daily. GERD- pantoprazole 40 mg Depression-no complaints with sertraline 200 mg Hyperglycemia-not diabetic-blood sugar on entry is 157. normal hemoglobin A1c. controlled with diet restriction heparin for DVT prevention
--- NOTE | 2016-10-22 16:31 | ECHOCARDIOGRAM REPORT ---
*NOTICE TO RECEIVING CONSTITUTION PARTY AGENCY This information is strictly Confidential and protected under [place] law. [place] law prohibits you from making any further disclosure of this information unless further disclosure is expressly permitted by the written consent of the person to whom it pertains or is authorized by law. A general authorization for the release of medical or other information is not sufficient for this purpose. Hospital accepts no responsibility if the information is made available to any other person, INCLUDING THE PATIENT. Interpretation Summary * Name: JOHAN PANTOJA SR Study Date: 10/22/2016 01:36 PM BP: 138/73 mmHg * Patient Location: C.2T\S\S242\S\2 HR: 83 * : 1940 (M/d/yy) Gender: Male Height: 70 in * Age: 76 yrs Ethnicity: CA Weight: 205 lb * Ordering Physician: Bjorn Govea * Referring Physician: Self, Referred * Performed By: Miley Jensen RCS * * Reason For Study: CHF / ? VEG * BSA: 2.1 m2 * There is no evidence of a mass or vegetation. This does not rule out endocarditis. * -- Conclusions -- * The left ventricle is mildly dilated. * There is moderate concentric left ventricular hypertrophy. * Left ventricular systolic function is severely reduced. * Grade I diastolic dysfunction, (abnormal relaxation pattern). * There is moderate mitral annular calcification. * There is mild tricuspid regurgitation. * Right ventricular systolic pressure is elevated at 30-40mmHg. * Compared to a study from 04/2016, there is little difference. Procedure Details * A complete two-dimensional transthoracic echocardiogram was performed (2D, M-mode, Doppler and color flow Doppler). * A contrast injection of Definity was performed to improve assessment of LV function. * Contrast was injected into an intravenous site in the right arm. * One vial of Definity ultrasound contrast was diluted in normal saline to a total volume of 10 ml. A total of '2' ml of solution was administered during imaging. * Lot # [id number] of Definity utilized for procedure. * Expiration date NOV 10. * The attending nurse who injected the contrast agent was ELSIE LAKHANI, RN. Left Ventricle * The left ventricle is mildly dilated. * There is moderate concentric left ventricular hypertrophy. * Left ventricular systolic function is severely reduced. * Ejection Fraction = 25-30%. * Grade I diastolic dysfunction, (abnormal relaxation pattern). * GLobal hypokinesis with akinesis of the apex. Right Ventricle * The right ventricle is normal in size and function. Atria * The left atrial size is normal. * Right atrial size is normal. Mitral Valve * There is moderate mitral annular calcification. * Significant mitral regurgitation is absent. Tricuspid Valve * The tricuspid valve is not well visualized. * There is mild tricuspid regurgitation. * Right ventricular systolic pressure is elevated at 30-40mmHg. Aortic Valve * The aortic valve is normal in structure and function. * No hemodynamically significant valvular aortic stenosis. * There is no significant aortic regurgitation. Great Vessels * The aortic root is normal size. Pericardium/Pleural * There is no pericardial effusion. Great Vessels * Normal inferior vena cava size and collapsability with sniff indicates a normal right atrial pressure of 3 mmHg MMode 2D Measurements and Calculations IVSd 1.5 cm IVSs 1.7 cm LVIDd 5.9 cm LVIDs 4.8 cm LVPWd 1.8 cm LVPWs 1.6 cm IVS/LVPW 0.85 FS 19.1 % EDV(Teich) 174.0 ml ESV(Teich) 106.6 ml EF(Teich) 38.7 % EDV(cubed) 206.6 ml ESV(cubed) 109.4 ml EF(cubed) 47.1 % % IVS thick 11.1 % % LVPW thick -12.09 % LV mass(C)d 477.1 grams LV mass(C)dI 226.2 grams/m\S\2 LV mass(C)s 339.6 grams LV mass(C)sI 161.0 grams/m\S\2 SV(Teich) 67.4 ml SI(Teich) 32.0 ml/m\S\2 SV(cubed) 97.2 ml SI(cubed) 46.1 ml/m\S\2 Ao root diam 3.3 cm Ao root area 8.7 cm\S\2 ACS 2.2 cm LA dimension 3.7 cm LA/Ao 1.1 LVOT diam 2.0 cm LVOT area 3.1 cm\S\2 Doppler Measurements and Calculations MV E max marvel 69.7 cm/sec MV A max marvel 67.7 cm/sec MV E/A 1.0 MV P1/2t max marvel 91.8 cm/sec MV P1/2t 86.3 msec MVA(P1/2t) 2.5 cm\S\2 MV dec slope 311.7 cm/sec\S\2 MV dec time 0.20 sec Ao V2 max 102.7 cm/sec Ao max PG 4.2 mmHg Ao max PG (full) 1.6 mmHg CLAUDIA(V,A) 2.5 cm\S\2 CLAUDIA(V,D) 2.5 cm\S\2 LV V1 max PG 2.6 mmHg LV V1 max 80.3 cm/sec MR max marvel 477.9 cm/sec MR max PG 91.3 mmHg PA V2 max 62.4 cm/sec PA max PG 1.6 mmHg TR max marvel 280.0 cm/sec
--- NOTE | 2016-10-22 18:53 | Medical Consult ---
Consultation Date of Consultation: Oct 22, 2016. Attending Physician: Bjorn Govea M.D. Reason for Consultation: fever, source unclear History of Present Illness 76-year-old male with history of dementia and Parkinson's disease, who was in usual state of health until 1-2 days prior to admission, when he developed alteration in mental status with increasing confusion. He was thought to have urinary tract infection started on ciprofloxacin, but symptoms worsened and patient was brought to the hospital for further management. He has now been found to have positive blood cultures for E coli, sensitivities pending. He was initially started on IV cefepime, but now changed to imipenem. Temperature now decreasing. Mental status has improved. CT scan, read by me, shows only questionable stranding in the kidney area possibly suggestive of pyelonephritis , but no other acute intra-abdominal findings. Urine culture is negative. Urinalysis does have significant pyuria. Past Medical/Surgical History Medical Problems: (1) Abdominal pain Status: Acute (2) Altered mental status Status: Acute (3) Anemia Status: Acute (4) Elevated troponin Status: Acute (5) Fever Status: Acute (6) Fever Status: Acute (7) Pulmonary edema Status: Acute (8) Seizure Status: Acute (9) Sepsis Status: Acute (10) Sepsis Status: Acute (11) Substernal chest pain Status: Acute (12) Temporal headache Status: Acute Medical Problems: (1) Chest pain at rest (2) Heart disease (3) HTN (hypertension) (4) Pneumonia (5) SBO (small bowel obstruction) (6) Seizure-like activity (7) Shortness of breath (8) SIRS (systemic inflammatory response syndrome) (9) UTI (urinary tract infection) Family History FH: COPD (chronic obstructive pulmonary disease) Social History Smoking Status: Never Smoker Smokeless Tobacco Use: No Alcohol Use: none Drug Use: none Marital Status: Housing Status: lives with significant other Occupation Status: retired Allergies Coded Allergies: No Known Allergies (Unverified , 10/18/16) Current Inpatient Medications Current Inpatient Medications Medications (Trade) Dose Ordered Sig/Raudel Route Start Time Stop Time Status Last Admin Dose Admin Acetaminophen (Tylenol Tab) 650 mg Q4H PRN PO 10/18/16 20:00 11/17/16 19:59 10/22/16 01:12 650 MG Nitroglycerin (Nitrostat Tab) 0.4 mg UD PRN SL 10/18/16 20:00 11/17/16 19:59 Aspirin (Ecotrin Tab) 81 mg QPM PO 10/18/16 21:00 11/17/16 20:59 10/21/16 20:52 81 MG Gemfibrozil (Lopid Tab) 600 mg QAM PO 10/19/16 09:00 11/18/16 08:59 10/22/16 08:02 600 MG Levothyroxine Sodium (Synthroid Tab) 25 mcg DAILYBB PO 10/19/16 06:00 11/18/16 05:59 10/22/16 05:18 25 MCG Metoprolol Succinate (Toprol Xl Tab) 25 mg HS PO 10/18/16 21:00 11/17/16 20:59 10/21/16 20:52 25 MG Multivitamins/ Minerals (Multivitamin W/ Minerals Tab) 1 tab DAILY PO 10/19/16 09:00 11/18/16 08:59 10/22/16 08:02 1 TAB Pantoprazole Sodium (Protonix Tab) 40 mg QAM PO 10/19/16 09:00 11/18/16 08:59 10/22/16 08:02 40 MG Promethazine HCl (Phenergan Tab) 12.5 mg Q6H PRN PO 10/18/16 20:00 11/17/16 19:59 Sertraline HCl (Zoloft Tab) 200 mg QAM PO 10/19/16 09:00 11/18/16 08:59 10/22/16 08:03 200 MG Triamcinolone Acetonide (Kenalog 0.025% Crm) 1 appln DAILY PRN TOP 10/18/16 20:00 11/17/16 19:59 Heparin Sodium (Porcine) (Heparin Sq 5000 Unit/0.5ml) 5,000 unit Q12 SQ 10/20/16 09:00 11/19/16 08:59 10/22/16 10:12 5,000 UNIT Ondansetron HCl (Zofran Inj) 4 mg Q6H PRN IV 10/20/16 12:30 11/19/16 12:29 Imipenem/ Cilastatin Sodium 500 mg/Dextrose 120 ml @ 100 mls/hr Q6H IV 10/21/16 08:00 10/31/16 07:59 10/22/16 14:13 100 MLS/HR Azithromycin (Zithromax Tab) 250 mg QAM PO 10/22/16 09:00 10/28/16 08:59 10/22/16 08:03 250 MG Review of Systems Constitutional: + fever, + weakness Eyes: No problem reported ENT: No problem reported Respiratory: + dyspnea on exertion Cardiovascular: No problem reported Abdomen: No problem reported Musculoskeletal: No problem reported Genitourinary - Male: No problem reported Neurologic: No problem reported Psychiatric: No problem reported Endocrine: No problem reported Hematologic / Lymphatic: No problem reported Integumentary: No problem reported Allergic / Immunologic: No problem reported Physical Exam Date Time Temp Pulse Resp B/P (MAP) Pulse Ox O2 Delivery O2 Flow Rate FiO2 10/22/16 16:04 36.8 86 22 117/66 (83) 92 Room Air 10/22/16 16:00 98 Nasal Cannula 2.0 10/22/16 12:00 98 Nasal Cannula 2.0 10/22/16 11:45 36.8 84 18 138/73 (94) 98 Room Air 10/22/16 08:00 98 Nasal Cannula 2.0 10/22/16 07:54 36.9 80 18 160/76 (104) 93 Room Air 10/22/16 04:04 99 Nasal Cannula 2.0 10/22/16 03:41 36.6 81 20 146/74 (98) 93 Room Air 10/22/16 00:10 99 Nasal Cannula 2.0 10/21/16 23:27 37.9 86 20 152/79 (103) 94 Room Air 10/21/16 20:00 99 Nasal Cannula 2.0 10/21/16 19:49 37.3 90 22 144/73 (96) 98 Humidified Air 2.5 General Appearance: WD/WN, no apparent distress Head: normocephalic, atraumatic Eyes: normal inspection, EOMI, sclerae normal ENT: normal ENT inspection, hearing grossly normal, pharynx normal Neck: supple, no adenopathy, thyroid normal, trachea midline Respiratory/Chest: chest non-tender, lungs clear, normal breath sounds, no respiratory distress Cardiovascular: regular rate, rhythm, no gallop, no murmur Abdomen/GI: normal bowel sounds, non tender, soft, no organomegaly Back: normal inspection, no CVA tenderness Extremities/Musculoskelatal: no calf tenderness, non-tender Neurologic/Psych: alert, oriented x 3 Skin: normal color, warm/dry, no rash Lymphatic: no adenopathy Laboratory Results RUN DATE: 10/22/16 [facility] PAGE 1 RUN TIME: 741 Specimen Inquiry PATIENT: JOHAN PANTOJA LOC: [facility] U # : [id number] AGE/SX: 76/M ROOM: [facility] REG : 10/18/[address]: Bjorn Govea M : 1940 BED: 2 DIS : STATUS: ADM IN TLOC: SPEC #: [id number] DILCIA: 10/18/16 STATUS: RES REQ #: [id number] RECD: 10/18/[address]: Shaan Inman DO SOURCE: BLOOD ENTR: 10/18/16-1726 [facility] DR: Miley Potts M.D. [facility]: ORDERED: BLOOD CULTURE Procedure Result Verified Site BLD CULT Preliminary 10/22/16-42 Organism 1 ESCHERICHIA COLI SENS SENSITIVITY TO FOLLOW Phoned Positive Blood Culture Gram Stain Report to ANTHONY FELTON on 10/20/16 At 0458 By WEI. Results were verbalized back to WEI. Last 24 Hours Test 10/21/16 20:10 10/22/16 06:19 10/22/16 11:25 Bedside Glucose 123 mg/dl 148 mg/dl Creatinine 1.30 mg/dl Est Creatinine Clear Calc Drug Dose 53.6 ml/min Estimated GFR () 61.0 Estimated GFR (Non- 52.6 Patient Name: JOHAN PANTOJA Unit Number: [id number] Dictated: 10/20/161445 Transcribed: 10/20/161445 PBS Printed Date/Time: [~ rep prt dt]/[~ rep prt tm] [~ rep ct labl] - [~ rep ct ivnm] [facility] [place] [address] Dictated: 10/20/16 1446 Transcribed: 10/20/16 1446 [facility] Printed Date/Time: [~ rep prt dt]/[~ rep prt tm] [~ rep ct labl] - [~ rep ct ivnm] ABD/PELVIS ORAL CONT ONLY CLINICAL HISTORY: 76 years-old Male presenting with eval for intra abdominal source for sepsis. TECHNIQUE: Multidetector CT of the abdomen and pelvis was performed without the use of intravenous contrast. IV contrast: None. A dose lowering technique was used consistent with the principles of ALARA (as low as reasonably achievable). COMPARISON: 10/18/2016. CT DOSE (mGy.cm): The estimated cumulative dose is 998.81 mGycm. FINDINGS: Ground Intelligence Officer topogram: Unremarkable. Lung bases: Interval development of small right and trace left pleural effusion with associated dependent consolidation, right greater than left, likely passive atelectasis. Multichamber enlargement of the heart. The intraventricular blood pool is less dense than the adjacent myocardium indicative of anemia. Coronary artery calcification. Liver: Normal morphology. Borderline hepatic steatosis. Biliary: No gross evidence of biliary ductal dilatation. Normal gallbladder. Pancreas: Mild parenchymal atrophy. Spleen: Top normal in size measuring 13 cm. Adrenal glands: Normal. Kidneys and ureters: Nonspecific perinephric fat stranding. No nephrolithiasis. No hydronephrosis. Gastrointestinal tract: Limited sigmoid diverticulosis. Normal appendix. No bowel obstruction. Peritoneal cavity: No free fluid or intraperitoneal gas. Bladder: Decompressed with a Soriano catheter. Gas in the urinary bladder likely relates to the presence of the Soriano catheter. Pelvic organs: Prostate and seminal vesicles normal. Vasculature: Atherosclerosis of the normal caliber abdominal aorta. Lymph nodes: No enlarged lymph nodes in the abdomen or pelvis. Abdominal wall: Left fat-containing inguinal hernia. Musculoskeletal: Degenerative changes of the spine. IMPRESSION: 1. Interval development of small right and trace left pleural effusions likely accompanied by passive atelectasis. 2. No convincing evidence of intra-abdominal pathology. 3. Borderline hepatic steatosis. 4. Borderline hepatomegaly. 5. Limited diverticulosis. Electronically signed by: oDn Khoury M.D. 10/20/2016 2:53 PM Dictated Date/Time: 10/20/2016 2:46 PM The status of this report is Signed. Draft = Not yet reviewed or approved by Radiologist. Signed = Reviewed and approved by Radiologist. <AttendingPhy>Bjorn Govea M.D.</AttendingPhy> <FamilyPhy>Miley Potts M.D.</FamilyPhy> <PrimaryPhy>Miley Potts M.D.</PrimaryPhy> <UnitNumber> [id number]</UnitNumber> <VisitNumber>[id number]</VisitNumber> <PatientName> JOHAN PANTOJA </PatientName> <DateOfBirth>1940</DateOfBirth> <Location> C.2T</Location> <ServiceDate>10/18/16</ServiceDate> <MNE>ESINDI</MNE> < OrderingPhy>Bjorn Govea M.D.</OrderingPhy> <OrderingPhyMNE>f rep ord dr nelson</OrderingPhyMNE> <DictatingPhyMNE>f rep dict dr nelson</DictatingPhyMNE> < CCListMNE>f rep ct mne</CCListMNE> <AdmittingPhyMNE>f pt admit dr nelson</ AdmittingPhyMNE> <AttendingPhyMNE>f pt attend dr nelson</AttendingPhyMNE> <ConsultingPhyMNE>f pt consult dr nelson</ConsultingPhyMNE> <FamilyPhyMNE>f pt fam dr nelson</FamilyPhyMNE> <OtherPhyMNE>f pt other dr neslon</OtherPhyMNE> < PrimaryPhyMNE>f pt prim care dr nelson</PrimaryPhyMNE> <ReferringPhyMNE>f pt referring dr nelson</ReferringPhyMNE> Assessment & Plan 76-year-old male with Parkinson's and dementia now presents with acute encephalopathy with E coli bacteremia, most likely from urinary source. Suspect isolate will be ESBL positive, and agree with the use of imipenem pending final sensitivity results. Will likely require in the range of his 10- 14 days of IV antibiotics. Will discuss with all involved.
[2016-10-22] MEDS: ASPIRIN 81 MG ECTAB PO SCH (20:51)
[2016-10-22] MEDS: METOPROLOL SUCC 25MG EXT REL TAB PO SCH (20:51)
[2016-10-23] VITALS (7 sets, daily range): BP systolic 143–161; BP diastolic 73–80; PULSE 58–87; TEMP 36.4–37.2; O2SAT 93–99
[2016-10-23] MEDS: IMIPENEM-CILASTATIN 500 MG in DEXTROSE 5% 100ML 100 ML IV SCH ×2 (01:47→08:11)
[2016-10-23] MEDS: LEVOTHYROXINE 25 MCG TAB PO SCH (04:27)
[2016-10-23 07:03] LABS: HEMATOCRIT 30.2 % (42-52); MEAN CELL VOLUME 85.8 fL (80-100); MEAN CORPUSCULAR HEMOGLOBIN 28.4 pg (25-34); MEAN CORPUSCULAR HGB CONC 33.1 g/dl (32-36); MEAN PLATELET VOLUME 9.4 fL (7.4-10.4); PLATELET COUNT 274 K/uL (130-400); RED BLOOD COUNT 3.52 M/uL (4.7-6.1); WHITE BLOOD COUNT 10.65 K/uL (4.8-10.8)
[2016-10-23 07:32] LABS: BUN/CREATININE RATIO 23.9 (10-20); CALCIUM 8.9 mg/dl (8.5-10.1); CREATININE 1.1 mg/dl (0.60-1.40); POTASSIUM 3.8 mmol/L (3.5-5.1)
[2016-10-23] MEDS: AZITHROMYCIN 250 MG TAB PO SCH (08:47)
[2016-10-23] MEDS: SERTRALINE HCL 100 MG TAB PO SCH (08:48)
[2016-10-23] MEDS: CEROVITE ADV FORMULA TAB PO SCH (08:48)
[2016-10-23] MEDS: GEMFIBROZIL 600 MG TAB PO SCH (08:48)
[2016-10-23] MEDS: PANTOprazole SOD 40 MG TAB PO SCH (08:48)
[2016-10-23] MEDS ORDERED: COUGH DROP (SUGAR FREE) LOZ 24 LOZ/1 BOX ONE (08:50)
[2016-10-23] MEDS: HEPARIN SOD 5000 UNIT/0.5 ML CARP SQ SCH ×2 (08:54→20:11)
[2016-10-23] MEDS: ERTAPENEM IV 1 GM in SODIUM CHLOR 0.9% AD-VAN 50ML 50 ML IV SCH (14:30)
--- NOTE | 2016-10-23 14:40 | Hospitalist Progress Note ---
Hospitalist Progress Note Date of Service Oct 23, 2016. Subjective Pt evaluation today including: conversation w/ patient, physical exam, chart review, lab review, conversation w/ market intelligence consultant (spoke with Dr. Roberts), review of inpatient medication list Pain: 4/10 LLQ pain PO Intake: Tolerating PO diet, appetite improving Voiding: harper catheter in place Patient reports feeling better today. He states that his appetite is finally starting to come back. He does complain of a 4/10 aching pain in his LLQ that is worse with palpation. He is feeling somewhat generally weak and fatigued. The patient denies fevers, chills, sweats, chest pain, palpitations, claudication, cough, wheezing, shortness of breath, nausea, vomiting, dysuria, hematuria, urinary retention, paralysis, motor weakness, numbness and tingling. Additional Comments: See HPI for pertinent positives and negatives. All other systems reviewed and negative. Objective Vital Signs Date Time Temp Pulse Resp B/P (MAP) Pulse Ox O2 Delivery O2 Flow Rate FiO2 10/23/16 12:11 Room Air 10/23/16 12:03 36.9 87 16 145/77 (99) 95 Room Air 10/23/16 08:00 Room Air 10/23/16 07:53 36.4 79 16 161/80 (107) 95 10/23/16 04:22 37.1 58 17 143/73 (96) 93 Room Air 10/23/16 04:19 99 Nasal Cannula 2.0 10/23/16 00:14 99 Nasal Cannula 2.0 10/22/16 23:32 37.0 83 21 148/74 (98) 96 Room Air 10/22/16 20:00 99 Nasal Cannula 2.0 10/22/16 19:38 37.3 81 22 133/70 (91) 93 Room Air 10/22/16 16:04 36.8 86 22 117/66 (83) 92 Room Air 10/22/16 16:00 98 Nasal Cannula 2.0 Physical Exam Notes: General appearance: Well-developed, well-nourished, no apparent distress Head: Normocephalic, atraumatic Eyes: Normal inspection, PERRL, EOMI ENT: Normal ENT inspection, hearing grossly normal, pharynx normal Neck: Supple, no JVD, trachea midline Respiratory/Chest: Lungs clear to auscultation, normal breath sounds, no respiratory distress Cardiovascular: Regular rate & rhythm, no gallop, no murmur Abdomen/GI: +RUQ and LLQ TTP. Normal bowel sounds, soft Extremities/Musculoskeletal: Normal inspection, no calf tenderness, no pedal edema Neurological/Psych: Alert, normal mood/affect, oriented x 3 Skin: Normal color, warm/dry, no rash Laboratory Results Last 24 Hours Test 10/22/16 20:14 10/23/16 06:32 Bedside Glucose 116 mg/dl White Blood Count 10.65 K/uL Red Blood Count 3.52 M/uL Hemoglobin 10.0 g/dL Hematocrit 30.2 % Mean Corpuscular Volume 85.8 fL Mean Corpuscular Hemoglobin 28.4 pg Mean Corpuscular Hemoglobin Concent 33.1 g/dl RDW Standard Deviation 45.4 fL RDW Coefficient of Variation 14.6 % Platelet Count 274 K/uL Mean Platelet Volume 9.4 fL Nucleated RBC Absolute Count (auto) 0.02 K/uL Nucleated Red Blood Cells % 0.2 % Sodium Level 140 mmol/L Potassium Level 3.8 mmol/L Chloride Level 108 mmol/L Carbon Dioxide Level 24 mmol/L Anion Gap 8.0 mmol/L Blood Urea Nitrogen 26 mg/dl Creatinine 1.10 mg/dl Est Creatinine Clear Calc Drug Dose 63.3 ml/min Estimated GFR () 74.7 Estimated GFR (Non- 64.4 BUN/Creatinine Ratio 23.9 Random Glucose 108 mg/dl Calcium Level 8.9 mg/dl Diagnostic Results Echocardiogram: Interpretation Summary * Name: SCARLETTJOHAN SR Study Date: 10/22/2016 01:36 PM BP: 138/73 mmHg * Patient Location: [facility]\\42\S\2 HR: 83 * : 1940 (M/d/yyyy) Gender: Male Height: 70 in * Age: 76 yrs Ethnicity: CA Weight: 205 lb * Ordering Physician: Bjorn Govea * Referring Physician: Self, Referred * Performed By: Miley Jensen RCS * * Reason For Study: CHF / ? VEG * BSA: 2.1 m2 * There is no evidence of a mass or vegetation. This does not rule out endocarditis. * -- Conclusions -- * The left ventricle is mildly dilated. * There is moderate concentric left ventricular hypertrophy. * Left ventricular systolic function is severely reduced. * Grade I diastolic dysfunction, (abnormal relaxation pattern). * There is moderate mitral annular calcification. * There is mild tricuspid regurgitation. * Right ventricular systolic pressure is elevated at 30-40mmHg. * Compared to a study from 04/2016, there is little difference. Procedure Details * A complete two-dimensional transthoracic echocardiogram was performed (2D, M- mode, Doppler and color flow Doppler). * A contrast injection of Definity was performed to improve assessment of LV function. * Contrast was injected into an intravenous site in the right arm. * One vial of Definity ultrasound contrast was diluted in normal saline to a total volume of 10 ml. A total of '2' ml of solution was administered during imaging. * Lot # [id number] of Definity utilized for procedure. * Expiration date NOV 10. * The attending nurse who injected the contrast agent was ELSIE LAKHANI, MALLIKA. Left Ventricle * The left ventricle is mildly dilated. * There is moderate concentric left ventricular hypertrophy. * Left ventricular systolic function is severely reduced. * Ejection Fraction = 25-30%. * Grade I diastolic dysfunction, (abnormal relaxation pattern). * GLobal hypokinesis with akinesis of the apex. Right Ventricle * The right ventricle is normal in size and function. Atria * The left atrial size is normal. * Right atrial size is normal. Mitral Valve * There is moderate mitral annular calcification. * Significant mitral regurgitation is absent. Tricuspid Valve * The tricuspid valve is not well visualized. * There is mild tricuspid regurgitation. * Right ventricular systolic pressure is elevated at 30-40mmHg. Aortic Valve * The aortic valve is normal in structure and function. * No hemodynamically significant valvular aortic stenosis. * There is no significant aortic regurgitation. Great Vessels * The aortic root is normal size. Pericardium/Pleural * There is no pericardial effusion. Great Vessels * Normal inferior vena cava size and collapsability with sniff indicates a normal right atrial pressure of 3 mmHg Assessment and Plan 76 y/o male with a history of HTN, HLD, cardiomyopathy, chronic systolic CHF, DM II, hypothyroidism, anxiety/depression and GERD who presents with worsening altered mental status. Metabolic encephalopathy due to sepsis with presumed urinary source and bacteremia, recurrent fevers--improving -Admit to telemetry. No acute events overnight. Pt in sinus rhythm with PVCs, HR in the 80s. Stable, transfer to med/surg on 10/23 -CT abdomen and pelvis no acute infectious process. -Repeat CT abdomen and pelvis still no acute infectious process -Blood culture positive for mcpherson-sensitive E. Coli x 1. H/o drug resistant E. Coli -Redraw blood cultures x 2 -Urine cultures drawn 10/18 and 10/21 both negative -Afebrile since 10/21 -Infectious disease consulted, appreciate recs: Spoke with Dr. Roberts, can switch imipenem to ertapenem. Will need total of 10-14 days IV antibiotics. Can d/c azithromycin. -Imipenem d/c'd, switched to ertapenem 1 gm IV qd -Azithromycin d/c'd -CXR 10/21 had shown interval developemnt of bilateral airspace opacities reflecting pulmonary edema vs infectious process. Pt received 1 dose Lasix 40 mg IV and improved. -Repeat CXR 2 view now for follow up, although infectious process is unlikely, no s/s of PNA HTN, cardiomyopathy, chronic systolic CHF--stable -Continue ASA 81 mg PO qd, losartan 50 mg PO qd, and metoprolol succinate 25 mg PO qd -Pulmonary congestion CXR 10/21, received 1 dose Lasix 40 mg IV -Repeat CXR as above -Echo: * -- Conclusions -- * The left ventricle is mildly dilated. * There is moderate concentric left ventricular hypertrophy. * Left ventricular systolic function is severely reduced. LVEF 25-30% * Grade I diastolic dysfunction, (abnormal relaxation pattern). * There is moderate mitral annular calcification. * There is mild tricuspid regurgitation. * Right ventricular systolic pressure is elevated at 30-40mmHg. * Compared to a study from 04/2016, there is little difference. HLD -Continue gemfibrozil 600 mg PO qd DM II--last HgbA1c checked 10/18/16 was 5.8 -Diet controlled Hypothyroidism -Continue Synthroid 25 g PO qd Anxiety/depression -Continue Zoloft 200 mg PO qd GERD -Continue pantoprazole 40 mg PO qd DVT prophylaxis -Heparin 5000 units SC q12 -SCDs Code Status -Level V, DO NOT RESUSCITATE
--- NOTE | 2016-10-23 16:13 | DIAGNOSTIC IMAGING REPORT ---
TWO VIEW CHEST CLINICAL HISTORY: Follow-up pneumonia. FINDINGS: AP and lateral chest radiographs are compared to study dated 10/21/2016. The heart is enlarged and there is atherosclerotic calcification of the thoracic aorta. There is prominence of the pulmonary vasculature. Chronic interstitial thickening is unchanged. Perihilar airspace opacities have improved from 10/21/2016. There is no large pleural effusion, or pneumothorax is seen. The skeletal structures are osteopenic. 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 IMPRESSION: 1. Cardiomegaly with prominence of the pulmonary vasculature. Cortical clinically for evidence of mild congestive failure. 2. Perihilar opacities have modestly improved from 10/21/2016. Clinical correlation will be required. Electronically signed by: Antelmo Howe M.D. 10/23/2016 4:12 PM Dictated Date/Time: 10/23/2016 4:09 PM
--- NOTE | 2016-10-23 18:05 | Infectious Disease Progress Nt ---
Progress Note Date of Service Oct 23, 2016. Subjective Pt evaluation today including: conversation w/ patient, physical exam, chart review, lab review, review of studies, conversation w/ clinical science consultant, review of inpatient medication list Patient states he is feeling better today, remains afebrile. Abdominal pain is slightly better, but still with 3 to 4/10 left lower quadrant pain. Blood cultures have grown E coli. All Other Systems: Reviewed and Negative Medications Current Inpatient Medications Medications (Trade) Dose Ordered Sig/Raudel Route Start Time Stop Time Status Last Admin Dose Admin Acetaminophen (Tylenol Tab) 650 mg Q4H PRN PO 10/18/16 20:00 11/17/16 19:59 10/22/16 01:12 650 MG Nitroglycerin (Nitrostat Tab) 0.4 mg UD PRN SL 10/18/16 20:00 11/17/16 19:59 Aspirin (Ecotrin Tab) 81 mg QPM PO 10/18/16 21:00 11/17/16 20:59 10/22/16 20:51 81 MG Gemfibrozil (Lopid Tab) 600 mg QAM PO 10/19/16 09:00 11/18/16 08:59 10/23/16 08:48 600 MG Levothyroxine Sodium (Synthroid Tab) 25 mcg DAILYBB PO 10/19/16 06:00 11/18/16 05:59 10/23/16 04:27 25 MCG Metoprolol Succinate (Toprol Xl Tab) 25 mg HS PO 10/18/16 21:00 11/17/16 20:59 10/22/16 20:51 25 MG Multivitamins/ Minerals (Multivitamin W/ Minerals Tab) 1 tab DAILY PO 10/19/16 09:00 11/18/16 08:59 10/23/16 08:48 1 TAB Pantoprazole Sodium (Protonix Tab) 40 mg QAM PO 10/19/16 09:00 11/18/16 08:59 10/23/16 08:48 40 MG Promethazine HCl (Phenergan Tab) 12.5 mg Q6H PRN PO 10/18/16 20:00 11/17/16 19:59 Sertraline HCl (Zoloft Tab) 200 mg QAM PO 10/19/16 09:00 11/18/16 08:59 10/23/16 08:48 200 MG Triamcinolone Acetonide (Kenalog 0.025% Crm) 1 appln DAILY PRN TOP 10/18/16 20:00 11/17/16 19:59 Heparin Sodium (Porcine) (Heparin Sq 5000 Unit/0.5ml) 5,000 unit Q12 SQ 10/20/16 09:00 11/19/16 08:59 10/23/16 08:54 5,000 UNIT Ondansetron HCl (Zofran Inj) 4 mg Q6H PRN IV 10/20/16 12:30 11/19/16 12:29 Ertapenem 1 gm/ Sodium Chloride 50 ml @ 120 mls/hr Q24H IV 10/23/16 14:00 11/06/16 13:59 10/23/16 14:30 120 MLS/HR Objective Vital Signs Date Time Temp Pulse Resp B/P (MAP) Pulse Ox O2 Delivery O2 Flow Rate FiO2 10/23/16 16:01 37.2 75 18 156/78 (104) 94 Room Air 10/23/16 12:11 Room Air 10/23/16 12:03 36.9 87 16 145/77 (99) 95 Room Air 10/23/16 08:00 Room Air 10/23/16 07:53 36.4 79 16 161/80 (107) 95 10/23/16 04:22 37.1 58 17 143/73 (96) 93 Room Air 10/23/16 04:19 99 Nasal Cannula 2.0 10/23/16 00:14 99 Nasal Cannula 2.0 10/22/16 23:32 37.0 83 21 148/74 (98) 96 Room Air 10/22/16 20:00 99 Nasal Cannula 2.0 10/22/16 19:38 37.3 81 22 133/70 (91) 93 Room Air Physical Exam General Appearance: WD/WN, no apparent distress Eyes: normal inspection, sclerae normal ENT: normal ENT inspection, pharynx normal Neck: supple, no adenopathy, trachea midline Respiratory/Chest: chest non-tender, lungs clear, normal breath sounds, no respiratory distress Cardiovascular: regular rate, rhythm, no gallop, no murmur Abdomen: normal bowel sounds, soft, no organomegaly, + tenderness ( Mild left lower quadrant) Extremities: non-tender, no calf tenderness Neurologic/Psychiatric: alert, oriented x 3 Skin: normal color, no rash Lymphatic: no adenopathy Laboratory Results RUN DATE: 10/23/16 [facility] LAB PAGE 1 RUN TIME: 656 Specimen Inquiry PATIENT: SCARLETTJOHAN SR LOC: Gustavo U # : [id number] AGE/SX: 76/M ROOM: [facility] REG : 10/18/[address]: Bjorn Govea M : 1940 BED: 2 DIS : STATUS: ADM IN TLOC: SPEC #: [id number] DILCIA: 10/18/16 STATUS: RES REQ #: [id number] RECD: 10/18/[address]: Shaan Inman DO SOURCE: BLOOD ENTR: 10/18/16-1725 [facility] DR: Miley Potts M.D. [facility]: BLOOD CULTURE Procedure Result Verified Site BLD CULT Preliminary 10/23/16-0657 Organism 1 ESCHERICHIA COLI SENS SENSITIVITY TO FOLLOW Phoned Positive Blood Culture Gram Stain Report to ANTHONY FELTON on 10/20/16 At 0458 By WEI. Results were verbalized back to WEI. 1. ESCHERICHIA COLI Target Route Dose RX AB Cost M.I.C. IQ ------ ----- ------ -- ------ -------- - ------ TRIMET/SULFA S <=2/38 AMPICILLIN S <=8 AMPICILLIN/SUL S <=8/4 CEFAZOLIN S <=8 CEFOTAXIME S <=2 CEFTRIAXONE S <=1 CEFEPIME S <=4 CEFUROXIME S <=4 IMIPENEM S <=1 GENTAMICIN S <=4 TOBRAMYCIN S <=4 AMIKACIN S <=16 CIPROFLOXACIN S <=1 LEVOFLOXACIN S <=2 ERTAPENEM S <=1 PIP/TAZO S <=16 S = SENSITIVE I = INTERMEDIATE R = RESISTANT END OF REPORT Last 24 Hours Test 10/22/16 20:14 10/23/16 06:32 Bedside Glucose 116 mg/dl White Blood Count 10.65 K/uL Red Blood Count 3.52 M/uL Hemoglobin 10.0 g/dL Hematocrit 30.2 % Mean Corpuscular Volume 85.8 fL Mean Corpuscular Hemoglobin 28.4 pg Mean Corpuscular Hemoglobin Concent 33.1 g/dl RDW Standard Deviation 45.4 fL RDW Coefficient of Variation 14.6 % Platelet Count 274 K/uL Mean Platelet Volume 9.4 fL Nucleated RBC Absolute Count (auto) 0.02 K/uL Nucleated Red Blood Cells % 0.2 % Sodium Level 140 mmol/L Potassium Level 3.8 mmol/L Chloride Level 108 mmol/L Carbon Dioxide Level 24 mmol/L Anion Gap 8.0 mmol/L Blood Urea Nitrogen 26 mg/dl Creatinine 1.10 mg/dl Est Creatinine Clear Calc Drug Dose 63.3 ml/min Estimated GFR () 74.7 Estimated GFR (Non- 64.4 BUN/Creatinine Ratio 23.9 Random Glucose 108 mg/dl Calcium Level 8.9 mg/dl Patient Name: JOHAN PANTOJA SR Unit Number: [id number] Dictated: 10/23/161608 Transcribed: 10/23/161608 EV Printed Date/Time: [~ rep prt dt]/[~ rep prt tm] [~ rep ct labl] - [~ rep ct ivnm] [facility] Radiology Department [place] [id number] Dictated: 10/23/161608 Transcribed: 10/23/161608 EV Printed Date/Time: [~ rep prt dt]/[~ rep prt tm] [~ rep ct labl] - [~ rep ct ivnm] CLINICAL HISTORY: Follow-up pneumonia. FINDINGS: AP and lateral chest radiographs are compared to study dated 10/21/2016. The heart is enlarged and there is atherosclerotic calcification of the thoracic aorta. There is prominence of the pulmonary vasculature. Chronic interstitial thickening is unchanged. Perihilar airspace opacities have improved from 10/21/2016. There is no large pleural effusion, or pneumothorax is seen. The skeletal structures are osteopenic. 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 IMPRESSION: 1. Cardiomegaly with prominence of the pulmonary vasculature. Cortical clinically for evidence of mild congestive failure. 2. Perihilar opacities have modestly improved from 10/21/2016. Clinical correlation will be required. Electronically signed by: Antelmo Howe M.D. 10/23/2016 4:12 PM Dictated Date/Time: 10/23/2016 4:09 PM The status of this report is Signed. Draft = Not yet reviewed or approved by Radiologist. Signed = Reviewed and approved by Radiologist. <AttendingPhy>Leo Berman MD, PhD</AttendingPhy> <FamilyPhy>Miley Potts M.D.</FamilyPhy> <PrimaryPhy>Miley Potts M.D.</PrimaryPhy> <UnitNumber> [id number]</UnitNumber> <VisitNumber>[id number]</VisitNumber> <PatientName> JOHAN PANTOJA </PatientName> <DateOfBirth>1940</DateOfBirth> <Location> C.4E</Location> <ServiceDate>10/18/16</ServiceDate> <MNE>ESINDI</MNE> < OrderingPhy>Kathrin Ibrahim PA-C</OrderingPhy> <OrderingPhyMNE>f rep ord dr nelson< /OrderingPhyMNE> <DictatingPhyMNE>f rep dict dr nelson</DictatingPhyMNE> <CCListMNE >f rep ct leslie</CCListMNE> <AdmittingPhyMNE>f pt admit dr nelson</AdmittingPhyMNE> < AttendingPhyMNE>f pt attend dr nelson</AttendingPhyMNE> <ConsultingPhyMNE>f pt consult dr nelson</ConsultingPhyMNE> <FamilyPhyMNE>f pt fam dr nelson</FamilyPhyMNE> <OtherPhyMNE>f pt other dr nelson</OtherPhyMNE> < PrimaryPhyMNE>f pt prim care dr nelson</PrimaryPhyMNE> <ReferringPhyMNE>f pt referring dr nelson</ReferringPhyMNE> Assessment and Plan 76-year-old male with Parkinson's and dementia now presents with acute encephalopathy with E coli bacteremia, most likely from urinary source. patient appears to be responding to current antibiotic therapy, would recommend change to IV ertapenem 1 gram daily which would provide easier therapy. Would give 14 days total of therapy including the previous therapy with imipenem. Discussed with hospitalist service. Will continue to follow.
[2016-10-23] MEDS: ASPIRIN 81 MG ECTAB PO SCH (20:11)
[2016-10-23] MEDS: METOPROLOL SUCC 25MG EXT REL TAB PO SCH (20:12)
[2016-10-24 00:10] VITALS: BP 159/80; PULSE 79; TEMP 37; O2SAT 94
[2016-10-24] MEDS: LEVOTHYROXINE 25 MCG TAB PO SCH (06:22)
[2016-10-24 08:16] VITALS: BP 157/83; PULSE 79; TEMP 36.8; O2SAT 98
[2016-10-24] MEDS: GEMFIBROZIL 600 MG TAB PO SCH (08:52)
[2016-10-24] MEDS: CEROVITE ADV FORMULA TAB PO SCH (08:52)
[2016-10-24] MEDS: SERTRALINE HCL 100 MG TAB PO SCH (08:52)
[2016-10-24] MEDS: PANTOprazole SOD 40 MG TAB PO SCH (08:52)
[2016-10-24] MEDS: HEPARIN SOD 5000 UNIT/0.5 ML CARP SQ SCH ×2 (08:53→20:56)
[2016-10-24] MEDS: ERTAPENEM IV 1 GM in SODIUM CHLOR 0.9% AD-VAN 50ML 50 ML IV SCH (14:24)
--- NOTE | 2016-10-24 14:45 | Hospitalist Progress Note ---
Hospitalist Progress Note Date of Service Oct 24, 2016. Subjective Pt evaluation today including: conversation w/ patient, physical exam, chart review, lab review, review of inpatient medication list Pain: None PO Intake: Tolerating PO diet, appetite improving Voiding: harper catheter in place Patient reports feeling well and the same as yesterday. His appetite has continued to improve. He still complains of an intermittent 4/10 aching pain in the left side of his abdomen but denies any pain currently. He still complains of generalized weakness and fatigue. The patient denies fevers, chills, sweats, chest pain, palpitations, claudication, cough, wheezing, shortness of breath, nausea, vomiting, abdominal pain, dysuria, hematuria, urinary retention, paralysis, weakness, numbness and tingling. Additional Comments: See HPI for pertinent positives and negatives. All other systems reviewed and negative. Objective Vital Signs Date Time Temp Pulse Resp B/P (MAP) Pulse Ox O2 Delivery O2 Flow Rate FiO2 10/24/16 08:16 36.8 79 18 157/83 (107) 98 Room Air 10/24/16 08:16 Room Air 10/24/16 00:10 37.0 79 20 159/80 (106) 94 Room Air 10/23/16 23:30 Room Air 10/23/16 16:10 94 Room Air 10/23/16 16:01 37.2 75 18 156/78 (104) 94 Room Air Physical Exam Notes: General appearance: Well-developed, well-nourished, no apparent distress Head: Normocephalic, atraumatic Eyes: Normal inspection, PERRL, EOMI ENT: Normal ENT inspection, hearing grossly normal, pharynx normal Neck: Supple, no JVD, trachea midline Respiratory/Chest: Lungs clear to auscultation, normal breath sounds, no respiratory distress Cardiovascular: Regular rate & rhythm, no gallop, no murmur Abdomen/GI: Normal bowel sounds, non-tender, soft Extremities/Musculoskeletal: Normal inspection, no calf tenderness, no pedal edema Neurological/Psych: Alert, normal mood/affect, oriented x 3 Skin: Normal color, warm/dry, no rash Diagnostic Results Reviewed the following studies and agree with interpretation as follows: Patient Name: JOHAN PANTOJA Unit Number: [id number] Dictated: 10/23/16 1609 Transcribed: 10/23/16 160 EV Printed Date/Time: [~ rep prt dt]/[~ rep prt tm] [~ rep ct labl] - [~ rep ct ivnm] [facility] [place] [address] Dictated: 10/23/161608 Transcribed: 10/23/161608 EV Printed Date/Time: [~ rep prt dt]/[~ rep prt tm] [~ rep ct labl] - [~ rep ct ivnm] Patient: JOHAN PANTOJA Address1: [address] [facility] Rec: [id number] Address2: Acct ID: [id number] [facility] Zip: [place] [address] Date: 1940 Sex: M Room/Bed: E415-1 Ref Phy: Miley Potts M.D. SC: [email or web address] Att Phy: Leo Berman MD, PhD Report #: [id number] Winsome Phy: Miley Potts M.D. Test: CXR Admit Phy: Steven Tim M.D. Agile Tester: ANDEER Interpreting Phy: Antelmo Howe M.D. Diagnosis: SIRS, UTI Ordering Phy: Kathrin Ibrahim PA-C Service Date: 10/23/16 Admit Date: 10/18/1706/26/17 MNE: [id number] CONF: DICTATED BY: Antelmo Howe M.D.]] CC: Kathrin Ibrahim .WALLY Amy L., M.D. Lin, Daniel Y., MD, PhD Endcc: [~ rep ct add3]] TWO VIEW CHEST CLINICAL HISTORY: Follow-up pneumonia. FINDINGS: AP and lateral chest radiographs are compared to study dated 10/21/2016. The heart is enlarged and there is atherosclerotic calcification of the thoracic aorta. There is prominence of the pulmonary vasculature. Chronic interstitial thickening is unchanged. Perihilar airspace opacities have improved from 10/21/2016. There is no large pleural effusion, or pneumothorax is seen. The skeletal structures are osteopenic. 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 IMPRESSION: 1. Cardiomegaly with prominence of the pulmonary vasculature. Cortical clinically for evidence of mild congestive failure. 2. Perihilar opacities have modestly improved from 10/21/2016. Clinical correlation will be required. Electronically signed by: Antelmo Howe M.D. 10/23/2016 4:12 PM Dictated Date/Time: 10/23/2016 4:09 PM The status of this report is Signed. Draft = Not yet reviewed or approved by Radiologist. Signed = Reviewed and approved by Radiologist. <AttendingPhy>Leo Berman MD, PhD</AttendingPhy> <FamilyPhy>Miley Potts M.D.</FamilyPhy> <PrimaryPhy>Miley Potts M.D.</PrimaryPhy> <UnitNumber> [id number]</UnitNumber> <VisitNumber>[id number]</VisitNumber> <PatientName> JOHAN PANTOJA </PatientName> <DateOfBirth>1940</DateOfBirth> <Location> C.4E</Location> <ServiceDate>10/18/16</ServiceDate> <MNE>ESINDI</MNE> < OrderingPhy>Kathrin Ibrahim PA-C</OrderingPhy> <OrderingPhyMNE>f rep ord dr nelson< /OrderingPhyMNE> <DictatingPhyMNE>f rep dict dr nelson</DictatingPhyMNE> <CCListMNE >f rep ct leslie</CCListMNE> <AdmittingPhyMNE>f pt admit dr nelson</AdmittingPhyMNE> < AttendingPhyMNE>f pt attend dr nelson</AttendingPhyMNE> <ConsultingPhyMNE>f pt consult dr nelson</ConsultingPhyMNE> <FamilyPhyMNE>f pt fam dr nelson</FamilyPhyMNE> <OtherPhyMNE>f pt other dr nelson</OtherPhyMNE> < PrimaryPhyMNE>f pt prim care dr nelson</PrimaryPhyMNE> <ReferringPhyMNE>f pt referring dr nelson</ReferringPhyMNE> Assessment and Plan 76 y/o male with a history of HTN, HLD, cardiomyopathy, chronic systolic CHF, DM II, hypothyroidism, anxiety/depression and GERD who presents with worsening altered mental status. Metabolic encephalopathy due to sepsis with presumed urinary source and bacteremia, recurrent fevers--improving -Admit to telemetry. No acute events overnight. Pt in sinus rhythm with PVCs, HR in the 80s. Stable, transfer to med/surg on 10/23 -CT abdomen and pelvis no acute infectious process. -Repeat CT abdomen and pelvis still no acute infectious process -Blood culture positive for mcpherson-sensitive E. Coli x 1. H/o drug resistant E. Coli -Repeat blood cultures drawn and pending -Urine cultures drawn 10/18 and 10/21 both negative -Afebrile since 10/21 -Infectious disease consulted, appreciate recs: Spoke with Dr. Roberts, can switch imipenem to ertapenem. Will need total of 14 days IV antibiotics. Can d /c azithromycin. -Imipenem d/c'd, switched to ertapenem 1 gm IV qd. Day #7 total of abx -Azithromycin d/c'd -CXR 10/21 had shown interval developemnt of bilateral airspace opacities reflecting pulmonary edema vs infectious process. Pt received 1 dose Lasix 40 mg IV and improved. -Repeat CXR 10/23: perihilar opacities improved from previous study. HTN, cardiomyopathy, chronic systolic CHF--stable -Continue ASA 81 mg PO qd, losartan 50 mg PO qd, and metoprolol succinate 25 mg PO qd -Pulmonary congestion CXR 10/21, received 1 dose Lasix 40 mg IV -Repeat CXR reviewed as above -Echo: * -- Conclusions -- * The left ventricle is mildly dilated. * There is moderate concentric left ventricular hypertrophy. * Left ventricular systolic function is severely reduced. LVEF 25-30% * Grade I diastolic dysfunction, (abnormal relaxation pattern). * There is moderate mitral annular calcification. * There is mild tricuspid regurgitation. * Right ventricular systolic pressure is elevated at 30-40mmHg. * Compared to a study from 04/2016, there is little difference. HLD -Continue gemfibrozil 600 mg PO qd DM II--last HgbA1c checked 10/18/16 was 5.8 -Diet controlled Hypothyroidism -Continue Synthroid 25 g PO qd Anxiety/depression -Continue Zoloft 200 mg PO qd GERD -Continue pantoprazole 40 mg PO qd DVT prophylaxis -Heparin 5000 units SC q12 -SCDs Code Status -Level V, DO NOT RESUSCITATE Dispo -Pt from home -PT/OT evaluated, pt safe to return home with rolling walker -Case management following. Pt will not be able to afford having IV abx at home and will need to come to [facility] daily for treatment
[2016-10-24 15:17] VITALS: BP 145/75; PULSE 72; TEMP 36.5; O2SAT 94
--- NOTE | 2016-10-24 15:34 | Infectious Disease Progress Nt ---
Progress Note Date of Service Oct 24, 2016. Subjective Pt evaluation today including: conversation w/ patient, physical exam, chart review, lab review, review of studies, conversation w/ aws consultant, review of inpatient medication list Still with some abdominal pain, 3/10 in intensity. No fever. Otherwise tolerating ertapenem without apparent difficulty. All Other Systems: Reviewed and Negative Medications Current Inpatient Medications Medications (Trade) Dose Ordered Sig/Raudel Route Start Time Stop Time Status Last Admin Dose Admin Acetaminophen (Tylenol Tab) 650 mg Q4H PRN PO 10/18/16 20:00 11/17/16 19:59 10/22/16 01:12 650 MG Nitroglycerin (Nitrostat Tab) 0.4 mg UD PRN SL 10/18/16 20:00 11/17/16 19:59 Aspirin (Ecotrin Tab) 81 mg QPM PO 10/18/16 21:00 11/17/16 20:59 10/23/16 20:11 81 MG Gemfibrozil (Lopid Tab) 600 mg QAM PO 10/19/16 09:00 11/18/16 08:59 10/24/16 08:52 600 MG Levothyroxine Sodium (Synthroid Tab) 25 mcg DAILYBB PO 10/19/16 06:00 11/18/16 05:59 10/24/16 06:22 25 MCG Metoprolol Succinate (Toprol Xl Tab) 25 mg HS PO 10/18/16 21:00 11/17/16 20:59 10/23/16 20:12 25 MG Multivitamins/ Minerals (Multivitamin W/ Minerals Tab) 1 tab DAILY PO 10/19/16 09:00 11/18/16 08:59 10/24/16 08:52 1 TAB Pantoprazole Sodium (Protonix Tab) 40 mg QAM PO 10/19/16 09:00 11/18/16 08:59 10/24/16 08:52 40 MG Promethazine HCl (Phenergan Tab) 12.5 mg Q6H PRN PO 10/18/16 20:00 11/17/16 19:59 Sertraline HCl (Zoloft Tab) 200 mg QAM PO 10/19/16 09:00 11/18/16 08:59 10/24/16 08:52 200 MG Triamcinolone Acetonide (Kenalog 0.025% Crm) 1 appln DAILY PRN TOP 10/18/16 20:00 11/17/16 19:59 Heparin Sodium (Porcine) (Heparin Sq 5000 Unit/0.5ml) 5,000 unit Q12 SQ 10/20/16 09:00 11/19/16 08:59 10/24/16 08:53 5,000 UNIT Ondansetron HCl (Zofran Inj) 4 mg Q6H PRN IV 10/20/16 12:30 11/19/16 12:29 Ertapenem 1 gm/ Sodium Chloride 50 ml @ 120 mls/hr Q24H IV 10/23/16 14:00 11/06/16 13:59 10/24/16 14:24 120 MLS/HR Objective Vital Signs Date Time Temp Pulse Resp B/P (MAP) Pulse Ox O2 Delivery O2 Flow Rate FiO2 10/24/16 15:17 36.5 72 18 145/75 (98) 94 Room Air 10/24/16 08:16 36.8 79 18 157/83 (107) 98 Room Air 10/24/16 08:16 Room Air 10/24/16 00:10 37.0 79 20 159/80 (106) 94 Room Air 10/23/16 23:30 Room Air 10/23/16 16:10 94 Room Air 10/23/16 16:01 37.2 75 18 156/78 (104) 94 Room Air Physical Exam General Appearance: WD/WN, no apparent distress Eyes: normal inspection, sclerae normal ENT: normal ENT inspection, pharynx normal Neck: supple, no adenopathy, trachea midline Respiratory/Chest: chest non-tender, lungs clear, normal breath sounds, no respiratory distress Cardiovascular: regular rate, rhythm, no gallop, no murmur Abdomen: normal bowel sounds, soft, no organomegaly, + tenderness Extremities: non-tender, no calf tenderness Neurologic/Psychiatric: alert, oriented x 3 Skin: normal color, warm/dry, no rash Lymphatic: no adenopathy Laboratory Results DIAGNOSTIC IMAGING [~ rep ct add3]] TWO VIEW CHEST CLINICAL HISTORY: Follow-up pneumonia. FINDINGS: AP and lateral chest radiographs are compared to study dated 10/21/2016. The heart is enlarged and there is atherosclerotic calcification of the thoracic aorta. There is prominence of the pulmonary vasculature. Chronic interstitial thickening is unchanged. Perihilar airspace opacities have improved from 10/21/2016. There is no large pleural effusion, or pneumothorax is seen. The skeletal structures are osteopenic. 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 IMPRESSION: 1. Cardiomegaly with prominence of the pulmonary vasculature. Cortical clinically for evidence of mild congestive failure. 2. Perihilar opacities have modestly improved from 10/21/2016. Clinical correlation will be required. Electronically signed by: Antelmo Howe M.D. 10/23/2016 4:12 PM Dictated Date/Time: 10/23/2016 4:09 PM The status Assessment and Plan 76-year-old male with Parkinson's and dementia now presents with acute encephalopathy with E coli bacteremia, most likely from urinary source. patient appears to be responding to current antibiotic therapy, and have changed to IV ertapenem 1 gram daily which would provide easier therapy. Would give 14 days total of therapy including the previous therapy with imipenem. Discussed with hospitalist service. Will continue to follow.
[2016-10-24 20:55] VITALS: BP 132/77; PULSE 78
[2016-10-24] MEDS: METOPROLOL SUCC 25MG EXT REL TAB PO SCH (20:55)
[2016-10-24] MEDS: ASPIRIN 81 MG ECTAB PO SCH (20:55)
[2016-10-25] MEDS: LEVOTHYROXINE 25 MCG TAB PO SCH (05:47)
[2016-10-25 06:11] LABS: HEMATOCRIT 28.8 % (42-52); MEAN CELL VOLUME 86.7 fL (80-100); MEAN CORPUSCULAR HEMOGLOBIN 28.9 pg (25-34); MEAN CORPUSCULAR HGB CONC 33.3 g/dl (32-36); MEAN PLATELET VOLUME 9.2 fL (7.4-10.4); PLATELET COUNT 363 K/uL (130-400); RED BLOOD COUNT 3.32 M/uL (4.7-6.1); WHITE BLOOD COUNT 10.21 K/uL (4.8-10.8)
[2016-10-25 06:46] LABS: BUN/CREATININE RATIO 21.2 (10-20); CALCIUM 9.1 mg/dl (8.5-10.1); CREATININE 1.1 mg/dl (0.60-1.40); POTASSIUM 4.2 mmol/L (3.5-5.1)
[2016-10-25] MEDS: GEMFIBROZIL 600 MG TAB PO SCH (07:33)
[2016-10-25] MEDS: PANTOprazole SOD 40 MG TAB PO SCH (07:33)
[2016-10-25] MEDS: CEROVITE ADV FORMULA TAB PO SCH (07:33)
[2016-10-25] MEDS: SERTRALINE HCL 100 MG TAB PO SCH (07:34)
[2016-10-25] MEDS: HEPARIN SOD 5000 UNIT/0.5 ML CARP SQ SCH (07:36)
[2016-10-25] MEDS: ACETAMINOPHEN 325 MG TAB PO PRN (07:36)
[2016-10-25 07:43] VITALS: BP 171/75; PULSE 76; TEMP 36.8; O2SAT 98
[2016-10-25] MEDS ORDERED: LOSARTAN POTASSIUM 50 MG TAB PO SCH (08:00)
[2016-10-25 08:47] VITALS: BP 134/79; PULSE 71
[2016-10-25] MEDS: ERTAPENEM IV 1 GM in SODIUM CHLOR 0.9% AD-VAN 50ML 50 ML IV SCH (14:03)
[2016-10-25] MEDS ORDERED: ERTA1INJ IV (14:24)
[2016-10-25 14:31] VITALS: BP 134/79; PULSE 71; TEMP 36.8; O2SAT 98
--- NOTE | 2016-10-25 14:34 | Discharge Instructions ---
Discharge Instructions Date of Service Oct 25, 2016. Admission Reason for Admission: Sirs, Uti Discharge Discharge Diagnosis / Problem: Sepsis with presumed urinary source, bacteremia Discharge Goals Goal(s): Decrease discomfort, Improve function, Diagnostic testing, Therapeutic intervention Activity Recommendations Activity Limitations: resume your previous activity (as tolerated) . Instructions / Follow-Up Instructions / Follow-Up You were admitted to the hospital with altered mental status. You were found to be septic with a severe infection, presumably a urinary tract infection. Your urine cultures were negative, but your blood had been positive with E. coli , which is a bacteria typically found in the urine. Your mental status did return to baseline and your fevers resolved after receiving IV antibiotics for a urinary tract infection. Your repeat blood cultures are now negative and you are stable for discharge to home. Medications: *You will need to come to [facility] at the hospital to receive your daily IV antibiotic dose. You are taking ertapenem 1 gram IV each day. You have 6 days of antibiotics remaining. *STOP the ciprofloxacin (Cipro) that you had been taking as an outpatient. *Continue your other home medications. Follow up: *You will be scheduled for a follow up appointment with your primary care provider regarding your hospital stay. *Please follow up with Dr. Roberts of infectious disease in 1-2 weeks. Please seek medical attention if you experience fevers, chills, sweats, dizziness/lightheadedness, loss of consciousness, chest pain, shortness of breath, nausea, vomiting, numbness or tingling. Current Hospital Diet Patient's current hospital diet: AHA Diet (Heart Healthy), Diabetes Type 2 Diet Discharge Diet Recommended Diet: AHA Diet (Heart Healthy), Diabetes Type 2 Diet Procedures Procedures Performed: Echocardiogram Pending Studies Studies pending at discharge: yes List of pending studies: Finalized blood cultures. Preliminary reports are negative. Laboratory Results Hemoglobin A1c Test 10/18/16 17:37 Range/Units Estimated Average Glucose 120 mg/dl Hemoglobin A1c 5.8 H 4.5-5.6 % Medical Emergencies . Who to Call and When: Medical Emergencies: If at any time you feel your situation is an emergency, please call 911 immediately. . Non-Emergent Contact Non-Emergency issues call your: Primary Care Provider Call Non-Emergent contact if: you have a fever, you have any medication questions . Past History Medical & Surgical History: (1) Sepsis (2) Altered mental status (3) UTI (urinary tract infection) . "Provider Documentation" section prepared by Kathrin Ibrahim. . VTE Core Measure Inpt VTE Proph given/why not?: Unfractionated heparin SQ, SCD's
--- NOTE | 2016-10-25 14:40 | Infectious Disease Progress Nt ---
Progress Note Date of Service Oct 25, 2016. Subjective Pt evaluation today including: conversation w/ patient, physical exam, chart review, lab review, review of studies, conversation w/ cloud consultant, review of inpatient medication list Offers no new complaints today. Remains afebrile. Outpatient antibiotics arranged. All Other Systems: Reviewed and Negative Medications Current Inpatient Medications Medications (Trade) Dose Ordered Sig/Raudel Route Start Time Stop Time Status Last Admin Dose Admin Acetaminophen (Tylenol Tab) 650 mg Q4H PRN PO 10/18/16 20:00 11/17/16 19:59 10/25/16 07:36 650 MG Nitroglycerin (Nitrostat Tab) 0.4 mg UD PRN SL 10/18/16 20:00 11/17/16 19:59 Aspirin (Ecotrin Tab) 81 mg QPM PO 10/18/16 21:00 11/17/16 20:59 10/24/16 20:55 81 MG Gemfibrozil (Lopid Tab) 600 mg QAM PO 10/19/16 09:00 11/18/16 08:59 10/25/16 07:33 600 MG Levothyroxine Sodium (Synthroid Tab) 25 mcg DAILYBB PO 10/19/16 06:00 11/18/16 05:59 10/25/16 05:47 25 MCG Metoprolol Succinate (Toprol Xl Tab) 25 mg HS PO 10/18/16 21:00 11/17/16 20:59 10/24/16 20:55 25 MG Multivitamins/ Minerals (Multivitamin W/ Minerals Tab) 1 tab DAILY PO 10/19/16 09:00 11/18/16 08:59 10/25/16 07:33 1 TAB Pantoprazole Sodium (Protonix Tab) 40 mg QAM PO 10/19/16 09:00 11/18/16 08:59 10/25/16 07:33 40 MG Promethazine HCl (Phenergan Tab) 12.5 mg Q6H PRN PO 10/18/16 20:00 11/17/16 19:59 Sertraline HCl (Zoloft Tab) 200 mg QAM PO 10/19/16 09:00 11/18/16 08:59 10/25/16 07:34 200 MG Triamcinolone Acetonide (Kenalog 0.025% Crm) 1 appln DAILY PRN TOP 10/18/16 20:00 11/17/16 19:59 Heparin Sodium (Porcine) (Heparin Sq 5000 Unit/0.5ml) 5,000 unit Q12 SQ 10/20/16 09:00 11/19/16 08:59 10/25/16 07:36 5,000 UNIT Ondansetron HCl (Zofran Inj) 4 mg Q6H PRN IV 10/20/16 12:30 11/19/16 12:29 Ertapenem 1 gm/ Sodium Chloride 50 ml @ 120 mls/hr Q24H IV 10/23/16 14:00 11/06/16 13:59 10/25/16 14:03 120 MLS/HR Losartan Potassium (coZAAR TAB) 50 mg DAILY PO 10/25/16 08:00 11/24/16 07:59 10/25/16 07:33 50 MG Objective Vital Signs Date Time Temp Pulse Resp B/P (MAP) Pulse Ox O2 Delivery O2 Flow Rate FiO2 10/25/16 14:31 36.8 71 18 98 Room Air 10/25/16 08:47 71 134/79 (97) 10/25/16 08:00 Room Air 10/25/16 07:43 36.8 76 18 171/75 (107) 98 10/25/16 00:00 Room Air 10/24/16 20:55 78 132/77 (95) 10/24/16 16:00 Room Air 10/24/16 15:17 36.5 72 18 145/75 (98) 94 Room Air Physical Exam General Appearance: WD/WN, no apparent distress Eyes: normal inspection, sclerae normal ENT: normal ENT inspection, pharynx normal Neck: supple, no adenopathy, trachea midline Respiratory/Chest: chest non-tender, lungs clear, normal breath sounds, no respiratory distress Cardiovascular: regular rate, rhythm, no gallop, no murmur Abdomen: normal bowel sounds, non tender, soft, no organomegaly Extremities: non-tender, no calf tenderness Neurologic/Psychiatric: alert, oriented x 3 Skin: normal color, no rash Lymphatic: no adenopathy Laboratory Results Last 24 Hours Test 10/25/16 05:37 White Blood Count 10.21 K/uL Red Blood Count 3.32 M/uL Hemoglobin 9.6 g/dL Hematocrit 28.8 % Mean Corpuscular Volume 86.7 fL Mean Corpuscular Hemoglobin 28.9 pg Mean Corpuscular Hemoglobin Concent 33.3 g/dl RDW Standard Deviation 45.5 fL RDW Coefficient of Variation 14.5 % Platelet Count 363 K/uL Mean Platelet Volume 9.2 fL Sodium Level 141 mmol/L Potassium Level 4.2 mmol/L Chloride Level 110 mmol/L Carbon Dioxide Level 23 mmol/L Anion Gap 8.0 mmol/L Blood Urea Nitrogen 23 mg/dl Creatinine 1.10 mg/dl Est Creatinine Clear Calc Drug Dose 63.3 ml/min Estimated GFR () 74.7 Estimated GFR (Non- 64.4 BUN/Creatinine Ratio 21.2 Random Glucose 97 mg/dl Calcium Level 9.1 mg/dl Assessment and Plan 76-year-old male with Parkinson's and dementia now presents with acute encephalopathy with E coli bacteremia, most likely from urinary source. patient appears to be responding to current antibiotic therapy, and have changed to IV ertapenem 1 gram daily which would provide easier therapy. Would give 14 days total of therapy including the previous therapy with imipenem. Discussed with hospitalist service. Will continue to follow.
--- NOTE | 2016-10-25 14:41 | Discharge Summary ---
Discharge Summary Date of Service Oct 25, 2016. Discharge Summary Admission Date: Oct 18, 2016 at 19:58 Discharge Date: Oct 25, 2016 Discharge Disposition: Home with services Principal Diagnosis: Sepsis, bacteremia Immunizations: Have You Had Influenza Vaccine: Unknown History of Tetanus Vaccine?: Unknown History of Pneumococcal: Unknown History of Hepatitis B Vaccine: Unknown Procedures: Echocardiogram: Interpretation Summary * Name: JOHAN PANTOJA SR Study Date: 10/22/2016 01:36 PM BP: 138/73 mmHg * Patient Location: [facility]\S\S242\S\2 HR: 83 * : 1940 (M/d/yyyy) Gender: Male Height: 70 in * Age: 76 yrs Ethnicity: CA Weight: 205 lb * Ordering Physician: Bjorn Govea * Referring Physician: Self, Referred * Performed By: Miley Jensen RCS * * Reason For Study: CHF / ? VEG * BSA: 2.1 m2 * There is no evidence of a mass or vegetation. This does not rule out endocarditis. * -- Conclusions -- * The left ventricle is mildly dilated. * There is moderate concentric left ventricular hypertrophy. * Left ventricular systolic function is severely reduced. * Grade I diastolic dysfunction, (abnormal relaxation pattern). * There is moderate mitral annular calcification. * There is mild tricuspid regurgitation. * Right ventricular systolic pressure is elevated at 30-40mmHg. * Compared to a study from 04/2016, there is little difference. Procedure Details * A complete two-dimensional transthoracic echocardiogram was performed (2D, M- mode, Doppler and color flow Doppler). * A contrast injection of Definity was performed to improve assessment of LV function. * Contrast was injected into an intravenous site in the right arm. * One vial of Definity ultrasound contrast was diluted in normal saline to a total volume of 10 ml. A total of '2' ml of solution was administered during imaging. * Lot # [id number] of Definity utilized for procedure. * Expiration date 1 NOV 10. * The attending nurse who injected the contrast agent was ELSIE LAKHANI, RN. Left Ventricle * The left ventricle is mildly dilated. * There is moderate concentric left ventricular hypertrophy. * Left ventricular systolic function is severely reduced. * Ejection Fraction = 25-30%. * Grade I diastolic dysfunction, (abnormal relaxation pattern). * GLobal hypokinesis with akinesis of the apex. Right Ventricle * The right ventricle is normal in size and function. Atria * The left atrial size is normal. * Right atrial size is normal. Mitral Valve * There is moderate mitral annular calcification. * Significant mitral regurgitation is absent. Tricuspid Valve * The tricuspid valve is not well visualized. * There is mild tricuspid regurgitation. * Right ventricular systolic pressure is elevated at 30-40mmHg. Aortic Valve * The aortic valve is normal in structure and function. * No hemodynamically significant valvular aortic stenosis. * There is no significant aortic regurgitation. Great Vessels * The aortic root is normal size. Pericardium/Pleural * There is no pericardial effusion. Great Vessels * Normal inferior vena cava size and collapsability with sniff indicates a normal right atrial pressure of 3 mmHg Consultations: Infectious disease--Dr. Roberts Medication Reconciliation New Medications: Ertapenem Sodium (Invanz) 1 Gm Inj 1 GM IV Q24H for 6 Days, #6 DOSE Continued Medications: Aspirin (Aspirin Ec) 81 Mg Tab 81 MG PO QPM Cranberry (Vaccinium Macrocarp (Cranberry) 600 Mg Tab 600 MG PO QPM Furosemide (Lasix) 20 Mg Tab 20 MG PO BID, TAB Gemfibrozil (Lopid) 600 Mg Tab 600 MG PO QAM, TAB Levothyroxine Sodium (Levothyroxine Sodium) 25 Mcg Tab 25 MCG PO DAILY for 90 Days, #90 TAB 3 Refills Losartan Potassium (Cozaar) 50 Mg Tab 50 MG PO DAILY, TAB Metoprolol Succinate (Toprol Xl) 25 Mg Tabcr 25 MG PO HS, #30 TAB Multiple Vitamins W/ Minerals (Centrum Silver Adult 50+) 1 Tab Tab 1 TAB PO DAILY Pantoprazole (Pantoprazole Sodium) 40 Mg Tab 40 MG PO QAM for 14 Days, #14 TAB Promethazine (Phenergan ) 12.5 Mg Tab 12.5 MG PO Q6H PRN for Nausea or Vomiting, TAB Sertraline HCl (Sertraline HCl) 100 Mg Tab 200 MG PO QAM Triamcinolone (Triamcinolone Acetonide) 60 Appln/60 Ml Lotn 1 APPLN TOP DAILY PRN for Itching Discontinued Medications: Ciprofloxacin (Ciprofloxacin HCl) 500 Mg Tab 500 MG PO BID Referrals At Discharge Follow up Referrals: Infectious Disease - Within 1-2 Weeks with Travis Roberts MD Discharge Exam Patient reports feeling well. He denies any complaints currently. His Soriano catheter was removed and he has been voiding without difficulties. The patient denies fevers, chills, sweats, chest pain, palpitations, claudication, cough, wheezing, shortness of breath, nausea, vomiting, abdominal pain, dysuria, hematuria, urinary retention, paralysis, weakness, numbness and tingling. Review of Systems: Constitutional: No fever, No chills, No sweats Eyes: No worsening of vision, No redness, No diplopia ENT: No hearing loss, No sore throat, No trouble swallowing Respiratory: No cough, No wheezing, No shortness of breath Cardiovascular: No chest pain, No claudication, No palpitations Abdomen: No pain, No nausea, No vomiting Musculoskeletal: No joint pain, No muscle pain, No calf pain Genitourinary - Male: No hematuria, No dysuria, No urinary retention Neurologic: No paralysis, No weakness, No numbness/tingling Integumentary: No rash, No itch, No color change Physical Exam: General Appearance: WD/WN, no apparent distress Eyes: normal inspection, PERRL, EOMI ENT: normal ENT inspection, hearing grossly normal, pharynx normal Neck: supple, no JVD, trachea midline Respiratory/Chest: lungs clear, normal breath sounds, no respiratory distress Cardiovascular: regular rate, rhythm, no gallop, no murmur Abdomen / GI: normal bowel sounds, non tender, soft Extremities: normal inspection, no calf tenderness, no pedal edema Neurologic/Psychiatric: alert, normal mood/affect, oriented x 3 Skin: normal color, warm/dry, no rash Hospital Course 76 y/o male with a history of HTN, HLD, cardiomyopathy, chronic systolic CHF, DM II, hypothyroidism, anxiety/depression and GERD who presents with worsening altered mental status. Metabolic encephalopathy due to sepsis with presumed urinary source and bacteremia, recurrent fevers--improving. Encephalopathy resolved. -Admit to telemetry. No acute events overnight. Pt in sinus rhythm with PVCs, HR in the 80s. Stable, transfer to med/surg on 10/23 -CT abdomen and pelvis no acute infectious process. -Repeat CT abdomen and pelvis still no acute infectious process -Blood culture positive for mcpherson-sensitive E. Coli x 1. H/o drug resistant E. Coli -Repeat blood cultures no growth to date x 2 -Urine cultures drawn 10/18 and 10/21 both negative -Afebrile since 10/21 -Infectious disease consulted, appreciate recs: Spoke with Dr. Roberts, can switch imipenem to ertapenem. Will need total of 14 days IV antibiotics. Can d /c azithromycin. -Imipenem d/c'd, switched to ertapenem 1 gm IV qd. Day #8 total of abx. 6 doses remaining which pt will receive through [facility]. PICC line in place, 10/25 dose of abx given through PICC while still inpatient -Azithromycin d/c'd -CXR 10/21 had shown interval developemnt of bilateral airspace opacities reflecting pulmonary edema vs infectious process. Pt received 1 dose Lasix 40 mg IV and improved. -Repeat CXR 10/23: perihilar opacities improved from previous study. -Soriano removed, pt voiding on his own. Pt voiding completely, confirmed with post void bladder scan HTN, cardiomyopathy, chronic systolic CHF--stable -Continue ASA 81 mg PO qd, losartan 50 mg PO qd, metoprolol succinate 25 mg PO qd and Lasix 20 mg PO BID -Pulmonary congestion CXR 10/21, received 1 dose Lasix 40 mg IV -Repeat CXR reviewed as above -Echo: * -- Conclusions -- * The left ventricle is mildly dilated. * There is moderate concentric left ventricular hypertrophy. * Left ventricular systolic function is severely reduced. LVEF 25-30% * Grade I diastolic dysfunction, (abnormal relaxation pattern). * There is moderate mitral annular calcification. * There is mild tricuspid regurgitation. * Right ventricular systolic pressure is elevated at 30-40mmHg. * Compared to a study from 04/2016, there is little difference. HLD -Continue gemfibrozil 600 mg PO qd DM II--last HgbA1c checked 10/18/16 was 5.8 -Diet controlled Hypothyroidism -Continue Synthroid 25 g PO qd Anxiety/depression -Continue Zoloft 200 mg PO qd GERD -Continue pantoprazole 40 mg PO qd DVT prophylaxis -Heparin 5000 units SC q12 -SCDs Code Status -Level V, DO NOT RESUSCITATE Dispo -Pt from home -PT/OT evaluated, pt safe to return home with rolling walker -Case management following. Pt will not be able to afford having IV abx at home and will need to come to [facility] daily for treatment Total Time Spent: Greater than 30 minutes This includes examination of the patient, discharge planning, medication reconciliation, and communication with other providers. Discharge Instructions Please refer to the electronic Patient Visit Report (Discharge Instructions) for additional information. Additional Copies To Miley Potts M.D.
[2016-10-25 15:23] VITALS: BP 132/76; PULSE 71; TEMP 36.6; O2SAT 96
[2016-10-26] MEDS ORDERED: PANT40TA PO (08:17)
[2016-10-26] MEDS ORDERED: ERTA1INJ IV (08:17)
== END 2016-10-25 16:46 | disposition home or self-care (01) | DRG 871 ==
LOC: EDBD 17:15 → C.EDB 17:16 → C.2T 19:58 → ENRESERV 20:07 → C.4E 10-23 14:06 → ENRESERV 10-23 14:23
PROVIDERS: ADMIT Hospitalist; ATTEND Hospitalist
PROC: 05HB33Z Insertion of Infusion Device into Right Basilic Vein, Percutaneous Approach (ICD-10-PCS; principal; 2016-10-25)
DX: A41.52 Sepsis due to Pseudomonas (principal); G93.41 Metabolic encephalopathy; N39.0 Urinary tract infection, site not specified; E11.9 Type 2 diabetes mellitus without complications; I11.9 Hypertensive heart disease without heart failure; I25.10 Atherosclerotic heart disease of native coronary artery without angina pectoris; E03.9 Hypothyroidism, unspecified; K21.9 Gastro-esophageal reflux disease without esophagitis; F32.9 Major depressive disorder, single episode, unspecified; F41.9 Anxiety disorder, unspecified; G31.83 Neurocognitive disorder with Lewy bodies; F02.80 Dementia in other diseases classified elsewhere, unspecified severity, without behavioral disturbance, psychotic disturbance, mood disturbance, and anxiety; E66.9 Obesity, unspecified; Z51.81 Encounter for therapeutic drug level monitoring; Z79.899 Other long term (current) drug therapy; Z79.82 Long term (current) use of aspirin; Z66 Do not resuscitate; Z87.440 Personal history of urinary (tract) infections; Z68.28 Body mass index [BMI] 28.0-28.9, adult; Z82.5 Family history of asthma and other chronic lower respiratory diseases

== ENCOUNTER 2017-01-27 13:21 | Inpatient (IN) | payer OTHER, BC ==
[~2017-01-27] VITALS: Ht 177.8 cm; Wt 90.1 kg
[~2017-01-27 13:21] MED LIST changes: -CRAN1CAP13 PO; +CRAN1TAB6 PO; +ERTA1INJ IV; +FURO-85 PO; +LEVO25TA5 PO; -LOSA100T65 PO; +LOSA50TA6 PO; +METO25TA3 PO; +PANT40TA PO; -PRD20 PO; +PROM12.57 PO; -PRT40 PO; -SYN50 PO; +TRML160 TOP; -ZNTT/150 PO
[2017-01-27] MEDS ORDERED: ONDANSETRON INJ 2 MG/ML 2 ML VIAL IV STA (13:35)
[2017-01-27] MEDS ORDERED: MoRPHine SULFATE 4 MG/ML 1 ML CARP\\VIAL IV STA (13:35)
[2017-01-27 14:12] LABS: BASO % 0.4 %; BASO ABS # 0.03 K/uL (0-0.2); COMPLETE YES; EOS % 2.6 %; HEMATOCRIT 33.4 % (42-52); IG% 0.3 %; LYMPH ABS # 0.99 K/uL (1.2-3.4); MEAN CELL VOLUME 85.2 fL (80-100); MEAN CORPUSCULAR HEMOGLOBIN 28.6 pg (25-34); MEAN CORPUSCULAR HGB CONC 33.5 g/dl (32-36); MEAN PLATELET VOLUME 9.5 fL (7.4-10.4); MONO % 6.2 %; NEUT % 77.5 %; PLATELET COUNT 221 K/uL (130-400); RED BLOOD COUNT 3.92 M/uL (4.7-6.1); WHITE BLOOD COUNT 7.61 K/uL (4.8-10.8)
[2017-01-27 14:31] LABS: BUN/CREATININE RATIO 22.7 (10-20); CALCIUM 9.4 mg/dl (8.5-10.1); CREATININE 1.35 mg/dl (0.60-1.40); POTASSIUM 4.4 mmol/L (3.5-5.1)
[2017-01-27 14:48] LABS: INR 1.1 (0.9-1.1); PROTHROMBIN TIME (PATIENT) 11.4 SECONDS (9.0-12.0)
--- NOTE | 2017-01-27 14:50 | DIAGNOSTIC IMAGING REPORT ---
ABDOMEN 2VIEW W/PA CHEST RTN CLINICAL HISTORY: Abdominal pain. Possible bowel obstruction COMPARISON STUDY: Chest x-ray dated 10/23/2016 FINDINGS: The heart is enlarged. There is no focal pulmonary consolidation. There is no free intraperitoneal air. Erect and supine views the abdomen reveal mildly dilated small bowel loops measuring up to 41 mm in diameter. There are multiple small bowel air-fluid levels. There is a possibility of colonic gas. The findings are consistent with a small bowel obstruction. IMPRESSION: Small bowel obstructive pattern. No free air identified. Electronically signed by: Buddy Rodríguez M.D. 01/27/2017 2:49 PM Dictated Date/Time: 01/27/2017 2:48 PM
[2017-01-27] MEDS ORDERED: MoRPHine SULFATE 4 MG/ML 1 ML CARP\\VIAL IV PRN (15:00)
[2017-01-27] MEDS ORDERED: MoRPHine SULFATE 2 MG/ML CARP IV PRN (15:00)
[2017-01-27] MEDS ORDERED: ONDANSETRON INJ 2 MG/ML 2 ML VIAL IV PRN (15:00)
--- NOTE | 2017-01-27 15:22 | History and Physical ---
History & Physical Date & Time of Service: Jan 27, 2017 at 15:17 Chief Complaint: Chest Pain Primary Care Physician: Miley Potts M.D. Past Medical/Surgical History Medical Problems: (1) Heart disease Status: Chronic (2) HTN (hypertension) Status: Chronic (3) SBO (small bowel obstruction) Status: Resolved Family History FH: COPD (chronic obstructive pulmonary disease) Social History Smoking Status: Never Smoker Drug Use: none Marital Status: Housing status: lives with family Occupational Status: retired Immunizations History of Influenza Vaccine: Unknown History of Tetanus Vaccine?: Unknown History of Pneumococcal: Unknown History of Hepatitis B Vaccine: Unknown Multi-Drug Resistant Organisms History of MDRO: No Allergies Coded Allergies: No Known Allergies (Unverified , 01/27/17) Home Medications Scheduled Aspirin (Aspirin Ec), 81 MG PO QPM Cranberry (Vaccinium Macrocarp (Cranberry), 600 MG PO QPM Furosemide (Lasix), 20 MG PO BID Gemfibrozil (Lopid), 600 MG PO QAM Levothyroxine Sodium (Levothyroxine Sodium), 25 MCG PO DAILY Losartan Potassium (Cozaar), 50 MG PO DAILY Metoprolol Succinate (Toprol Xl), 25 MG PO HS Multiple Vitamins W/ Minerals (Centrum Silver Adult 50+), 1 TAB PO DAILY Pantoprazole (Protonix), 40 MG PO DAILY Sertraline HCl (Sertraline HCl), 200 MG PO QAM Scheduled PRN Promethazine (Phenergan ), 12.5 MG PO Q6H PRN for Nausea or Vomiting Triamcinolone (Triamcinolone Acetonide), 1 APPLN TOP DAILY PRN for Itching Physical Exam Vital Signs Date Time Temp Pulse Resp B/P (MAP) Pulse Ox O2 Delivery O2 Flow Rate FiO2 01/27/17 15:07 54 01/27/17 14:54 57 20 151/74 94 Room Air 01/27/17 13:24 36.4 68 18 141/75 98 Room Air Diagnostics Laboratory Results Results Past 24 Hours Test 01/27/17 14:04 Range/Units White Blood Count 7.61 4.8-10.8 K/uL Red Blood Count 3.92 4.7-6.1 M/uL Hemoglobin 11.2 14.0-18.0 g/dL Hematocrit 33.4 42-52 % Mean Corpuscular Volume 85.2 80-100 fL Mean Corpuscular Hemoglobin 28.6 25-34 pg Mean Corpuscular Hemoglobin Concent 33.5 32-36 g/dl Platelet Count 221 130-400 K/uL Mean Platelet Volume 9.5 7.4-10.4 fL Neutrophils (%) (Auto) 77.5 % Lymphocytes (%) (Auto) 13.0 % Monocytes (%) (Auto) 6.2 % Eosinophils (%) (Auto) 2.6 % Basophils (%) (Auto) 0.4 % Neutrophils # (Auto) 5.90 1.4-6.5 K/uL Lymphocytes # (Auto) 0.99 1.2-3.4 K/uL Monocytes # (Auto) 0.47 0.11-0.59 K/uL Eosinophils # (Auto) 0.20 0-0.5 K/uL Basophils # (Auto) 0.03 0-0.2 K/uL RDW Standard Deviation 50.8 36.4-46.3 fL RDW Coefficient of Variation 16.3 11.5-14.5 % Immature Granulocyte % (Auto) 0.3 % Immature Granulocyte # (Auto) 0.02 0.00-0.02 K/uL Prothrombin Time 11.4 9.0-12.0 SECONDS Prothromb Time International Ratio 1.1 0.9-1.1 Activated Partial Thromboplast Time 25.0 21.0-31.0 SECONDS Partial Thromboplastin Ratio 1.0 Sodium Level 140 136-145 mmol/L Potassium Level 4.4 3.5-5.1 mmol/L Chloride Level 106 98-107 mmol/L Carbon Dioxide Level 26 21-32 mmol/L Anion Gap 7.0 3-11 mmol/L Blood Urea Nitrogen 31 7-18 mg/dl Creatinine 1.35 0.60-1.40 mg/dl Est Creatinine Clear Calc Drug Dose 51.7 ml/min Estimated GFR () 58.3 Estimated GFR (Non- 50.3 BUN/Creatinine Ratio 22.7 10-20 Random Glucose 142 70-99 mg/dl Calcium Level 9.4 8.5-10.1 mg/dl Total Bilirubin 0.5 0.2-1 mg/dl Direct Bilirubin 0.2 0-0.2 mg/dl Aspartate Amino Transf (AST/SGOT) 65 15-37 U/L Alanine Aminotransferase (ALT/SGPT) 43 12-78 U/L Alkaline Phosphatase 69 45-117 U/L Troponin I 0.034 0-0.045 ng/ml Total Protein 7.6 6.4-8.2 gm/dl Albumin 3.5 3.4-5.0 gm/dl Lipase 324 73-393 U/L Impression Assessment and Plan admit #[id number] VTE Prophylaxis VTE Risk Assessment Done? Y/N: Yes Risk Level: Moderate
--- NOTE | 2017-01-27 15:49 | HISTORY & PHYSICAL EXAMINATION ---
DATE OF ADMISSION: 01/27/2017 CHIEF COMPLAINT: Abdominal pain. HISTORY OF PRESENT ILLNESS: The patient is a very pleasant 76-year-old male with what sounds to be mild progressing towards moderate Alzheimers' so history is obtained partly from the patient and in large part from his . He was in his usual state of health until yesterday. She noted he was starting to take more gas medicines and unfortunately she notes that is often what he starts to do whenever he is working towards a small-bowel obstruction. He has had 3 or 4 of these in the not too distant past and then this morning he was having a lot more abdominal pain. She noticed his belly was distended. He was having some retching. He has not formally vomited, but he was having dry heaves and she felt that this was looking very reminiscent of his prior bowel obstruction and so she brought him here to the ER for further evaluation. Here he had findings consistent with small-bowel obstruction, we were asked to see him for further evaluation and treatment. Incidentally, he had an EKG with some flipped Ts in 1 and aVL. This was done because of question of chest pain whenever he first was being evaluated in triage. However, he denies chest pain or shortness of breath. His denies seeing him look like he had chest pain or shortness of breath. She does note that he looked a little bit ulloa and ashen, but now his color is better. REVIEW OF SYSTEMS: Otherwise negative, except for as above. PAST MEDICAL HISTORY: Includes recurrent small bowel obstructions, dementia, cardiomyopathy with an EF of about 30%, hypertension, sleep apnea, CKD, GERD and a prior TIA. PAST SURGICAL HISTORY: Includes rectal surgery, urethral stricture, tonsillectomy and colonoscopies. FAMILY HISTORY: Mother had breast cancer. SOCIAL HISTORY: He does not smoke. He is and lives with his . She is very supportive. ALLERGIES: No known drug allergies. MEDICATIONS: Are noted to be aspirin 81 mg daily, cranberry 600 mg in the evening, Lasix 20 mg b.i.d., Lopid 600 mg daily, Synthroid 25 mcg daily, Cozaar 50 mg daily, metoprolol XL 25 mg at bedtime, multivitamin daily, Protonix 40 mg daily, Phenergan 12.5 mg q. 6 hours p.r.n. nausea, Zoloft 200 mg daily, and triamcinolone cream p.r.n. itching. PHYSICAL EXAMINATION: VITAL SIGNS: Temp 36.4, pulse 68, respiratory rate 18, blood pressure 141/75, he is 98% on room air. GENERAL: He is awake, alert, oriented, seems to be easily confused but it sounds like that is his baseline. He is in no acute distress. HEAD, EYES, EARS, NOSE, AND THROAT: Normocephalic, atraumatic. Mucous membranes are moist. Dentition is somewhat poor. CARDIOVASCULAR: Regular without rubs, murmurs, or gallops. LUNGS: Clear to auscultation bilaterally. No rales, rhonchi, or wheezes. Good effort. ABDOMEN: Soft, but moderately distended. He does have diffuse tenderness, worse in the periumbilical area, a little bit of voluntary guarding. Certainly no involuntary guarding. No rebound, no rigidity, no masses or organomegaly. EXTREMITIES: Without cyanosis, clubbing or edema. No calf tenderness. SKIN: Shows no rashes, no pallor or icterus. NEUROLOGIC: Shows cranial nerves II-XII to be grossly intact. Gross motor and sensory are intact. MUSCULOSKELETAL: Yields no gross lesions. MENTAL STATE: Shows fair to poor recent and remote recall. Normal mood and affect. Difficult to assess judgment and insight. LABORATORY AND DIAGNOSTICS: CBC shows a white count of 7.61, hemoglobin 11.2, platelets 221. Complete metabolic panel with sodium 140, potassium 4.4, chloride 106, CO2 26, BUN 31, creatinine 1.35, calcium 9.4, glucose 142. Total bili 0.5 with a direct of 0.2, AST 65, ALT 43, alk phos 69. Troponin of 0.034. Total protein 7.6, albumin 3.5, lipase 324. PT of 11.4, PTT 25. Chest and abdomen x-ray showing heart to be enlarged, no focal pulmonary consolidation, no free air. Erect supine views of the abdomen revealed mildly dilated loops of bowel measuring up 41 mm in diameter. Multiple small bowel air fluid levels, possibility of colonic gas. Findings consistent with a small-bowel obstruction. His EKG shows flipped Ts in 1 and aVL that are not present in every prior EKG, but he occasionally does seem to show trending towards that morphology on prior EKGs. ASSESSMENT AND PLAN: 1. Small-bowel obstruction, likely adhesional in nature. Unfortunately, it has been recurrent. Fortunately, he does not appear overtly in distress with this. A dose of pain medicines and being n.p.o. seems to have helped with his pain, nausea, and vomiting. He and his both note that previous placement of NG tube was extremely traumatic. He apparently has some sort of nasal deviation that makes it even harder and given that he is not looking in extreme distress, he does not have extremely dilated loops of bowel, he is not having intractable pain or nausea and vomiting, will continue with conservative care, but would hold on NG tube unless he shows any of the above noted findings. Will hydrate him with IV fluids, follow serial exams. We will consult surgery for safety sake in case he were to deteriorate, but I expect this will resolve with conservative management. 2. Abnormal EKG. Shows no cardiac signs or symptoms. We will follow serial EKGs and serial troponins, but he, his and I all feel that his symptoms seem to be entirely related to his gastrointestinal process. 3. Dementia. Supportive care. 4. Coronary disease with reduced ejection fraction. Once he is able to will resume home meds. Currently everything appears compensated and the risks of utilizing IV conversions probably outweigh the benefits of simply watchful waiting as I anticipate he is likely to be able to resume his home meds by maybe as soon as tomorrow. 5. Deep venous thrombosis prophylaxis, Lovenox. 6. Mildly elevated AST, outpatient followup. 7. Mild nonfasting hyperglycemia. Outpatient followup. 8. Mild anemia. Outpatient followup.
--- NOTE | 2017-01-27 16:35 | EMERGENCY ROOM VISIT NOTE ---
History Report prepared by [employer]: Chiquita Nino Under the Supervision of: Dr. Bjorn Zamarripa M.D. First contact with patient: 13:28 Chief Complaint: ABDOMINAL PAIN Stated Complaint: abdominal pain Nursing Triage Summary: hx of blocked bowel. needs to have xray. pain is intense at times. this has happened 3 times in the past. had bowel movement this morning, and is able to "pass gas" History of Present Illness The patient is a 76 year old male who presents to the Emergency Room with complaints of abdominal pain beginning at 12am. The patient states that this pain is sharp and constant. He has a history of blocked bowels but states that this does not feel like one of those episodes. His disagrees and states that he is presenting just like she did with his previous 3 bowel obstructions. His last bowel obstruction was in 2014. It was treated conservatively. He denies any fever, vomiting, or chest pain. The patient's last bowel movement was at noon today and states it was small. The patient has a history of CHF and Alzheimer disease. Source of History: patient Onset: midnight Position: abdomen Symptom Intensity: moderate Quality: sharp Timing: constant Associated Symptoms: No fevers, No chest pain, No vomiting Review of Systems See HPI for pertinent positives & negatives. A total of 10 systems reviewed and were otherwise negative. Past Medical & Surgical Medical Problems: (1) Chest pain at rest (2) Heart disease (3) HTN (hypertension) (4) Pneumonia (5) SBO (small bowel obstruction) (6) Seizure-like activity (7) Shortness of breath (8) SIRS (systemic inflammatory response syndrome) (9) UTI (urinary tract infection) Family History FH: COPD (chronic obstructive pulmonary disease) Social History Smoking Status: Never Smoker Drug Use: none Marital Status: Housing Status: lives with significant other Occupation Status: retired Current/Historical Medications Scheduled Aspirin (Aspirin Ec), 81 MG PO QPM Cranberry (Vaccinium Macrocarp (Cranberry), 600 MG PO QPM Furosemide (Lasix), 20 MG PO BID Gemfibrozil (Lopid), 600 MG PO QAM Levothyroxine Sodium (Levothyroxine Sodium), 25 MCG PO DAILY Losartan Potassium (Cozaar), 50 MG PO DAILY Metoprolol Succinate (Toprol Xl), 25 MG PO HS Multiple Vitamins W/ Minerals (Centrum Silver Adult 50+), 1 TAB PO DAILY Pantoprazole (Protonix), 40 MG PO DAILY Sertraline HCl (Sertraline HCl), 200 MG PO QAM Scheduled PRN Promethazine (Phenergan ), 12.5 MG PO Q6H PRN for Nausea or Vomiting Triamcinolone (Triamcinolone Acetonide), 1 APPLN TOP DAILY PRN for Itching Allergies Coded Allergies: No Known Allergies (Unverified , 01/27/17) Physical Exam Vital Signs Date Time Temp Pulse Resp B/P (MAP) Pulse Ox O2 Delivery O2 Flow Rate FiO2 01/27/17 15:07 54 01/27/17 14:54 57 20 151/74 94 Room Air 01/27/17 13:24 36.4 68 18 141/75 98 Room Air Physical Exam Constitutional: Vital signs reviewed. Eyes: Pupils are equal round reactive to light. Conjunctiva are noninjected. ENT: Pharynx is clear without erythema or exudate. Mucous membranes are moist. Neck supple without meningeal signs. Respiratory: Clear to auscultation bilaterally. Breath sounds are equal bilaterally. Cardiovascular: Regular rate and rhythm. No rubs or gallops. GI: Soft with diffuse abdominal tenderness and distension. Bowel sounds are present. Musculoskeletal: No peripheral edema. No lower extremity tenderness. Integumentary: No cyanosis. Neurological: The patient is awake and alert. No focal deficits. Psychiatric: Normal affect. Medical Decision & Procedures ER Provider Diagnostic Interpretation: Radiology results as stated below per my review and the radiologist's interpretation: ABDOMEN 2VIEW W/PA CHEST RTN FINDINGS: The heart is enlarged. There is no focal pulmonary consolidation. There is no free intraperitoneal air. Erect and supine views the abdomen reveal mildly dilated small bowel loops measuring up to 41 mm in diameter. There are multiple small bowel air-fluid levels. There is a possibility of colonic gas. The findings are consistent with a small bowel obstruction. IMPRESSION: Small bowel obstructive pattern. No free air identified. Electronically signed by: Buddy Rodríguez M.D. Laboratory Results 01/27/17 14:04 Red Blood Count 3.92, Mean Corpuscular Volume 85.2, Mean Corpuscular Hemoglobin 28.6, Mean Corpuscular Hemoglobin Concent 33.5, Mean Platelet Volume 9.5, Neutrophils (%) (Auto) 77.5, Lymphocytes (%) (Auto) 13.0, Monocytes (%) (Auto) 6.2, Eosinophils (%) (Auto) 2.6, Basophils (%) (Auto) 0.4, Neutrophils # (Auto) 5.90, Lymphocytes # (Auto) 0.99, Monocytes # (Auto) 0.47, Eosinophils # (Auto) 0.20, Basophils # (Auto) 0.03 01/27/17 14:04 Test 01/27/17 14:04 White Blood Count 7.61 K/uL (4.8-10.8) Red Blood Count 3.92 M/uL (4.7-6.1) Hemoglobin 11.2 g/dL (14.0-18.0) Hematocrit 33.4 % (42-52) Mean Corpuscular Volume 85.2 fL (80-100) Mean Corpuscular Hemoglobin 28.6 pg (25-34) Mean Corpuscular Hemoglobin Concent 33.5 g/dl (32-36) Platelet Count 221 K/uL (130-400) Mean Platelet Volume 9.5 fL (7.4-10.4) Neutrophils (%) (Auto) 77.5 % Lymphocytes (%) (Auto) 13.0 % Monocytes (%) (Auto) 6.2 % Eosinophils (%) (Auto) 2.6 % Basophils (%) (Auto) 0.4 % Neutrophils # (Auto) 5.90 K/uL (1.4-6.5) Lymphocytes # (Auto) 0.99 K/uL (1.2-3.4) Monocytes # (Auto) 0.47 K/uL (0.11-0.59) Eosinophils # (Auto) 0.20 K/uL (0-0.5) Basophils # (Auto) 0.03 K/uL (0-0.2) RDW Standard Deviation 50.8 fL (36.4-46.3) RDW Coefficient of Variation 16.3 % (11.5-14.5) Immature Granulocyte % (Auto) 0.3 % Immature Granulocyte # (Auto) 0.02 K/uL (0.00-0.02) Prothrombin Time 11.4 SECONDS (9.0-12.0) Prothromb Time International Ratio 1.1 (0.9-1.1) Activated Partial Thromboplast Time 25.0 SECONDS (21.0-31.0) Partial Thromboplastin Ratio 1.0 Anion Gap 7.0 mmol/L (3-11) Est Creatinine Clear Calc Drug Dose 51.7 ml/min Estimated GFR () 58.3 Estimated GFR (Non- 50.3 BUN/Creatinine Ratio 22.7 (10-20) Calcium Level 9.4 mg/dl (8.5-10.1) Total Bilirubin 0.5 mg/dl (0.2-1) Direct Bilirubin 0.2 mg/dl (0-0.2) Aspartate Amino Transf (AST/SGOT) 65 U/L (15-37) Alanine Aminotransferase (ALT/SGPT) 43 U/L (12-78) Alkaline Phosphatase 69 U/L (45-117) Troponin I 0.034 ng/ml (0-0.045) Total Protein 7.6 gm/dl (6.4-8.2) Albumin 3.5 gm/dl (3.4-5.0) Lipase 324 U/L (73-393) Laboratory results as reviewed by me. Medications Administered Medications (Trade) Dose Ordered Sig/Raudel Route Start Time Stop Time Status Last Admin Dose Admin Morphine Sulfate (MoRPHine SULFATE INJ) 2 mg ONE STAT IV 01/27/17 13:35 01/27/17 13:36 DC 01/27/17 14:22 2 MG Ondansetron HCl (Zofran Inj) 4 mg NOW STAT IV 01/27/17 13:35 01/27/17 13:36 DC 01/27/17 14:20 4 MG ECG Indication: abdominal pain Rate (beats per minute): 60 Rhythm: normal sinus Findings: Q waves (Inferior and lateral), T-wave inversion (Lateral) Comparison ECG Date: September 2016 Change: T-wave inversion is new ED Course 1330: The patient was evaluated in room C4. A complete history and physical exam was performed. 1335: Zofran Inj 4 mg IV, Morphine Sulfate 2 mg IV. 1444: I rechecked on the patient, he says he is feeling a little bit better. 1451: I spoke with Dr. Spencer of [facility] hospitalist service. We discussed the patient and his results. The patient will be further evaluated by him. Medical Decision This is a 76-year-old male who presents with abdominal pain. Differential diagnosis includes small bowel obstruction, partial bowel obstruction, mass, adhesions, CO. I did perform a limited focused review of portions of the patient's old chart on the electronic medical record. The patient was admitted in September for sepsis and bacteremia. I did evaluate the patient as noted above. I did obtain history from the patient as well as his . He is presenting with abdominal pain which is similar to his prior episodes of obstruction. IV access was established. The patient was placed on a continuous cardiac nurse specialist. I did treat patient with IV morphine and Zofran. I did order and personally review the patient's 12- lead EKG and abdominal/chest x-ray as described above. Twelve-lead lead EKG demonstrated some T-wave inversions laterally which were not present back in September. He denies having any chest pain or discomfort. His x-rays demonstrate a small bowel obstruction. I did order and review the patient's blood work as noted in the electronic medical record. Troponin is negative. I did discuss the case with the hospitalist and mental health case manager. I did discuss the test results with the patient and his . He is feeling better. I did order an NG tube. The patient will be hospitalized. Medication Reconcilliation Current Medication List: was personally reviewed by me Blood Pressure Screening Patient's blood pressure: Elevated blood pressure Blood pressure disposition: Referred to PCP Consults Time Called: 1445 Consulting Physician: Dr. Spencer-[facility] Returned Call: [phone] Spencer of [facility] hospitalist service. We discussed the patient and his results. The patient will be further evaluated by him. Impression Primary Impression: Small bowel obstruction Scribe Attestation The scribe's documentation has been prepared under my direct and personally reviewed by me in its entirety. I confirm that the note above accurately reflects all work, treatment, procedures, and medical decision making performed by me. Departure Information Dispostion Being Evaluated By Hospitalist Referrals Miley Potts M.D. (PCP) Patient Instructions My [facility]
[2017-01-27 17:30] VITALS: BP 162/76; PULSE 66; TEMP 36.6; O2SAT 98; Ht 177.8 cm; Wt 90.1 kg
[2017-01-27 18:18] LABS: URINE APPEARANCE CLEAR (CLEAR); URINE BILIRUBIN NEG (NEG); URINE COLOR YELLOW; URINE NITRITE NEG (NEG); URINE SPECIFIC GRAVITY 1.019 (1.000-1.030); UROBILINOGEN NEG (NEG)
[2017-01-27 18:29] LABS: MANUAL MICROSCOPIC REQUIRED? NO; REVIEW REQ? NO
[2017-01-27] MEDS: SODIUM CHLOR 0.45% + 20MEQ KCL 1,000 ML IV SCH (18:35)
[2017-01-27] MEDS: ENOXAPARIN 40 MG/0.4 ML SYR SQ SCH (18:50)
[2017-01-27 21:46] VITALS: BP 161/70; PULSE 54; O2SAT 98
--- NOTE | 2017-01-27 22:13 | Surgery Consultation ---
Consultation Date of Consultation: Jan 27, 2017. Attending Physician: Lamberto Spencer D.O. History of Present Illness The patient is a very pleasant 76-year-old male with what sounds to be mild progressing towards moderate Alzheimers' so history is obtained partly from the patient and in large part from his . He was in his usual state of health until yesterday. She noted he was starting to take more gas medicines and unfortunately she notes that is often what he starts to do whenever he is working towards a small-bowel obstruction. He has had 3 or 4 of these in the not too distant past and then this morning he was having a lot more abdominal pain. She noticed his belly was distended. He was having some retching. He has not formally vomited, but he was having dry heaves and she felt that this was looking very reminiscent of his prior bowel obstruction and so she brought him here to the ER for further evaluation. Here he had findings consistent with small-bowel obstruction, we were asked to see him for further evaluation and treatment. Incidentally, he had an EKG with some flipped Ts in 1 and aVL. This was done because of question of chest pain whenever he first was being evaluated in triage. However, he denies chest pain or shortness of breath. His denies seeing him look like he had chest pain or shortness of breath. She does note that he looked a little bit ulloa and ashen, but now his color is better. now pt said he feels better, no abdominal pain, no nausea, no vomiting, pt passed BM this morning, Past Medical/Surgical History Medical Problems: (1) Abdominal pain Status: Acute (2) Altered mental status Status: Acute (3) Anemia Status: Acute (4) Elevated troponin Status: Acute (5) Fever Status: Acute (6) Fever Status: Acute (7) Pulmonary edema Status: Acute (8) Seizure Status: Acute (9) Sepsis Status: Acute (10) Sepsis Status: Acute (11) Small bowel obstruction Status: Acute (12) Substernal chest pain Status: Acute (13) Temporal headache Status: Acute Family History FH: COPD (chronic obstructive pulmonary disease) Social History Smoking Status: Never Smoker Smokeless Tobacco Use: No Alcohol Use: occasionally Drug Use: none Marital Status: Housing Status: lives with significant other Occupation Status: retired Allergies Coded Allergies: No Known Allergies (Unverified , 01/27/17) Home Medications Scheduled Aspirin (Aspirin Ec), 81 MG PO QPM Cranberry (Vaccinium Macrocarp (Cranberry), 600 MG PO QPM Furosemide (Lasix), 20 MG PO BID Gemfibrozil (Lopid), 600 MG PO QAM Levothyroxine Sodium (Levothyroxine Sodium), 25 MCG PO DAILY Losartan Potassium (Cozaar), 50 MG PO DAILY Metoprolol Succinate (Toprol Xl), 25 MG PO HS Multiple Vitamins W/ Minerals (Centrum Silver Adult 50+), 1 TAB PO DAILY Pantoprazole (Protonix), 40 MG PO DAILY Sertraline HCl (Sertraline HCl), 200 MG PO QAM Scheduled PRN Promethazine (Phenergan ), 12.5 MG PO Q6H PRN for Nausea or Vomiting Triamcinolone (Triamcinolone Acetonide), 1 APPLN TOP DAILY PRN for Itching Current Inpatient Medications Current Inpatient Medications Medications (Trade) Dose Ordered Sig/Raudel Route Start Time Stop Time Status Last Admin Dose Admin Enoxaparin Sodium (Lovenox Inj) 40 mg Q24H SQ 01/27/17 18:00 02/26/17 17:59 01/27/17 18:50 40 MG Ondansetron HCl (Zofran Inj) 4 mg Q6H PRN IV 01/27/17 15:00 02/26/17 14:59 Morphine Sulfate (MoRPHine SULFATE INJ) 2 mg Q4 PRN IV 01/27/17 15:00 02/10/17 14:59 Morphine Sulfate (MoRPHine SULFATE INJ) 4 mg Q4 PRN IV 01/27/17 15:00 02/10/17 14:59 Potassium Chloride/Sodium Chloride 1,000 ml @ 100 mls/hr Q10H IV 01/27/17 18:00 02/26/17 17:59 01/27/17 18:35 100 MLS/HR Review of Systems Constitutional: No fever, No chills, No sweats, No weight loss, No weakness, No fatigue, No problem reported Eyes: No worsening of vision, No eye pain, No redness, No discharge, No diplopia, No problem reported ENT: No hearing loss, No unusual epistaxis, No nasal symptoms, No sore throat, No tinnitus, No dental problems, No trouble swallowing, No problem reported Respiratory: No cough, No sputum, No wheezing, No shortness of breath, No dyspnea on exertion, No dyspnea at rest, No hemoptysis, No problem reported Cardiovascular: No chest pain, No orthopnea, No PND, No edema, No claudication , No palpitations, No problem reported Abdomen: + nausea, + vomiting Musculoskeletal: No joint pain, No muscle pain, No swelling, No calf pain, No problem reported Neurologic: No memory loss, No paralysis, No weakness, No numbness/tingling, No vertigo, No balance problems, No problem reported Psychiatric: No depression symptoms, No anhedonism, No anxiety, No insomnia, No substance abuse, No problem reported Endocrine: No fatigue, No excessive thirst, No excessive urination, No problem reported Hematologic / Lymphatic: No abnormal bleeding/bruising, No clotting problems, No swollen lymph nodes, No night sweats, No problem reported Physical Exam Date Time Temp Pulse Resp B/P (MAP) Pulse Ox O2 Delivery O2 Flow Rate FiO2 01/27/17 21:46 54 161/70 (100) 98 Room Air 01/27/17 17:30 98 Room Air 01/27/17 17:30 98 Room Air 01/27/17 17:30 36.6 66 18 162/76 98 Room Air 01/27/17 15:07 54 01/27/17 14:54 57 20 151/74 94 Room Air 01/27/17 13:24 36.4 68 18 141/75 98 Room Air General Appearance: WD/WN, no apparent distress Head: normocephalic Eyes: normal inspection ENT: normal ENT inspection Neck: supple, no adenopathy, no JVD Respiratory/Chest: chest non-tender, lungs clear, normal breath sounds Cardiovascular: regular rate, rhythm, no edema, no gallop, no JVD, no murmur Abdomen/GI: normal bowel sounds, non tender, soft, no organomegaly, no pulsatile mass Extremities/Musculoskelatal: normal inspection, no calf tenderness, normal capillary refill Neurologic/Psych: no motor/sensory deficits, alert, normal mood/affect Skin: normal color, warm/dry, no rash Laboratory Results Last 24 Hours Test 01/27/17 14:04 01/27/17 18:05 01/27/17 21:27 White Blood Count 7.61 K/uL Red Blood Count 3.92 M/uL Hemoglobin 11.2 g/dL Hematocrit 33.4 % Mean Corpuscular Volume 85.2 fL Mean Corpuscular Hemoglobin 28.6 pg Mean Corpuscular Hemoglobin Concent 33.5 g/dl Platelet Count 221 K/uL Mean Platelet Volume 9.5 fL Neutrophils (%) (Auto) 77.5 % Lymphocytes (%) (Auto) 13.0 % Monocytes (%) (Auto) 6.2 % Eosinophils (%) (Auto) 2.6 % Basophils (%) (Auto) 0.4 % Neutrophils # (Auto) 5.90 K/uL Lymphocytes # (Auto) 0.99 K/uL Monocytes # (Auto) 0.47 K/uL Eosinophils # (Auto) 0.20 K/uL Basophils # (Auto) 0.03 K/uL RDW Standard Deviation 50.8 fL RDW Coefficient of Variation 16.3 % Immature Granulocyte % (Auto) 0.3 % Immature Granulocyte # (Auto) 0.02 K/uL Prothrombin Time 11.4 SECONDS Prothromb Time International Ratio 1.1 Activated Partial Thromboplast Time 25.0 SECONDS Partial Thromboplastin Ratio 1.0 Sodium Level 140 mmol/L Potassium Level 4.4 mmol/L Chloride Level 106 mmol/L Carbon Dioxide Level 26 mmol/L Anion Gap 7.0 mmol/L Blood Urea Nitrogen 31 mg/dl Creatinine 1.35 mg/dl Est Creatinine Clear Calc Drug Dose 51.7 ml/min Estimated GFR () 58.3 Estimated GFR (Non- 50.3 BUN/Creatinine Ratio 22.7 Random Glucose 142 mg/dl Calcium Level 9.4 mg/dl Total Bilirubin 0.5 mg/dl Direct Bilirubin 0.2 mg/dl Aspartate Amino Transf (AST/SGOT) 65 U/L Alanine Aminotransferase (ALT/SGPT) 43 U/L Alkaline Phosphatase 69 U/L Troponin I 0.034 ng/ml 0.029 ng/ml Total Protein 7.6 gm/dl Albumin 3.5 gm/dl Lipase 324 U/L Urine Color YELLOW Urine Appearance CLEAR Urine pH 5.0 Urine Specific [place] 1.019 Urine Protein NEG Urine Glucose (UA) NEG Urine Ketones NEG Urine Occult Blood NEG Urine Nitrite NEG Urine Bilirubin NEG Urine Urobilinogen NEG Urine Leukocyte Esterase NEG Assessment & Plan KUB-IMPRESSION: Small bowel obstructive pattern. No free air identified. IMP: SBO pt is doing better, no abdominal pain conservative treatment, will F/U
[2017-01-27 22:59] VITALS: BP 156/80; PULSE 54; TEMP 36.7; O2SAT 91
[2017-01-28] MEDS: SODIUM CHLOR 0.45% + 20MEQ KCL 1,000 ML IV SCH ×3 (02:48→23:21)
[2017-01-28 07:18] VITALS: BP 114/52; PULSE 61; TEMP 37; O2SAT 97
[2017-01-28 07:53] LABS: BUN/CREATININE RATIO 26.2 (10-20); CALCIUM 8.9 mg/dl (8.5-10.1); CREATININE 1.12 mg/dl (0.60-1.40); POTASSIUM 4.4 mmol/L (3.5-5.1)
--- NOTE | 2017-01-28 09:48 | Surgery Progress Note ---
Surgery Progress Note Date of Service Jan 28, 2017. Subjective + feeling well pt is doing better, passed gas, pt denies abdominal pain, no nausea, no vomiting , Objective Vital Signs: Date Time Temp Pulse Resp B/P (MAP) Pulse Ox O2 Delivery O2 Flow Rate FiO2 01/28/17 07:50 Room Air 01/28/17 07:18 37.0 61 16 114/52 (72) 97 Room Air 01/27/17 23:36 Room Air 01/27/17 22:59 36.7 54 16 156/80 (105) 91 Room Air 01/27/17 21:46 54 161/70 (100) 98 Room Air 01/27/17 17:30 98 Room Air 01/27/17 17:30 98 Room Air 01/27/17 17:30 36.6 66 18 162/76 98 Room Air 01/27/17 15:07 54 01/27/17 14:54 57 20 151/74 94 Room Air 01/27/17 13:24 36.4 68 18 141/75 98 Room Air General Appearance: WD/WN, no apparent distress Head: normocephalic Neck: supple, no JVD Respiratory/Chest: chest non-tender, lungs clear, normal breath sounds Cardiovascular: regular rate, rhythm, no edema, no gallop, no JVD Abdomen: normal bowel sounds, non tender, non distended, soft Incision(s): clean, dry, intact Extremities: normal range of motion, non-tender, normal inspection Laboratory Results: Results Past 24 Hours Test 01/27/17 14:04 01/27/17 18:05 01/27/17 21:27 01/28/17 06:52 Range/Units White Blood Count 7.61 4.8-10.8 K/uL Red Blood Count 3.92 4.7-6.1 M/uL Hemoglobin 11.2 14.0-18.0 g/dL Hematocrit 33.4 42-52 % Mean Corpuscular Volume 85.2 80-100 fL Mean Corpuscular Hemoglobin 28.6 25-34 pg Mean Corpuscular Hemoglobin Concent 33.5 32-36 g/dl Platelet Count 221 130-400 K/uL Mean Platelet Volume 9.5 7.4-10.4 fL Neutrophils (%) (Auto) 77.5 % Lymphocytes (%) (Auto) 13.0 % Monocytes (%) (Auto) 6.2 % Eosinophils (%) (Auto) 2.6 % Basophils (%) (Auto) 0.4 % Neutrophils # (Auto) 5.90 1.4-6.5 K/uL Lymphocytes # (Auto) 0.99 1.2-3.4 K/uL Monocytes # (Auto) 0.47 0.11-0.59 K/uL Eosinophils # (Auto) 0.20 0-0.5 K/uL Basophils # (Auto) 0.03 0-0.2 K/uL RDW Standard Deviation 50.8 36.4-46.3 fL RDW Coefficient of Variation 16.3 11.5-14.5 % Immature Granulocyte % (Auto) 0.3 % Immature Granulocyte # (Auto) 0.02 0.00-0.02 K/uL Prothrombin Time 11.4 9.0-12.0 SECONDS Prothromb Time International Ratio 1.1 0.9-1.1 Activated Partial Thromboplast Time 25.0 21.0-31.0 SECONDS Partial Thromboplastin Ratio 1.0 Sodium Level 140 141 136-145 mmol/L Potassium Level 4.4 4.4 3.5-5.1 mmol/L Chloride Level 106 109 98-107 mmol/L Carbon Dioxide Level 26 24 21-32 mmol/L Anion Gap 7.0 8.0 3-11 mmol/L Blood Urea Nitrogen 31 29 7-18 mg/dl Creatinine 1.35 1.12 0.60-1.40 mg/dl Est Creatinine Clear Calc Drug Dose 51.7 62.4 ml/min Estimated GFR () 58.3 73.0 Estimated GFR (Non- 50.3 63.0 BUN/Creatinine Ratio 22.7 26.2 10-20 Random Glucose 142 91 70-99 mg/dl Calcium Level 9.4 8.9 8.5-10.1 mg/dl Total Bilirubin 0.5 0.2-1 mg/dl Direct Bilirubin 0.2 0-0.2 mg/dl Aspartate Amino Transf (AST/SGOT) 65 15-37 U/L Alanine Aminotransferase (ALT/SGPT) 43 12-78 U/L Alkaline Phosphatase 69 45-117 U/L Troponin I 0.034 0.029 0.028 0-0.045 ng/ml Total Protein 7.6 6.4-8.2 gm/dl Albumin 3.5 3.4-5.0 gm/dl Lipase 324 73-393 U/L Urine Color YELLOW Urine Appearance CLEAR CLEAR Urine pH 5.0 4.5-7.5 Urine Specific [place] 1.019 1.000-1.030 Urine Protein NEG NEG Urine Glucose (UA) NEG NEG Urine Ketones NEG NEG Urine Occult Blood NEG NEG Urine Nitrite NEG NEG Urine Bilirubin NEG NEG Urine Urobilinogen NEG NEG Urine Leukocyte Esterase NEG NEG Assessment & Plan pt is doing butter, passed gas, Plan, continue treatment, will F/U
[2017-01-28] MEDS ORDERED: HYDROmorphone INJ 0.5 MG/0.5 ML SYR ONE (12:27)
[2017-01-28] MEDS ORDERED: HYDROmorphone INJ 1 MG/ML SYR IV PRN (12:30)
[2017-01-28] MEDS ORDERED: HYDROmorphone INJ 0.5 MG/0.5 ML SYR IV ONE (13:00)
--- NOTE | 2017-01-28 13:47 | Hospitalist Progress Note ---
Hospitalist Progress Note Date of Service Jan 28, 2017. (Belinda Anderson PA-C) Subjective Pt evaluation today including: conversation w/ patient, conversation w/ family , physical exam, chart review, lab review, review of studies, review of inpatient medication list Patient seen and evaluated. No acute events overnight. Passing flatus but no BM. Reports abdomen feels a little less distended but denies abdominal pain. Continues to have no appetite. No nausea/vomiting. Reporting takes approx. 4 days in the past to resolve. Abdomen is tympanic on percussion and mildly distended but benign on palpation. EKG continues to have T wave inversions in lateral leads which was present on EKG in September but has been intermittent. Does have significant systolic dysfunction and known LVH per . Troponins have been negative and denying CP. Can continue to monitor and defer further testing to outpatient setting if necessary Constitutional: No fever, No chills Respiratory: No shortness of breath Cardiovascular: No chest pain, No palpitations Abdomen: + problem reported (abdominal bloat), No pain, No nausea, No vomiting, No diarrhea, No constipation Musculoskeletal: No swelling, No calf pain Male : No dysuria Heme: No abnormal bleeding/bruising (Belinda Anderson PA-C) Medications Current Inpatient Medications Medications (Trade) Dose Ordered Sig/Raudel Route Start Time Stop Time Status Last Admin Dose Admin Enoxaparin Sodium (Lovenox Inj) 40 mg Q24H SQ 01/27/17 18:00 02/26/17 17:59 01/27/17 18:50 40 MG Ondansetron HCl (Zofran Inj) 4 mg Q6H PRN IV 01/27/17 15:00 02/26/17 14:59 Morphine Sulfate (MoRPHine SULFATE INJ) 2 mg Q4 PRN IV 01/27/17 15:00 02/10/17 14:59 Morphine Sulfate (MoRPHine SULFATE INJ) 4 mg Q4 PRN IV 01/27/17 15:00 02/10/17 14:59 Potassium Chloride/Sodium Chloride 1,000 ml @ 100 mls/hr Q10H IV 01/27/17 18:00 02/26/17 17:59 01/28/17 13:00 100 MLS/HR Hydromorphone HCl (Dilaudid Inj) 0.5 mg Q4 PRN IV 01/28/17 12:30 02/11/17 12:29 Hydromorphone HCl (Dilaudid Inj) 1 mg Q4 PRN IV 01/28/17 12:30 02/11/17 12:29 (Belinda Anderson PA-C) Objective Vital Signs Date Time Temp Pulse Resp B/P (MAP) Pulse Ox O2 Delivery O2 Flow Rate FiO2 01/28/17 07:50 Room Air 01/28/17 07:18 37.0 61 16 114/52 (72) 97 Room Air 01/27/17 23:36 Room Air 01/27/17 22:59 36.7 54 16 156/80 (105) 91 Room Air 01/27/17 21:46 54 161/70 (100) 98 Room Air 01/27/17 17:30 98 Room Air 01/27/17 17:30 98 Room Air 01/27/17 17:30 36.6 66 18 162/76 98 Room Air 01/27/17 15:07 54 01/27/17 14:54 57 20 151/74 94 Room Air (Belinda Anderson, PA-C) Physical Exam General Appearance: WD/WN, no apparent distress Eyes: sclerae normal ENT: hearing grossly normal Neck: supple, no JVD, trachea midline Respiratory/Chest: lungs clear, normal breath sounds, no respiratory distress, no accessory muscle use Cardiovascular: regular rate, rhythm, no gallop, no murmur Abdomen: normal bowel sounds, non tender, soft, + distended (mostly in LUQ), + pertinent finding (Tympanic to percussion in LUQ) Extremities: no pedal edema, no calf tenderness Neurologic/Psychiatric: alert Skin: normal color, warm/dry (Belinda Anderson, PA-C) Laboratory Results Last 24 Hours Test 01/27/17 14:04 01/27/17 18:05 01/27/17 21:27 01/28/17 06:52 White Blood Count 7.61 K/uL Red Blood Count 3.92 M/uL Hemoglobin 11.2 g/dL Hematocrit 33.4 % Mean Corpuscular Volume 85.2 fL Mean Corpuscular Hemoglobin 28.6 pg Mean Corpuscular Hemoglobin Concent 33.5 g/dl Platelet Count 221 K/uL Mean Platelet Volume 9.5 fL Neutrophils (%) (Auto) 77.5 % Lymphocytes (%) (Auto) 13.0 % Monocytes (%) (Auto) 6.2 % Eosinophils (%) (Auto) 2.6 % Basophils (%) (Auto) 0.4 % Neutrophils # (Auto) 5.90 K/uL Lymphocytes # (Auto) 0.99 K/uL Monocytes # (Auto) 0.47 K/uL Eosinophils # (Auto) 0.20 K/uL Basophils # (Auto) 0.03 K/uL RDW Standard Deviation 50.8 fL RDW Coefficient of Variation 16.3 % Immature Granulocyte % (Auto) 0.3 % Immature Granulocyte # (Auto) 0.02 K/uL Prothrombin Time 11.4 SECONDS Prothromb Time International Ratio 1.1 Activated Partial Thromboplast Time 25.0 SECONDS Partial Thromboplastin Ratio 1.0 Sodium Level 140 mmol/L 141 mmol/L Potassium Level 4.4 mmol/L 4.4 mmol/L Chloride Level 106 mmol/L 109 mmol/L Carbon Dioxide Level 26 mmol/L 24 mmol/L Anion Gap 7.0 mmol/L 8.0 mmol/L Blood Urea Nitrogen 31 mg/dl 29 mg/dl Creatinine 1.35 mg/dl 1.12 mg/dl Est Creatinine Clear Calc Drug Dose 51.7 ml/min 62.4 ml/min Estimated GFR () 58.3 73.0 Estimated GFR (Non- 50.3 63.0 BUN/Creatinine Ratio 22.7 26.2 Random Glucose 142 mg/dl 91 mg/dl Calcium Level 9.4 mg/dl 8.9 mg/dl Total Bilirubin 0.5 mg/dl Direct Bilirubin 0.2 mg/dl Aspartate Amino Transf (AST/SGOT) 65 U/L Alanine Aminotransferase (ALT/SGPT) 43 U/L Alkaline Phosphatase 69 U/L Troponin I 0.034 ng/ml 0.029 ng/ml 0.028 ng/ml Total Protein 7.6 gm/dl Albumin 3.5 gm/dl Lipase 324 U/L Urine Color YELLOW Urine Appearance CLEAR Urine pH 5.0 Urine Specific [place] 1.019 Urine Protein NEG Urine Glucose (UA) NEG Urine Ketones NEG Urine Occult Blood NEG Urine Nitrite NEG Urine Bilirubin NEG Urine Urobilinogen NEG Urine Leukocyte Esterase NEG (Belinda Anderson, PA-C) Assessment and Plan Mr. Miller is a 76 y/o male with recurrent SBO who prevents with another SBO Partial SBO 2/2 Likely Adhesional: - Passing flatus but no BM; no N/V or abdominal pain and will defer NGT placement at this time - Keep NPO at this time and likely will begin to resolve conservatively - 1/2 NSS + 20 mEq KCL at 100 mL/hr - Morphine and Dilaudid PRN - Gen Surg following - agree with conservative treatment Lateral Lead T Wave Inversion: - Chest pain free and troponins negative - review of previous EKGs reveal intermittent ones with same T wave inversions - Echo reveals significant EF decrease and reports LVH and CAD - While remaining asymptomatic will defer to outpatient setting if needed for further evaluation CAD with Chronic Systolic CHF: STABLE - reports no issues with fluid retention and is maintained with medicinal coverage - on hold at this time due to NPO status - Can resume when diet is started - will watch for rebound from BB therapy Dementia: STABLE Mild Elevation of AST: Outpatient F/U Mild Non-Fasting Hyperglycemia: Outpatient F/U Mild Anemia: Outpatient F/U DVT Prophylaxis: Lovenox 40 mg SC daily Disposition: - Continue conservative treatment and await resolution Continued [facility] stay due to: inadequate po fluid intake (Belinda Anderson, PABereketC) PA Physician Supervision Note: I interviewed and examined the patient. Discussed with Belinda Anderson PAC and agree with findings and plan as documented in the note. Any exceptions or clarifications are listed here: None Patient here with recurrent small bowel obstruction also history cardiomyopathy is tolerating IV fluids without difficulty Continue with conservative management while signs are stable Abdomen is hypoactive soft mildly tender left upper quadrant cardiac exam is regular lungs are without rales Small bowel obstruction with supportive care and help it resolves as it has in the past no need for NG tube at this time Documented By: Bjorn Govea (Bjorn Govea M.D.)
[2017-01-28 15:18] VITALS: BP 172/78; PULSE 66; TEMP 36.8; O2SAT 95
[2017-01-28 15:40] VITALS: BP 159/84; PULSE 66
[2017-01-28] MEDS: ACETAMINOPHEN IV 650 MG in EMPTY BAG 0 ML IV PRN (17:03)
[2017-01-28] MEDS: ENOXAPARIN 40 MG/0.4 ML SYR SQ SCH (17:08)
[2017-01-28 22:54] VITALS: BP 168/81; PULSE 55; TEMP 36.8; O2SAT 94
[2017-01-29 07:53] VITALS: BP 158/72; PULSE 71; TEMP 37; O2SAT 95
[2017-01-29] MEDS: HYDROmorphone INJ 0.5 MG/0.5 ML SYR IV PRN ×2 (07:56→15:20)
[2017-01-29 08:37] VITALS: O2SAT 95
[2017-01-29] MEDS: SODIUM CHLOR 0.45% + 20MEQ KCL 1,000 ML IV SCH ×2 (09:14→19:30)
--- NOTE | 2017-01-29 14:06 | Hospitalist Progress Note ---
Hospitalist Progress Note Date of Service Jan 29, 2017. (Belinda Anderson PA-C) Subjective Pt evaluation today including: conversation w/ patient, conversation w/ family , physical exam, chart review, lab review, review of studies, review of inpatient medication list Patient seen and evaluated. No acute events overnight. Remains NPO and no bowel movement. Reporting some increased pain today and now very sleepy after Dilaudid. At this time remains comfortable and no need for NGT at this point. On assessment yesterday patient had good BS x 4 quadrants but today very hypoactive. Additional Comments: Deferred due to lethargy from medication. Reports feeling "ok" right now but did have abdominal pain earlier in the day. (Belinda Anderson PA-C) Medications Current Inpatient Medications Medications (Trade) Dose Ordered Sig/Raudel Route Start Time Stop Time Status Last Admin Dose Admin Enoxaparin Sodium (Lovenox Inj) 40 mg Q24H SQ 01/27/17 18:00 02/26/17 17:59 01/28/17 17:08 40 MG Ondansetron HCl (Zofran Inj) 4 mg Q6H PRN IV 01/27/17 15:00 02/26/17 14:59 Morphine Sulfate (MoRPHine SULFATE INJ) 2 mg Q4 PRN IV 01/27/17 15:00 02/10/17 14:59 Morphine Sulfate (MoRPHine SULFATE INJ) 4 mg Q4 PRN IV 01/27/17 15:00 02/10/17 14:59 Potassium Chloride/Sodium Chloride 1,000 ml @ 100 mls/hr Q10H IV 01/27/17 18:00 02/26/17 17:59 01/29/17 09:14 100 MLS/HR Hydromorphone HCl (Dilaudid Inj) 0.5 mg Q4 PRN IV 01/28/17 12:30 02/11/17 12:29 01/29/17 07:56 0.5 MG Hydromorphone HCl (Dilaudid Inj) 1 mg Q4 PRN IV 01/28/17 12:30 02/11/17 12:29 Acetaminophen 650 mg/Empty Bag 65 ml @ 260 mls/hr Q6H PRN IV 01/28/17 16:00 02/27/17 15:59 01/28/17 17:03 260 MLS/HR (Belinda Anderson PA-C) Objective Vital Signs Date Time Temp Pulse Resp B/P (MAP) Pulse Ox O2 Delivery O2 Flow Rate FiO2 01/29/17 08:37 95 Room Air 01/29/17 07:53 37.0 71 18 158/72 (100) 95 Room Air 01/29/17 07:45 Room Air 01/28/17 23:25 Room Air 01/28/17 22:54 36.8 55 18 168/81 (110) 94 Room Air 01/28/17 15:40 66 159/84 (109) 01/28/17 15:30 Room Air 01/28/17 15:18 36.8 66 16 172/78 (109) 95 Room Air (Belinda Anderson PA-C) Physical Exam General Appearance: WD/WN, no apparent distress Neck: supple, no JVD, trachea midline Respiratory/Chest: lungs clear, normal breath sounds, no respiratory distress, no accessory muscle use Cardiovascular: regular rate, rhythm, no gallop, no murmur Abdomen: non tender, soft, + abnormal bowel sounds (hypoactive BS x 4 quadrants ), + distended Extremities: no pedal edema, no calf tenderness Neurologic/Psychiatric: + pertinent finding (sleepy) Skin: normal color, warm/dry (Belinda Anderson, MEGAN-C) Assessment and Plan Mr. Miller is a 76 y/o male with recurrent SBO who prevents with another SBO Partial SBO 2/2 Likely Adhesional: - Passing flatus but no BM; treated for abd pain this AM; no N/V - Keep NPO at this time and likely will begin to resolve conservatively - 1/2 NSS + 20 mEq KCL at 100 mL/hr - Tylenol and Dilaudid PRN - Gen Surg following - agree with conservative treatment Lateral Lead T Wave Inversion: - Chest pain free and troponins negative - review of previous EKGs reveal intermittent ones with same T wave inversions - Echo reveals significant EF decrease and reports LVH and CAD - While remaining asymptomatic will defer to outpatient setting if needed for further evaluation CAD with Chronic Systolic CHF: STABLE - reports no issues with fluid retention and is maintained with medicinal coverage - on hold at this time due to NPO status - Can resume when diet is started - will watch for rebound from BB therapy but no rebound noted Dementia: STABLE Mild Elevation of AST: Outpatient F/U Mild Non-Fasting Hyperglycemia: Outpatient F/U Mild Anemia: Outpatient F/U DVT Prophylaxis: Lovenox 40 mg SC daily Disposition: - Continue conservative treatment and await resolution Continued [facility] stay due to: multiple IV medications needed Discharge planning: home (Belinda Anderson, WALLY) PA Physician Supervision Note: I interviewed and examined the patient. Discussed with Belinda Anderson PAC and agree with findings and plan as documented in the note. Any exceptions or clarifications are listed here: None Patient was sedated after receiving pain medication as he has had very poor progression may be slight worsening of his abdominal pain and distention. This is not his typical progression is usually has this resolve over time he has however in the past required NG tube drainage. His vitals are stable with exception of systolic hypertension which could be from his pain is abdomen is with hypoactive bowel sounds distended and tender mostly in the left upper quadrant Recurrent small bowel obstruction currently on bowel rest with hydration will repeat abdominal x-ray in the morning to evaluate for progression if vomiting ensues Eckermann NG drainage once x-rays performed will continue to confer with surgery colleagues pain control and hydration continue Documented By: Bjorn Govea (Bjorn Govea M.D.)
[2017-01-29 15:06] VITALS: BP 178/75; PULSE 72; TEMP 36.8; O2SAT 96
[2017-01-29 15:30] VITALS: O2SAT 96
[2017-01-29 16:12] VITALS: BP 172/76; PULSE 72
[2017-01-29] MEDS: HydrALAZINE HCL 20 MG/ML VIAL IV. PRN (16:16)
--- NOTE | 2017-01-29 17:11 | Surgery Progress Note ---
Surgery Progress Note Date of Service Jan 29, 2017. Subjective + feeling well passed samy today, pt feels better, no abdominal pain, no nausea, no vomiting, Objective Vital Signs: Date Time Temp Pulse Resp B/P (MAP) Pulse Ox O2 Delivery O2 Flow Rate FiO2 01/29/17 16:12 72 172/76 (108) 01/29/17 15:30 96 Room Air 01/29/17 15:06 36.8 72 18 178/75 (109) 96 Room Air 01/29/17 08:37 95 Room Air 01/29/17 07:53 37.0 71 18 158/72 (100) 95 Room Air 01/29/17 07:45 Room Air 01/28/17 23:25 Room Air 01/28/17 22:54 36.8 55 18 168/81 (110) 94 Room Air General Appearance: WD/WN, no apparent distress Head: normocephalic Neck: supple, no JVD Respiratory/Chest: chest non-tender, lungs clear, normal breath sounds Cardiovascular: regular rate, rhythm, no edema, no gallop, no JVD, no murmur Abdomen: normal bowel sounds, non tender, non distended, soft Extremities: normal range of motion, non-tender, normal inspection Assessment & Plan pt is doing butter, passed gas, Plan, continue treatment, will F/U 01/29/2017 pt is doing better, no abdominal pain, passed samy today may start clear diet tomorrow, will F/U pt is doing butter, passed gas, Plan, continue treatment, will F/U
[2017-01-29] MEDS: ENOXAPARIN 40 MG/0.4 ML SYR SQ SCH (17:54)
[2017-01-29 23:30] VITALS: BP 157/70; PULSE 81; TEMP 36.7; O2SAT 96
[2017-01-30] VITALS (7 sets, daily range): BP systolic 152–170; BP diastolic 72–80; PULSE 79–96; TEMP 36.6–36.9; O2SAT 96–98
[2017-01-30] MEDS: ACETAMINOPHEN IV 650 MG in EMPTY BAG 0 ML IV PRN ×3 (03:15→23:27)
[2017-01-30] MEDS: SODIUM CHLOR 0.45% + 20MEQ KCL 1,000 ML IV SCH ×2 (05:24→16:03)
--- NOTE | 2017-01-30 07:42 | DIAGNOSTIC IMAGING REPORT ---
ABDOMEN 2 VIEWS CLINICAL HISTORY: Small bowel obstruction. FINDINGS: Supine and erect abdominal radiographs are compared to study dated 01/27/2017 and correlated with abdominal CT dated 10/20/2016. There are mildly distended small bowel loops measure up to 3.8 cm. There is no evidence of high-grade obstruction, as gas is present throughout the colon. Mild mucosal thickening is suggested within loops of bowel the left abdomen. Phleboliths are seen in the pelvis. The skeletal structures are osteopenic. Lumbosacral spondylosis is observed. IMPRESSION: 1. There is evidence of persistent small bowel obstruction. This is likely low-grade/partial, as gas is present in the colon. 2. Mildly thick-walled loops of bowel are suggested in the left abdomen. 3. No intraperitoneal free air is seen. Electronically signed by: Antelmo Howe M.D. 01/30/2017 7:40 AM Dictated Date/Time: 01/30/2017 7:37 AM
[2017-01-30 08:28] LABS: HEMATOCRIT 35.2 % (42-52); MEAN CELL VOLUME 86.1 fL (80-100); MEAN CORPUSCULAR HEMOGLOBIN 27.6 pg (25-34); MEAN CORPUSCULAR HGB CONC 32.1 g/dl (32-36); MEAN PLATELET VOLUME 9.2 fL (7.4-10.4); PLATELET COUNT 284 K/uL (130-400); RED BLOOD COUNT 4.09 M/uL (4.7-6.1); WHITE BLOOD COUNT 7.55 K/uL (4.8-10.8)
[2017-01-30 08:55] LABS: BUN/CREATININE RATIO 22.1 (10-20); CALCIUM 9.4 mg/dl (8.5-10.1); CREATININE 1.02 mg/dl (0.60-1.40); POTASSIUM 4.5 mmol/L (3.5-5.1)
--- NOTE | 2017-01-30 14:04 | Surgery Progress Note ---
Surgery Progress Note Date of Service Jan 30, 2017. Subjective + feeling well pt is doing better, passed gas, no abdominal pain, no nausea, no vomiting, Objective Vital Signs: Date Time Temp Pulse Resp B/P (MAP) Pulse Ox O2 Delivery O2 Flow Rate FiO2 01/30/17 11:29 36.7 80 14 160/80 (106) 97 Room Air 01/30/17 09:01 98 Room Air 01/30/17 07:58 36.6 96 16 152/78 (102) 98 Room Air 01/30/17 07:15 Room Air 01/29/17 23:32 Room Air 01/29/17 23:30 36.7 81 18 157/70 (99) 96 Room Air 01/29/17 16:12 72 172/76 (108) 01/29/17 15:30 96 Room Air 01/29/17 15:06 36.8 72 18 178/75 (109) 96 Room Air General Appearance: WD/WN, no apparent distress Head: normocephalic Neck: supple, thyroid normal Respiratory/Chest: chest non-tender, lungs clear Cardiovascular: regular rate, rhythm, no edema, no gallop, no JVD, no murmur Abdomen: normal bowel sounds, non tender, non distended, soft, no organomegaly Extremities: normal range of motion, non-tender, normal inspection Laboratory Results: Results Past 24 Hours Test 01/30/17 08:01 Range/Units White Blood Count 7.55 4.8-10.8 K/uL Red Blood Count 4.09 4.7-6.1 M/uL Hemoglobin 11.3 14.0-18.0 g/dL Hematocrit 35.2 42-52 % Mean Corpuscular Volume 86.1 80-100 fL Mean Corpuscular Hemoglobin 27.6 25-34 pg Mean Corpuscular Hemoglobin Concent 32.1 32-36 g/dl RDW Standard Deviation 50.1 36.4-46.3 fL RDW Coefficient of Variation 15.9 11.5-14.5 % Platelet Count 284 130-400 K/uL Mean Platelet Volume 9.2 7.4-10.4 fL Sodium Level 136 136-145 mmol/L Potassium Level 4.5 3.5-5.1 mmol/L Chloride Level 105 98-107 mmol/L Carbon Dioxide Level 17 21-32 mmol/L Anion Gap 14.0 3-11 mmol/L Blood Urea Nitrogen 23 7-18 mg/dl Creatinine 1.02 0.60-1.40 mg/dl Est Creatinine Clear Calc Drug Dose 67.4 ml/min Estimated GFR () 81.2 Estimated GFR (Non- 70.1 BUN/Creatinine Ratio 22.1 10-20 Random Glucose 74 70-99 mg/dl Calcium Level 9.4 8.5-10.1 mg/dl Assessment & Plan pt is doing butter, passed gas, Plan, continue treatment, will F/U 01/29/2017 pt is doing better, no abdominal pain, passed samy today may start clear diet tomorrow, will F/U 01/30/2017 pt is doing better, passed gas, no abdominal pain, clear diet pt can go home if he tolerated clear diet, I sign off today, please call me any questions, F/U me 1 week in my clinic, pt is doing butter, passed gas, Plan, continue treatment, will F/U 01/29/2017 pt is doing better, no abdominal pain, passed samy today may start clear diet tomorrow, will F/U
[2017-01-30] MEDS: HydrALAZINE HCL 20 MG/ML VIAL IV. PRN ×2 (17:10→23:27)
--- NOTE | 2017-01-30 17:32 | Progress Note ---
Subjective Date of Service: Jan 30, 2017. Subjective pt feels better than yesterday, abd series looks improved, surgery did advance diet and was updated at bedside Problem List Medical Problems: (1) Abdominal pain Status: Acute (2) Altered mental status Status: Acute (3) Anemia Status: Acute (4) Elevated troponin Status: Acute (5) Fever Status: Acute (6) Fever Status: Acute (7) Pulmonary edema Status: Acute (8) Seizure Status: Acute (9) Sepsis Status: Acute (10) Sepsis Status: Acute (11) Small bowel obstruction Status: Acute (12) Substernal chest pain Status: Acute (13) Temporal headache Status: Acute Review of Systems Constitutional: No fever, No chills, No weakness Respiratory: No cough, No shortness of breath Cardiac: No chest pain, No edema Abdomen: + pain, + constipation, No nausea, No vomiting, No diarrhea Musculoskeletal: No joint pain, No muscle pain Objective Vital Signs Date Time Temp Pulse Resp B/P (MAP) Pulse Ox O2 Delivery O2 Flow Rate FiO2 01/30/17 17:07 79 163/72 (102) 01/30/17 15:45 96 Room Air 01/30/17 14:56 36.6 79 18 162/72 (102) 96 Room Air 01/30/17 11:29 36.7 80 14 160/80 (106) 97 Room Air 01/30/17 09:01 98 Room Air 01/30/17 07:58 36.6 96 16 152/78 (102) 98 Room Air 01/30/17 07:15 Room Air 01/29/17 23:32 Room Air 01/29/17 23:30 36.7 81 18 157/70 (99) 96 Room Air Physical Exam General Appearance: WD/WN, + mild distress Eyes: PERRL, EOMI Respiratory/Chest: chest non-tender, lungs clear, normal breath sounds Cardiovascular: regular rate, rhythm, no murmur Abdomen: normal bowel sounds, soft, + guarding, + tenderness Extremities: no pedal edema, no calf tenderness Laboratory Results Last 24 Hours Test 01/30/17 08:01 White Blood Count 7.55 K/uL Red Blood Count 4.09 M/uL Hemoglobin 11.3 g/dL Hematocrit 35.2 % Mean Corpuscular Volume 86.1 fL Mean Corpuscular Hemoglobin 27.6 pg Mean Corpuscular Hemoglobin Concent 32.1 g/dl RDW Standard Deviation 50.1 fL RDW Coefficient of Variation 15.9 % Platelet Count 284 K/uL Mean Platelet Volume 9.2 fL Sodium Level 136 mmol/L Potassium Level 4.5 mmol/L Chloride Level 105 mmol/L Carbon Dioxide Level 17 mmol/L Anion Gap 14.0 mmol/L Blood Urea Nitrogen 23 mg/dl Creatinine 1.02 mg/dl Est Creatinine Clear Calc Drug Dose 67.4 ml/min Estimated GFR () 81.2 Estimated GFR (Non- 70.1 BUN/Creatinine Ratio 22.1 Random Glucose 74 mg/dl Calcium Level 9.4 mg/dl Assessment and Plan Mr. Miller is a 76 y/o male with recurrent SBO slow but steady improvement, surgery did advance diet 01/30 Partial SBO repeat xray looks no worse slightly better, still with flatus but no BM - Gen Surg following - advanced diet, continue with with conservative treatment Chronic systolic heart failure, cad, recent cardiac event, Echo reveals significant EF decrease and reports LVH and CAD - refer to outpatient setting for further evaluation Dementia: continues to be stable DVT Prophylaxis: Lovenox 40 mg SC daily Documented By: Bjorn Govea Continued [facility] stay due to: multiple IV medications needed Discharge planning: home
[2017-01-30] MEDS: ENOXAPARIN 40 MG/0.4 ML SYR SQ SCH (18:56)
[2017-01-31] VITALS (10 sets, daily range): BP systolic 120–182; BP diastolic 57–85; PULSE 81–87; TEMP 36.7–37; O2SAT 96–98
[2017-01-31] MEDS: SODIUM CHLOR 0.45% + 20MEQ KCL 1,000 ML IV SCH ×3 (02:04→21:50)
--- NOTE | 2017-01-31 13:43 | Hospitalist Progress Note ---
Hospitalist Progress Note Date of Service Jan 31, 2017. (Belinda Anderson PA-C) Subjective Pt evaluation today including: conversation w/ patient, physical exam, chart review, lab review, review of studies, review of inpatient medication list Patient seen and evaluated. No acute events overnight. Continues to pass gas and reporting no abdominal pain, decreased abdominal bloating, and no N/V. Tolerating clear liquid diet without issue. Constitutional: No fever, No chills Respiratory: No shortness of breath Cardiovascular: No chest pain Abdomen: No pain, No nausea, No vomiting Male : No dysuria Neurologic: + memory loss (chronic - dementia) Heme: No abnormal bleeding/bruising (Belinda Anderson PA-C) Medications Current Inpatient Medications Medications (Trade) Dose Ordered Sig/Raudel Route Start Time Stop Time Status Last Admin Dose Admin Enoxaparin Sodium (Lovenox Inj) 40 mg Q24H SQ 01/27/17 18:00 02/26/17 17:59 01/30/17 18:56 40 MG Ondansetron HCl (Zofran Inj) 4 mg Q6H PRN IV 01/27/17 15:00 02/26/17 14:59 Morphine Sulfate (MoRPHine SULFATE INJ) 2 mg Q4 PRN IV 01/27/17 15:00 02/10/17 14:59 Morphine Sulfate (MoRPHine SULFATE INJ) 4 mg Q4 PRN IV 01/27/17 15:00 02/10/17 14:59 Potassium Chloride/Sodium Chloride 1,000 ml @ 100 mls/hr Q10H IV 01/27/17 18:00 02/26/17 17:59 01/31/17 11:45 100 MLS/HR Hydromorphone HCl (Dilaudid Inj) 0.5 mg Q4 PRN IV 01/28/17 12:30 02/11/17 12:29 01/29/17 15:20 0.5 MG Hydromorphone HCl (Dilaudid Inj) 1 mg Q4 PRN IV 01/28/17 12:30 02/11/17 12:29 Acetaminophen 650 mg/Empty Bag 65 ml @ 260 mls/hr Q6H PRN IV 01/28/17 16:00 02/27/17 15:59 01/30/17 23:27 260 MLS/HR Hydralazine HCl (HydrALAZINE INJ) 10 mg Q6 PRN IV. 01/29/17 14:15 02/28/17 14:14 01/30/17 23:27 10 MG (Belinda Anderson PA-C) Objective Vital Signs Date Time Temp Pulse Resp B/P (MAP) Pulse Ox O2 Delivery O2 Flow Rate FiO2 01/31/17 11:12 36.7 83 20 164/68 (100) 96 Room Air 96 83 01/31/17 08:09 96 Room Air 01/31/17 07:56 36.8 87 19 120/67 (84) 96 Room Air 01/31/17 07:50 Room Air 01/31/17 00:30 120/57 (78) 01/30/17 23:35 Room Air 01/30/17 22:50 36.9 86 18 162/72 (102) 96 Room Air 01/30/17 17:07 79 163/72 (102) 01/30/17 15:45 96 Room Air 01/30/17 14:56 36.6 79 18 162/72 (102) 96 Room Air (Belinda Anderson, PA-C) Physical Exam General Appearance: WD/WN, no apparent distress Neck: supple, no JVD, trachea midline Respiratory/Chest: lungs clear, normal breath sounds, no respiratory distress, no accessory muscle use Cardiovascular: regular rate, rhythm, no gallop, no murmur Abdomen: normal bowel sounds, non tender, soft, + distended (slightly improved) Neurologic/Psychiatric: alert (Belinda Anderson, PA-C) Assessment and Plan Mr. Miller is a 76 y/o male with recurrent SBO who prevents with another SBO Partial SBO 2/2 Likely Adhesional: - Passing flatus but no BM - XR supporting improving and gas levels pushing thorough GI tract - continue clear liquid diet - 1/2 NSS + 20 mEq KCL at 100 mL/hr - Tylenol and Dilaudid PRN - Gen Surg signed off - agree with conservative treatment Lateral Lead T Wave Inversion: - Chest pain free and troponins negative - review of previous EKGs reveal intermittent ones with same T wave inversions - Echo reveals significant EF decrease and reports LVH and CAD - While remaining asymptomatic will defer to outpatient setting if needed for further evaluation CAD with Chronic Systolic CHF: STABLE - reports no issues with fluid retention and is maintained with medicinal coverage - Will continue Toprol XL 25 mg HS and Cozaar 50 mg daily Dementia: STABLE Mild Elevation of AST: Outpatient F/U Mild Non-Fasting Hyperglycemia: Outpatient F/U Mild Anemia: Outpatient F/U DVT Prophylaxis: Lovenox 40 mg SC daily Disposition: - Continue conservative treatment and continue clear liquid diet Continued [facility] stay due to: inadequate po fluid intake Discharge planning: home (Belinda Anderson, PA-C) PA Physician Supervision Note: I interviewed and examined the patient. Discussed with Belinda Anderson PAC and agree with findings and plan as documented in the note. Any exceptions or clarifications are listed here: None Patient is doing much better today having less pain having some small stool in the toilet but not reliably his diet will need to be advanced this pain is much better vital signs are reviewed Likely resolving small bowel obstruction will continue hydration advancement of diet pain control if he has good bowel movements by 02/01 separation discharge to be undertaken Documented By: Bjorn Govea (Bjorn Govea M.D.)
[2017-01-31] MEDS: HydrALAZINE HCL 20 MG/ML VIAL IV. PRN ×2 (15:31→21:46)
[2017-01-31] MEDS: ENOXAPARIN 40 MG/0.4 ML SYR SQ SCH (17:42)
[2017-01-31] MEDS: ACETAMINOPHEN IV 650 MG in EMPTY BAG 0 ML IV PRN (17:50)
[2017-01-31] MEDS ORDERED: METOPROLOL SUCC 25MG EXT REL TAB PO SCH (21:00)
[2017-01-31] MEDS: HYDROmorphone INJ 0.5 MG/0.5 ML SYR IV PRN (22:40)
[2017-02-01 07:14] VITALS: BP 137/64; PULSE 80; TEMP 36.7; O2SAT 96
[2017-02-01] MEDS: SODIUM CHLOR 0.45% + 20MEQ KCL 1,000 ML IV SCH (08:13)
[2017-02-01] MEDS ORDERED: LOSARTAN POTASSIUM 50 MG TAB PO SCH (09:00)
[2017-02-01] MEDS ORDERED: SERTRALINE HCL 100 MG TAB PO SCH (09:00)
[2017-02-01 09:10] LABS: BUN/CREATININE RATIO 12.4 (10-20); CALCIUM 9.1 mg/dl (8.5-10.1); CREATININE 0.86 mg/dl (0.60-1.40); POTASSIUM 4.1 mmol/L (3.5-5.1)
--- NOTE | 2017-02-01 09:24 | Discharge Instructions ---
Discharge Instructions Date of Service Feb 01, 2017. Admission Reason for Admission: Sbo (Small Bowel Obstruction) Discharge Discharge Diagnosis / Problem: Partial Small Bowel Obstruction Discharge Goals Goal(s): Decrease discomfort, Improve function, Increase independence Activity Recommendations Activity Limitations: resume your previous activity . Instructions / Follow-Up Instructions / Follow-Up Partial Small Bowel Obstruction: - Initially would recommend a low fiber diet to help reduce getting a lot of gas. You can eat as tolerated but take your time with eating to make sure you do not get nauseous or vomit. - You may resume your normal activities. Try to drink adequate fluids and prevent constipation when you can. - If your symptoms return - increased abdominal pain, abdominal bloating, nausea , vomiting - please return to the hospital Follow-Up: - Please follow-up with your family doctor in 7-10 days Current Hospital Diet Patient's current hospital diet: Regular Diet Discharge Diet Recommended Diet: Regular Diet, Low Fiber Diet Pending Studies Studies pending at discharge: no Medical Emergencies . Who to Call and When: Medical Emergencies: If at any time you feel your situation is an emergency, please call 911 immediately. . Non-Emergent Contact Non-Emergency issues call your: Primary Care Provider Call Non-Emergent contact if: you have a fever, your pain is concerning you, you have any medication questions . . "Provider Documentation" section prepared by Belinda Anderson. . VTE Core Measure Inpt VTE Proph given/why not?: Enoxaparin (Lovenox)SQ
[2017-02-01 11:18] VITALS: BP 149/77; PULSE 78; TEMP 36.9; O2SAT 96
[2017-02-01 12:37] VITALS: BP 149/77; PULSE 78; TEMP 36.9; O2SAT 96
--- NOTE | 2017-02-01 15:48 | Discharge Summary ---
Discharge Summary Date of Service Feb 01, 2017. (Belinda Anderson PA-C) Discharge Summary Admission Date: Jan 27, 2017 at 14:58 Discharge Date: Feb 01, 2017 Discharge Disposition: Home Principal Diagnosis: Partial Small Bowel Obstruction Problems/Secondary Diagnoses: 1. Dementia 2. Recurrent SBO 3. Cardiomyopathy 4. Systolic Congestive HF - EF 30% 5. HTN 6. ABDON 7. CKD 8. GERD 9. H/O TIA 10. S/P Rectal Surgery 11. S/P Urethral Stricture Repair 12. S/P Tonsillectomy Immunizations: Have You Had Influenza Vaccine: Unknown History of Tetanus Vaccine?: Unknown History of Pneumococcal: Unknown History of Hepatitis B Vaccine: Unknown Procedures: ABDOMEN 2VIEW W/PA CHEST RTN FINDINGS: The heart is enlarged. There is no focal pulmonary consolidation. There is no free intraperitoneal air. Erect and supine views the abdomen reveal mildly dilated small bowel loops measuring up to 41 mm in diameter. There are multiple small bowel air-fluid levels. There is a possibility of colonic gas. The findings are consistent with a small bowel obstruction. IMPRESSION: Small bowel obstructive pattern. No free air identified. Consultations: 1. General Surgery (Belinda Anderson PA-C) Medication Reconciliation Continued Medications: Aspirin (Aspirin Ec) 81 Mg Tab 81 MG PO QPM Cranberry (Vaccinium Macrocarp (Cranberry) 600 Mg Tab 600 MG PO QPM Furosemide (Lasix) 20 Mg Tab 20 MG PO BID, TAB Gemfibrozil (Lopid) 600 Mg Tab 600 MG PO QAM, TAB Levothyroxine Sodium (Levothyroxine Sodium) 25 Mcg Tab 25 MCG PO DAILY for 90 Days, #90 TAB 3 Refills Losartan Potassium (Cozaar) 50 Mg Tab 50 MG PO DAILY, TAB Metoprolol Succinate (Toprol Xl) 25 Mg Tabcr 25 MG PO HS, #30 TAB Multiple Vitamins W/ Minerals (Centrum Silver Adult 50+) 1 Tab Tab 1 TAB PO DAILY Pantoprazole (Protonix) 40 Mg Tab 40 MG PO DAILY, #30 TAB Promethazine (Phenergan ) 12.5 Mg Tab 12.5 MG PO Q6H PRN for Nausea or Vomiting, TAB Sertraline HCl (Sertraline HCl) 100 Mg Tab 200 MG PO QAM Triamcinolone (Triamcinolone Acetonide) 60 Appln/60 Ml Lotn 1 APPLN TOP DAILY PRN for Itching Discharge Exam Review of Systems: Constitutional: No fever, No chills Respiratory: No cough, No shortness of breath Cardiovascular: No chest pain Abdomen: No pain, No nausea, No vomiting, No diarrhea, No constipation, No GI bleeding Musculoskeletal: No swelling, No calf pain Genitourinary - Male: No dysuria Hematologic / Lymphatic: No abnormal bleeding/bruising Physical Exam: General Appearance: WD/WN, no apparent distress Neck: supple, no JVD, trachea midline Respiratory/Chest: lungs clear, normal breath sounds, no respiratory distress, no accessory muscle use Cardiovascular: regular rate, rhythm, no gallop, no murmur Abdomen / GI: normal bowel sounds, non tender, soft Extremities: no pedal edema Neurologic/Psychiatric: alert, oriented x 3 Skin: normal color, warm/dry (Belinda Anderson, WALLY) Hospital Course ADMISSION: The patient is a very pleasant 76-year-old male with what sounds to be mild progressing towards moderate Alzheimers' so history is obtained partly from the patient and in large part from his . He was in his usual state of health until yesterday. She noted he was starting to take more gas medicines and unfortunately she notes that is often what he starts to do whenever he is working towards a small-bowel obstruction. He has had 3 or 4 of these in the not too distant past and then this morning he was having a lot more abdominal pain. She noticed his belly was distended. He was having some retching. He has not formally vomited, but he was having dry heaves and she felt that this was looking very reminiscent of his prior bowel obstruction and so she brought him here to the ER for further evaluation. Here he had findings consistent with small-bowel obstruction, we were asked to see him for further evaluation and treatment. Incidentally, he had an EKG with some flipped Ts in 1 and aVL. This was done because of question of chest pain whenever he first was being evaluated in triage. However, he denies chest pain or shortness of breath. His denies seeing him look like he had chest pain or shortness of breath. She does note that he looked a little bit ulloa and ashen, but now his color is better. HOSPITAL COURSE: Mr. Miller was admitted for a recurrent partial small bowel obstruction. General Surgery was consulted but no surgical intervention warranted. Patient was treated conservatively with bowel rest and symptom relief. Follow-up KUB supports improvement in bowel gas pattern. During the hospital stay he continued to pass flatus. He ultimately did have a bowel movement and was tolerating a regular diet without difficulty. Patient was discharged home to continue a regular, low fiber, easy to digest diet. Instructions provided to on signs/symptoms that warrant an ED visit. It is likely his recurrent SBO are related to adhesions. During admission, EKG noted lateral T wave inversions concerning for ischemia. However did see similar findings that intermittently resolve when comparing previous EKGs. He did present with chest pain but related this more to abdominal pressure. Troponins were trended and negative. Could consider Lexiscan as outpatient if warranted given his previous KS and systolic dysfunction. Patient is tolerating diet, abdominal pain free, and moving his bowels and will be D/Cd home. Total Time Spent: Greater than 30 minutes This includes examination of the patient, discharge planning, medication reconciliation, and communication with other providers. (Belinda Anderson, ROELC) PA Physician Supervision Note: I interviewed and examined the patient. Discussed with Belinda Anderson PAC and agree with findings and plan as documented in the note. Any exceptions or clarifications are listed here: None Patient has done well with conservative management of small bowel obstruction is able tolerate a full diet having no pain and did move his bowels 1 Patient is seen prior to going home his vital signs are stable his abdomen exam is quite normally his is present today, Initial follow up his primary care physician he is told eat a low residual diet for the next few days Documented By: Bjorn Govea (Bjorn Govea M.D.) Discharge Instructions Please refer to the electronic Patient Visit Report (Discharge Instructions) for additional information. (Belinda Anderson PA-C) Additional Copies To Miley Potts M.D.
== END 2017-02-01 13:34 | disposition home or self-care (01) | DRG 389 ==
LOC: C.EDB 13:22 → C.MSW 14:58
PROVIDERS: ADMIT Family Medicine; ATTEND Internal Medicine
DX: K56.51 Intestinal adhesions [bands], with partial obstruction (principal); I50.22 Chronic systolic (congestive) heart failure; I42.9 Cardiomyopathy, unspecified; I13.0 Hypertensive heart and chronic kidney disease with heart failure and stage 1 through stage 4 chronic kidney disease, or unspecified chronic kidney disease; R94.31 Abnormal electrocardiogram [ECG] [EKG]; R73.9 Hyperglycemia, unspecified; R74.0 Nonspecific elevation of levels of transaminase and lactic acid dehydrogenase [LDH]; D64.9 Anemia, unspecified; N18.9 Chronic kidney disease, unspecified; I25.10 Atherosclerotic heart disease of native coronary artery without angina pectoris; K21.9 Gastro-esophageal reflux disease without esophagitis; G47.33 Obstructive sleep apnea (adult) (pediatric); G30.9 Alzheimer's disease, unspecified; F02.80 Dementia in other diseases classified elsewhere, unspecified severity, without behavioral disturbance, psychotic disturbance, mood disturbance, and anxiety; Z86.73 Personal history of transient ischemic attack (TIA), and cerebral infarction without residual deficits; Z79.82 Long term (current) use of aspirin; Z79.899 Other long term (current) drug therapy

== ENCOUNTER 2017-07-06 12:02 | Inpatient (IN) | payer OTHER, BC ==
[~2017-07-06] VITALS: Ht 177.8 cm; Wt 87.8 kg
[2017-07-06] MEDS: ALBUT/IPRATROP 3MG/0.5MG NEB 3 ML VIAL INH SCH ×2 (10:18→16:00)
[~2017-07-06 12:02] MED LIST changes: -ERTA1INJ IV; -METO25TA3 PO; +METO25TA4 PO
[2017-07-06] MEDS ORDERED: ALBUT/IPRATROP 3MG/0.5MG NEB 3 ML VIAL INH STA (12:18)
--- NOTE | 2017-07-06 12:19 | EMERGENCY ROOM VISIT NOTE ---
History Report prepared by [place]: Duane Nash Under the Supervision of: Dr. Miguel Issa M.D. First contact with patient: 12:13 Chief Complaint: RESPIRATORY PROBLEMS Stated Complaint: RESPIRATORY Nursing Triage Summary: pt c/o difficulty breathing x 3 days, audible wheezing noted, RA sat 96 at this time, pt coughing and states "feels like chest is heavy." History of Present Illness The patient is a 77 year old male with a history of CHF and Alzheimer disease who presents to the Emergency Room with complaints of worsening respiratory problems over the past 3 days. Per the patient's , the patient has no history of COPD or asthma, and the patient thinks that he is having pneumonia. The patient states that he "cannot breathe". Per the patient's , the patient was very disoriented this morning when he got up. The patient also has a cough, and has blood lined in the mucous. He has also been having episodes of diarrhea. Any nausea, vomiting, or hematochezia was denied on behalf of the patient. The patient adds that he has been having some chest pain. The patient is noted to have a history of a lot of falls recently, the last one being a few days ago, but the patient did not hit the floor or his head. The patient had a heart attack in January of last year. History limited secondary to patient's Alzheimer's. The history is mainly provided by the . Source of History: patient, spouse/significant other History Limited By: other (Alzheimer's) Onset: Past 3 days Position: other (global) Quality: other (respiratory problems) Timing: worsening Associated Symptoms: + cough, + chest pain, + SOB, + diarrhea, No nausea, No vomiting, No hematochezia Review of Systems See HPI for pertinent positives and negatives. A total of ten systems were reviewed and were otherwise negative. Past Medical & Surgical Medical Problems: (1) Chest pain at rest (2) Heart disease (3) HTN (hypertension) (4) Pneumonia (5) SBO (small bowel obstruction) (6) Seizure-like activity (7) Shortness of breath (8) SIRS (systemic inflammatory response syndrome) (9) UTI (urinary tract infection) Family History FH: COPD (chronic obstructive pulmonary disease) Social History Smoking Status: Never Smoker Drug Use: none Marital Status: Housing Status: lives with significant other Occupation Status: retired Current/Historical Medications Scheduled Aspirin (Aspirin Ec), 81 MG PO QPM Cranberry (Vaccinium Macrocarp (Cranberry), 600 MG PO QPM Furosemide (Lasix), 20 MG PO BID Gemfibrozil (Lopid), 600 MG PO QAM Levothyroxine Sodium (Levothyroxine Sodium), 25 MCG PO DAILY Losartan Potassium (Cozaar), 50 MG PO QAM Metoprolol Succinate (Toprol Xl), 25 MG PO HS Multiple Vitamins W/ Minerals (Centrum Silver Adult 50+), 1 TAB PO HS Pantoprazole (Protonix), 40 MG PO QAM Sertraline HCl (Sertraline HCl), 200 MG PO QAM Scheduled PRN Promethazine (Phenergan ), 12.5 MG PO Q6H PRN for Nausea or Vomiting Triamcinolone (Triamcinolone Acetonide), 1 APPLN TOP DAILY PRN for Itching Allergies Coded Allergies: No Known Allergies (Unverified , 07/06/17) Physical Exam Vital Signs Date Time Temp Pulse Resp B/P (MAP) Pulse Ox O2 Delivery O2 Flow Rate FiO2 07/06/17 14:20 94 22 167/77 94 Room Air 07/06/17 12:31 96 Room Air 07/06/17 12:15 80 07/06/17 12:11 96 Room Air 07/06/17 12:05 96 Room Air 07/06/17 12:05 36.9 83 20 142/75 96 Room Air Physical Exam Physical Exam GENERAL: He is oriented to person, place, and time. He appears well-developed and well-nourished. He does not appear distressed. ____ HENT: Exam performed. Head: Normocephalic and atraumatic. Right Ear: External ear normal. No mastoid tenderness. Left Ear: External ear normal. No mastoid tenderness. Mouth/Throat: The oropharynx is clear and moist. No trismus in the jaw. No dental abscesses or uvula swelling. No oropharyngeal exudate or tonsillar abscesses. ____ EYES: Conjunctivae and EOM are normal. Pupils are equal, round, and reactive to light. Right eye exhibits no discharge. Left eye exhibits no discharge. No scleral icterus. ____ NECK: Normal range of motion. Neck supple. No JVD present. No spinous process tenderness present. No carotid bruit present. No rigidity. No tracheal deviation and normal range of motion present. No Brudzinski's sign and no Kernig 's sign noted. ____ CV: Normal rate, regular rhythm, normal heart sounds and intact distal pulses. There is no peripheral edema. Palpable radial pulses bue. ____ PULM/CHEST: Bilateral expiratory wheezes. No stridor. He has no rales. Chest Wall: He exhibits no tenderness. ____ ABD: The abdomen is soft. Bowel sounds are normal. He has no distension. No mass is present. There is no tenderness. There is no rebound, no guarding, no Allison's sign and no tenderness at McBurney's point. Rovsig negative MUSC/SKEL: Normal range of motion. There is no peripheral edema, tenderness or deformity. LYMPH: No cervical adenopathy. ____ NEURO: He is alert and oriented to person, place, and time. He has normal strength. No cranial nerve deficit or sensory deficit. Coordination and gait normal. GCS eye subscore is 4. GCS verbal subscore is 5. GCS motor subscore is 6. Cerebellar tests wnl. ____ SKIN: Skin is warm and dry. He is not diaphoretic. ____ PSYCH: He has a normal mood and affect. He behavior is normal. Judgment and thought content normal. ____ Medical Decision & Procedures ER Provider Diagnostic Interpretation: X-ray: Per my interpretation, radiologist review. CHEST 2 VIEWS ROUTINE HISTORY: 77 years-old Male dyspnea wheezing acute wheezing with shortness of breath COMPARISON: Acute abdominal series radiographs 01/27/2017 TECHNIQUE: PA and lateral views of the chest FINDINGS: Cardiac silhouette is mildly enlarged, unchanged. Atherosclerosis of the aorta. Linear subsegmental bibasilar opacities suggest atelectasis. There is no pneumothorax, pleural effusion, focal airspace consolidation or overt pulmonary edema. Bones of the chest appear grossly intact. Degenerative changes are seen within the shoulders and spine. IMPRESSION: No acute process. The above report was generated using voice recognition software. It may contain grammatical, syntax or spelling errors. Electronically signed by: Jose E Bill M.D. 07/06/2017 1:31 PM Dictated Date/Time: 07/06/2017 1:29 PM Laboratory Results 07/06/17 12:30 Red Blood Count 3.48, Mean Corpuscular Volume 86.2, Mean Corpuscular Hemoglobin 28.7, Mean Corpuscular Hemoglobin Concent 33.3, Mean Platelet Volume 9.1, Neutrophils (%) (Auto) 64.3, Lymphocytes (%) (Auto) 21.4, Monocytes (%) (Auto) 10.0, Eosinophils (%) (Auto) 3.7, Basophils (%) (Auto) 0.3, Neutrophils # (Auto ) 3.78, Lymphocytes # (Auto) 1.26, Monocytes # (Auto) 0.59, Eosinophils # (Auto ) 0.22, Basophils # (Auto) 0.02 07/06/17 12:30 Test 07/06/17 00:00 07/06/17 12:30 07/06/17 13:34 Urine Color YELLOW Urine Appearance CLEAR (CLEAR) Urine pH 5.0 (4.5-7.5) Urine Specific [place] 1.009 (1.000-1.030) Urine Protein NEG (NEG) Urine Glucose (UA) NEG (NEG) Urine Ketones NEG (NEG) Urine Occult Blood NEG (NEG) Urine Nitrite NEG (NEG) Urine Bilirubin NEG (NEG) Urine Urobilinogen NEG (NEG) Urine Leukocyte Esterase MODERATE (NEG) Urine WBC (Auto) 5-10 /hpf (0-5) Urine RBC (Auto) 0-4 /hpf (0-4) Urine Hyaline Casts (Auto) 1-5 /lpf (0-5) Urine Epithelial Cells (Auto) 10-20 /lpf (0-5) Urine Bacteria (Auto) NEG (NEG) White Blood Count 5.89 K/uL (4.8-10.8) Red Blood Count 3.48 M/uL (4.7-6.1) Hemoglobin 10.0 g/dL (14.0-18.0) Hematocrit 30.0 % (42-52) Mean Corpuscular Volume 86.2 fL (80-100) Mean Corpuscular Hemoglobin 28.7 pg (25-34) Mean Corpuscular Hemoglobin Concent 33.3 g/dl (32-36) Platelet Count 243 K/uL (130-400) Mean Platelet Volume 9.1 fL (7.4-10.4) Neutrophils (%) (Auto) 64.3 % Lymphocytes (%) (Auto) 21.4 % Monocytes (%) (Auto) 10.0 % Eosinophils (%) (Auto) 3.7 % Basophils (%) (Auto) 0.3 % Neutrophils # (Auto) 3.78 K/uL (1.4-6.5) Lymphocytes # (Auto) 1.26 K/uL (1.2-3.4) Monocytes # (Auto) 0.59 K/uL (0.11-0.59) Eosinophils # (Auto) 0.22 K/uL (0-0.5) Basophils # (Auto) 0.02 K/uL (0-0.2) RDW Standard Deviation 50.0 fL (36.4-46.3) RDW Coefficient of Variation 15.9 % (11.5-14.5) Immature Granulocyte % (Auto) 0.3 % Immature Granulocyte # (Auto) 0.02 K/uL (0.00-0.02) Prothrombin Time 11.0 SECONDS (9.0-12.0) Prothromb Time International Ratio 1.0 (0.9-1.1) Anion Gap 7.0 mmol/L (3-11) Est Creatinine Clear Calc Drug Dose 58.9 ml/min Estimated GFR () 67.4 Estimated GFR (Non- 58.2 BUN/Creatinine Ratio 19.1 (10-20) Calcium Level 9.0 mg/dl (8.5-10.1) Magnesium Level 2.6 mg/dl (1.8-2.4) Troponin I 0.053 ng/ml (0-0.045) Pro-B-Type Natriuretic Peptide 2260 pg/ml (0-1800) Venous Blood pH 7.42 (7.36-7.41) Venous Blood Partial Pressure CO2 39 mmHg (38.0-50.0) Venous Blood Partial Pressure O2 55 mmHg Venous Blood HCO3 25 mmol/L Venous Blood Oxygen Saturation 85.6 % Venous Blood Base Excess 0.0 mEq/L Laboratory results reviewed by me Medications Administered Medications (Trade) Dose Ordered Sig/Raudel Route Start Time Stop Time Status Last Admin Dose Admin Albuterol/ Ipratropium (Duoneb) 3 ml NOW STAT INH 07/06/17 12:18 07/06/17 12:20 DC 07/06/17 12:33 3 ML Furosemide (Lasix Inj) 40 mg STK-MED ONCE .ROUTE 07/06/17 13:57 07/06/17 13:58 DC 07/06/17 13:57 40 MG ECG Per My Interpretation Indication: SOB/dyspnea Rate (beats per minute): 81 Rhythm: sinus rhythm Findings: other (WV, QRS, and QTC intervals within normal limits, no ST elevation or ST depression) Change: no significant change (on January 28 2017) ED Course 1214: The patient was evaluated in room B12B. A limited history and physical exam was performed. 1218: DuoNeb 3 ml INH. 1348: Labs within normal limits with the exception of Troponin 0 0.053 and proBNP of 2260. Patient continues to report no chest pain. Imaging within normal limits. Patient continues to have wheezing. Will repeat DuoNeb, as the patient states it helped him. This thought that the patient's wheezing is due to cardiac wheezing due to CHF exacerbation. I discussed the patient with Dr. Cristhian SUAREZ cardiology - he agrees to bring the patient in for diuresis. He advises no Heparin at this time. 1352: Upon reexamination, the patient was resting. I discussed the test results and treatment plan with the patient and his . The patient will be evaluated for further management. 1354: I discussed the patient with Dr. Tj SUAREZ core loader - he will evaluate the patient for further treatment. 1400: Furosemide 40 mg/Syringe 4 ml @ 4 mls/min IV. Medical Decision Labs within normal limits with the exception of Troponin 0 0.053 and proBNP of 2260. Patient continues to report no chest pain. Imaging within normal limits. Patient continues to have wheezing. Will repeat DuoNeb, as the patient states it helped him. This thought that the patient's wheezing is due to cardiac wheezing due to CHF exacerbation. I discussed the patient with Dr. Cristhian SUAREZ cardiology - he agrees to bring the patient in for diuresis. He advises no Heparin at this time. Medication Reconcilliation Current Medication List: was personally reviewed by me Blood Pressure Screening Patient's blood pressure: Elevated blood pressure Referred to hospitalist. Consults Time Called: 134 Consulting Physician: Dr. Cristhian SUAREZ cardiology Returned Call: [phone] I discussed the patient with Dr. Cristhian SUAREZ cardiology - he agrees to bring the patient in for diuresis. He advises no Heparin at this time. Additional Consults: Time Called: 1351 Consulted Physician: Dr. Tj SUAREZ core loader Returned Call: [phone] Additional Comments: I discussed the patient with Dr. Tj SUAREZ core loader - he will evaluate the patient for further treatment. Impression Primary Impression: CHF exacerbation Scribe Attestation The scribe's documentation has been prepared under my direction and personally reviewed by me in its entirety. I confirm that the note above accurately reflects all work, treatment, procedures, and medical decision making performed by me. The chart was completed utilizing [employer] Speech voice recognition software. Grammatical errors, random word insertions, pronoun errors, and incomplete sentences are an occasional consequence of this system due to software limitations, ambient noise, and hardware issues. Any formal questions or concerns about the content, text, or information contained within the body of this dictation should be directly addressed to the physician for clarification. Departure Information Dispostion Being Evaluated By Hospitalist Referrals No Doctor, Assigned (PCP) Patient Instructions [facility] Problem Qualifiers Primary Impression: CHF exacerbation Heart failure type: unspecified Qualified Codes: I50.9 - Heart failure, unspecified
[2017-07-06 12:40] LABS: BASO % 0.3 %; BASO ABS # 0.02 K/uL (0-0.2); EOS % 3.7 %; EOS ABS # 0.22 K/uL (0-0.5); IG# 0.02 K/uL (0.00-0.02); LYMPH % 21.4 %; LYMPH ABS # 1.26 K/uL (1.2-3.4); MEAN CELL VOLUME 86.2 fL (80-100); MEAN CORPUSCULAR HEMOGLOBIN 28.7 pg (25-34); MEAN CORPUSCULAR HGB CONC 33.3 g/dl (32-36); MEAN PLATELET VOLUME 9.1 fL (7.4-10.4); MONO ABS # 0.59 K/uL (0.11-0.59); NEUT % 64.3 %; NEUT ABS # 3.78 K/uL (1.4-6.5); PLATELET COUNT 243 K/uL (130-400); RED CELL DISTRIBUTION WIDTH CV 15.9 % (11.5-14.5); WHITE BLOOD COUNT 5.89 K/uL (4.8-10.8)
[2017-07-06 12:55] LABS: CREATININE 1.19 mg/dl (0.60-1.40); POTASSIUM 4.5 mmol/L (3.5-5.1)
--- NOTE | 2017-07-06 13:32 | DIAGNOSTIC IMAGING REPORT ---
CHEST 2 VIEWS ROUTINE HISTORY: 77 years-old Male dyspnea wheezing acute wheezing with shortness of breath COMPARISON: Acute abdominal series radiographs 01/27/2017 TECHNIQUE: PA and lateral views of the chest FINDINGS: Cardiac silhouette is mildly enlarged, unchanged. Atherosclerosis of the aorta. Linear subsegmental bibasilar opacities suggest atelectasis. There is no pneumothorax, pleural effusion, focal airspace consolidation or overt pulmonary edema. Bones of the chest appear grossly intact. Degenerative changes are seen within the shoulders and spine. IMPRESSION: No acute process. The above report was generated using voice recognition software. It may contain grammatical, syntax or spelling errors. Electronically signed by: Jose E Bill M.D. 07/06/2017 1:31 PM Dictated Date/Time: 07/06/2017 1:29 PM
[2017-07-06] MEDS ORDERED: FUROSEMIDE 40 MG/4 ML VIAL ONE (13:57)
--- NOTE | 2017-07-06 13:58 | History and Physical ---
History & Physical Date & Time of Service: Jul 06, 2017 at 13:57 Chief Complaint: Respiratory Primary Care Physician: No Doctor, Assigned History of Present Illness Source: patient, family ( at bedside), clinic records, hospital records Patient is a pleasant 77 y/o male, with PMHx of combined diastolic/systolic CHF , HTN, HLD, hypothyroidism, anxiety, Alzheimer's disease, and GERD, who presented to ED from PCP office due to ?CHF exacerbation. Patient was seen at PCPs office due to productive cough (white sputum, with some blood tinge) and SOB x3 days. CXR in ED did not show any acute processes. His states he coughs up some slight bright red blood when he forcefully coughing. Patient's goal weight is 195lbs, today he weighs 206lbs. He is suppose to take an extra Lasix pill with 2-3 lb weight gain- he has not been taking his weight over the last few days due to feeling unwell. He has been taking his medications as directed. He notes his last CHF exacerbation was in January 2017. He follows w / Dr. Ortiz of cardiology. He notes central/L-sided chest pain- worse with movements/coughing. Patient denies any fever, chills, sweats, lightheadedness, dizziness, vision changes, palpitations, edema, wheezing, abdominal pain, nausea , vomiting, diarrhea, urinary symptoms, melena, numbness/tingling, weakness, muscle/joint pain, anxiety/depression, active bleeding, or new skin discoloration/changes. Past Medical/Surgical History Medical Problems: combined diastolic/systolic CHF EF of 25-30% HTN HLD hypothyroidism anxiety Alzheimer's disease GERD H/O TIA S/P Rectal Surgery S/P Urethral Stricture Repair S/P Tonsillectomy Family History FH: COPD (chronic obstructive pulmonary disease) Social History Smoking Status: Never Smoker Drug Use: none Marital Status: Housing status: lives with family Occupational Status: retired Immunizations History of Influenza Vaccine: Unknown History of Tetanus Vaccine?: Unknown History of Pneumococcal: Unknown History of Hepatitis B Vaccine: Unknown Allergies Coded Allergies: No Known Allergies (Unverified , 07/06/17) Home Medications Scheduled Aspirin (Aspirin Ec), 81 MG PO QPM Cranberry (Vaccinium Macrocarp (Cranberry), 600 MG PO QPM Furosemide (Lasix), 20 MG PO BID Gemfibrozil (Lopid), 600 MG PO QAM Levothyroxine Sodium (Levothyroxine Sodium), 25 MCG PO DAILY Losartan Potassium (Cozaar), 50 MG PO QAM Metoprolol Succinate (Toprol Xl), 25 MG PO HS Multiple Vitamins W/ Minerals (Centrum Silver Adult 50+), 1 TAB PO HS Pantoprazole (Protonix), 40 MG PO QAM Sertraline HCl (Sertraline HCl), 200 MG PO QAM Scheduled PRN Promethazine (Phenergan ), 12.5 MG PO Q6H PRN for Nausea or Vomiting Triamcinolone (Triamcinolone Acetonide), 1 APPLN TOP DAILY PRN for Itching Physical Exam Vital Signs Date Time Temp Pulse Resp B/P (MAP) Pulse Ox O2 Delivery O2 Flow Rate FiO2 07/06/17 12:31 96 Room Air 07/06/17 12:15 80 07/06/17 12:11 96 Room Air 07/06/17 12:05 96 Room Air 07/06/17 12:05 36.9 83 20 142/75 96 Room Air General Appearance: no apparent distress, + obese Head: normocephalic, atraumatic Eyes: normal inspection, PERRL ENT: hearing grossly normal Neck: supple Respiratory/Chest: no respiratory distress, no accessory muscle use, + wheezing (expiratory wheeze throughout ) Cardiovascular: regular rate, rhythm Abdomen/GI: normal bowel sounds, non tender, soft Back: normal inspection Extremities/Musculoskelatal: no calf tenderness, no pedal edema Neurologic/Psych: alert, normal mood/affect, oriented x 3 Skin: normal color, warm/dry, no rash Diagnostics Laboratory Results Results Past 24 Hours Test 07/06/17 12:30 07/06/17 13:34 Range/Units White Blood Count 5.89 4.8-10.8 K/uL Red Blood Count 3.48 4.7-6.1 M/uL Hemoglobin 10.0 14.0-18.0 g/dL Hematocrit 30.0 42-52 % Mean Corpuscular Volume 86.2 80-100 fL Mean Corpuscular Hemoglobin 28.7 25-34 pg Mean Corpuscular Hemoglobin Concent 33.3 32-36 g/dl Platelet Count 243 130-400 K/uL Mean Platelet Volume 9.1 7.4-10.4 fL Neutrophils (%) (Auto) 64.3 % Lymphocytes (%) (Auto) 21.4 % Monocytes (%) (Auto) 10.0 % Eosinophils (%) (Auto) 3.7 % Basophils (%) (Auto) 0.3 % Neutrophils # (Auto) 3.78 1.4-6.5 K/uL Lymphocytes # (Auto) 1.26 1.2-3.4 K/uL Monocytes # (Auto) 0.59 0.11-0.59 K/uL Eosinophils # (Auto) 0.22 0-0.5 K/uL Basophils # (Auto) 0.02 0-0.2 K/uL RDW Standard Deviation 50.0 36.4-46.3 fL RDW Coefficient of Variation 15.9 11.5-14.5 % Immature Granulocyte % (Auto) 0.3 % Immature Granulocyte # (Auto) 0.02 0.00-0.02 K/uL Sodium Level 140 136-145 mmol/L Potassium Level 4.5 3.5-5.1 mmol/L Chloride Level 110 98-107 mmol/L Carbon Dioxide Level 23 21-32 mmol/L Anion Gap 7.0 3-11 mmol/L Blood Urea Nitrogen 23 7-18 mg/dl Creatinine 1.19 0.60-1.40 mg/dl Est Creatinine Clear Calc Drug Dose 58.9 ml/min Estimated GFR () 67.4 Estimated GFR (Non- 58.2 BUN/Creatinine Ratio 19.1 10-20 Random Glucose 108 70-99 mg/dl Calcium Level 9.0 8.5-10.1 mg/dl Troponin I 0.053 0-0.045 ng/ml Pro-B-Type Natriuretic Peptide 2260 0-1800 pg/ml Venous Blood pH 7.42 7.36-7.41 Venous Blood Partial Pressure CO2 39 38.0-50.0 mmHg Venous Blood Partial Pressure O2 55 mmHg Venous Blood HCO3 25 mmol/L Venous Blood Oxygen Saturation 85.6 % Venous Blood Base Excess 0.0 mEq/L Diagnostic Radiology CHEST 2 VIEWS ROUTINE HISTORY: 77 years-old Male dyspnea wheezing acute wheezing with shortness of breath COMPARISON: Acute abdominal series radiographs 01/27/2017 TECHNIQUE: PA and lateral views of the chest FINDINGS: Cardiac silhouette is mildly enlarged, unchanged. Atherosclerosis of the aorta. Linear subsegmental bibasilar opacities suggest atelectasis. There is no pneumothorax, pleural effusion, focal airspace consolidation or overt pulmonary edema. Bones of the chest appear grossly intact. Degenerative changes are seen within the shoulders and spine. IMPRESSION: No acute process. The above report was generated using voice recognition software. It may contain grammatical, syntax or spelling errors. Electronically signed by: Jose E Bill M.D. 07/06/2017 1:31 PM Dictated Date/Time: 07/06/2017 1:29 PM The status of this report is Signed. Draft = Not yet reviewed or approved by Radiologist. Signed = Reviewed and approved by Radiologist. EKG JOHAN PANTOJA ID:[id number] 06-JUL-2017 12:26:54 [facility] Normal sinus rhythm Septal infarct (cited on or before 20-OCT-2016) ST & T wave abnormality, consider lateral ischemia Abnormal ECG When compared with ECG of 28-JAN-2017 19:09, Criteria for Inferior infarct are no longer Present Questionable change in initial forces of Anterior leads 25mm/s 10mm/mV 150Hz 8.0 SP2 12SL 241 KAROL: 0 Referred by: Unconfirmed Vent. rate 81 BPM IL interval 166 ms QRS duration 114 ms QT/QTc 376/436 ms P-R-T axes 56 -12 109 1940 (77 yr) Male Room: Loc:15 Customer Relations Coordinator:COLE Gan ind: Impression Assessment and Plan Patient is a pleasant 77 y/o male, with PMHx of combined diastolic/systolic CHF , HTN, HLD, hypothyroidism, anxiety, Alzheimer's disease, and GERD, who presented to ED from PCP office due to ?CHF exacerbation. Acute on chronic combined systolic/diastolic CHF exacerbation w/ EF 25-30%- follows w/ Dr. Ortiz: - Admit to tele for cardiac monitoring - O2 protocol - Trend cardiac enzymes - EKG QAM and PRN for chest pain - IV Morphine and Nitro PRN for chest pain - IV Lasix 40 mg BID; hold PO Lasix 20 mg BID - Monitor I&Os and daily weights- goal weight of 195lbs - Last ECHO in 09/2016- w/ severely reduced EF and grade I diastolic dysfunction - will repeat ECHO w/ elevated trop - DuoNebs QID and PRN for sob/wheezing - Consult cardiology, appreciate recommendations HTN: Continue Metoprolol 25 mg HS and Losartan 50 mg daily Hypothyroidism: - Last TSH in 04/2016- will recheck tomorrow AM - Continue Synthroid 25 mcg daily HLD: Continue Lipid Anxiety: Continue Zoloft 200 mg daily GERD: Continue Protonix daily DVT prophylaxis: Heparin SQ TID Code status: LEVEL V, DNR Dispo: From home, lives w/ - PT/OT and CM consulted i personally examined pt and verified all becker points w T Murar[place] PAC sob diffuse harsh breath sounds, faint wheeze sob - acute on chronic mixed CHF - diurese, follow otherwise as above Resuscitation Status LEVEL V, DNR VTE Prophylaxis Will order VTE Prophylaxis: Yes
[2017-07-06] MEDS ORDERED: FUROSEMIDE INJ 40 MG in SYRINGE 0 ML IV ONE (14:00)
[2017-07-06] MEDS ORDERED: MoRPHine SULFATE 2 MG/ML CARP IV PRN (14:30)
[2017-07-06] MEDS ORDERED: NITROGLYCERIN 0.4 MG SL PER TAB CHARGE SL PRN (14:30)
[2017-07-06] MEDS ORDERED: POLYETHYLENE (MIRALAX) 17 GM PACK PO PRN (14:30)
[2017-07-06] MEDS ORDERED: MAGNESIUM HYDROXIDE SUSP 30 ML UDC PO PRN (14:30)
[2017-07-06] MEDS ORDERED: ONDANSETRON INJ 2 MG/ML 2 ML VIAL IV PRN (14:30)
[2017-07-06] MEDS ORDERED: ALUMINUM/MAGNESIUM/SIMETH (MAALOX MAX) 30 ML UDC PO PRN (14:30)
[2017-07-06] MEDS ORDERED: ACETAMINOPHEN 325 MG TAB PO PRN (14:30)
[2017-07-06] MEDS ORDERED: ALBUT/IPRATROP 3MG/0.5MG NEB 3 ML VIAL INH PRN (14:45)
[2017-07-06 16:28] VITALS: BP 157/79; PULSE 82; TEMP 36.9; O2SAT 96; Ht 177.8 cm; Wt 87.8 kg
[2017-07-06 19:12] VITALS: PULSE 82; O2SAT 96
[2017-07-06 19:46] VITALS: BP 170/82; PULSE 88; TEMP 36.5; O2SAT 95
[2017-07-06 20:18] VITALS: O2SAT 95
[2017-07-06] MEDS ORDERED: HEPARIN SOD 5000 UNIT/0.5 ML CARP SQ SCH (21:00)
[2017-07-06] MEDS ORDERED: FUROSEMIDE INJ 40 MG in SYRINGE 0 ML IV SCH (21:00)
[2017-07-06 21:08] LABS: CKMB 1.9 ng/ml (0.5-3.6)
[2017-07-06] MEDS: METOPROLOL SUCC 25MG EXT REL TAB PO SCH (21:26)
[2017-07-06] MEDS: ASPIRIN 81 MG ECTAB PO SCH (21:27)
[2017-07-06] MEDS: CEROVITE ADV FORMULA TAB PO SCH (21:27)
[2017-07-06] MEDS: HEPARIN SOD 5000 UNIT/0.5 ML CARP SQ SCH (21:28)
[2017-07-06 23:45] VITALS: BP 138/68; PULSE 83; TEMP 37.2; O2SAT 93
[2017-07-07] VITALS (15 sets, daily range): BP systolic 128–141; BP diastolic 60–88; PULSE 74–105; TEMP 36.7–37.1; O2SAT 91–96
[2017-07-07] MEDS ORDERED: COUGH DROP (SUGAR FREE) LOZ 24 LOZ/1 BOX LOZ PRN (00:45)
[2017-07-07 04:39] LABS: HEMATOCRIT 34.9 % (42-52); HEMOGLOBIN 11.6 g/dL (14.0-18.0); MEAN CELL VOLUME 86.4 fL (80-100); MEAN CORPUSCULAR HEMOGLOBIN 28.7 pg (25-34); MEAN CORPUSCULAR HGB CONC 33.2 g/dl (32-36); MEAN PLATELET VOLUME 9.2 fL (7.4-10.4); PLATELET COUNT 322 K/uL (130-400); RED CELL DISTRIBUTION WIDTH CV 15.7 % (11.5-14.5); RED CELL DISTRIBUTION WIDTH SD 49.9 fL (36.4-46.3); WHITE BLOOD COUNT 7.29 K/uL (4.8-10.8)
[2017-07-07 05:02] LABS: BLOOD UREA NITROGEN 32 mg/dl (7-18); CALCIUM 9.5 mg/dl (8.5-10.1); CARBON DIOXIDE 27 mmol/L (21-32); CREATININE 1.66 mg/dl (0.60-1.40); GLUCOSE 123 mg/dl (70-99); POTASSIUM 4.2 mmol/L (3.5-5.1); SODIUM 136 mmol/L (136-145)
[2017-07-07 05:12] LABS: CKMB 1.7 ng/ml (0.5-3.6)
[2017-07-07] MEDS: LEVOTHYROXINE 25 MCG TAB PO SCH (06:15)
[2017-07-07] MEDS: HEPARIN SOD 5000 UNIT/0.5 ML CARP SQ SCH ×3 (06:17→20:59)
[2017-07-07] MEDS: ALBUT/IPRATROP 3MG/0.5MG NEB 3 ML VIAL INH SCH ×4 (07:05→19:10)
[2017-07-07] MEDS: [UNRECOGNIZED DRUG - REMARK] SCH ×3 (08:00→15:46)
[2017-07-07] MEDS: GEMFIBROZIL 600 MG TAB PO SCH (08:38)
[2017-07-07] MEDS: PANTOprazole SOD 40 MG TAB PO SCH (08:39)
[2017-07-07] MEDS: LOSARTAN POTASSIUM 50 MG TAB PO SCH (08:39)
[2017-07-07] MEDS: SERTRALINE HCL 100 MG TAB PO SCH (08:39)
[2017-07-07] MEDS: GUAIFENESIN 600 MG TABCR PO SCH ×2 (14:15→21:07)
--- NOTE | 2017-07-07 15:20 | ECHOCARDIOGRAM REPORT ---
*NOTICE TO RECEIVING LIBERTARIAN AGENCY This information is strictly Confidential and protected under [place] law. [place] law prohibits you from making any further disclosure of this information unless further disclosure is expressly permitted by the written consent of the person to whom it pertains or is authorized by law. A general authorization for the release of medical or other information is not sufficient for this purpose. Hospital accepts no responsibility if the information is made available to any other person, INCLUDING THE PATIENT. Interpretation Summary * Name: JOHAN PANTOJA SR Study Date: 07/07/2017 08:12 AM BP: 141/86 mmHg * Patient Location: C.2E\S\E207\S\1 HR: 81 * : 1940 (M/d/yyy) Gender: Male Height: 70 in * Age: 77 yrs Ethnicity: [place] Weight: 207 lb * Ordering Physician: Yaneth Cabral * Referring Physician: Self, Referred * Performed By: Shawn Markham RCS * * Reason For Study: CHF * BSA: 2.1 m2 * -- Conclusions -- * 1. Technically difficult study despite use of Definity ultrasound contrast. * 2. Grossly normal size with borderline LVH. Severe global LV dysfunction. LVEF 25-30%. * 3. RV not well visualized. Grossly normal size and function. * 4. No significant valvular pathology. * 5. Normal estimated PA and RA pressures. * 6. Compared with prior study on 10/22/2016: Current study more technically limited but no significant changes. Procedure Details * A complete two-dimensional transthoracic echocardiogram was performed (2D, M-mode, Doppler and color flow Doppler). * The study was technically difficult. * A contrast injection of Definity was performed to improve assessment of LV function. * Contrast was injected into an intravenous site in the left arm. * One vial of Definity ultrasound contrast was diluted in normal saline to a total volume of 10 ml. A total of '1' ml of solution was administered during imaging. * Lot # [id number] of Definity utilized for procedure. * Expiration date 1APR19. * The attending nurse who injected the contrast agent was Christiano Taylor RN. Left Ventricle * The left ventricle is not well visualized. * The left ventricle is grossly normal size. * There is borderline concentric left ventricular hypertrophy. * Ejection Fraction = 25-30%. * There is severe global hypokinesis of the left ventricle. Right Ventricle * The right ventricle is not well visualized. * The right ventricle is grossly normal size. * The right ventricular systolic function is normal as assessed by tricuspid annular plane systolic excursion (TAPSE) (normal >1.5 cm). Atria * The left atrium is not well visualized. * Right atrium not well visualized. * No ASD detected; PFO is not assessed. Mitral Valve * The mitral valve is not well visualized. * There is no mitral valve stenosis. * Significant mitral regurgitation is absent. Tricuspid Valve * The tricuspid valve is not well visualized. * There is trace tricuspid regurgitation. Aortic Valve * The aortic valve is not well visualized. * No hemodynamically significant valvular aortic stenosis. * There is no significant aortic regurgitation. Pulmonic Valve * The pulmonary valve is inadequately visualized, but the Doppler data is adequate for interpretation. * Pulmonic stenosis is absent. * There is no pulmonic valvular regurgitation. Great Vessels * The aortic root and proximal ascending aorta are normal sized. * Normal inferior vena cava size and collapsability with sniff indicates a normal right atrial pressure of 3 mmHg MMode 2D Measurements and Calculations IVSd 1.2 cm IVSs 1.4 cm LVIDd 4.8 cm LVIDs 4.4 cm LVPWd 1.1 cm LVPWs 1.4 cm IVS/LVPW 1.1 FS 8.3 % EDV(Teich) 109.6 ml ESV(Teich) 89.4 ml EF(Teich) 18.5 % EDV(cubed) 113.3 ml ESV(cubed) 87.3 ml EF(cubed) 23.0 % % IVS thick 10.9 % % LVPW thick 30.2 % LV mass(C)d 215.3 grams LV mass(C)dI 101.7 grams/m\S\2 LV mass(C)s 245.6 grams LV mass(C)sI 116.0 grams/m\S\2 SV(Teich) 20.2 ml SI(Teich) 9.5 ml/m\S\2 SV(cubed) 26.1 ml SI(cubed) 12.3 ml/m\S\2 Ao root diam 4.3 cm Ao root area 14.6 cm\S\2 ACS 2.0 cm LA dimension 4.1 cm asc Aorta Diam 3.6 cm LA/Ao 0.95 EDV(MOD-sp4) 150.0 ml ESV(MOD-sp4) 121.6 ml EF(MOD-sp4) 18.9 % LVAd ap2 40.9 cm\S\2 LVLd ap2 9.4 cm EDV(MOD-sp2) 147.9 ml EDV(sp2-el) 150.2 ml LVAs ap2 33.5 cm\S\2 LVLs ap2 8.8 cm ESV(MOD-sp2) 108.8 ml ESV(sp2-el) 108.6 ml EF(MOD-sp2) 26.4 % EF(sp2-el) 27.7 % SV(MOD-sp4) 28.4 ml SI(MOD-sp4) 13.4 ml/m\S\2 SV(MOD-sp2) 39.0 ml SI(MOD-sp2) 18.4 ml/m\S\2 SV(sp2-el) 41.6 ml SI(sp2-el) 19.6 ml/m\S\2 Doppler Measurements and Calculations MV E max marvel 44.6 cm/sec MV A max marvel 76.4 cm/sec MV E/A 0.58 MV P1/2t max marvel 43.0 cm/sec MV P1/2t 76.6 msec MVA(P1/2t) 2.9 cm\S\2 MV dec slope 164.6 cm/sec\S\2 MV dec time 0.20 sec Ao V2 max 106.0 cm/sec Ao max PG 4.5 mmHg Ao max PG (full) 0.56 mmHg LV V1 max PG 3.9 mmHg LV V1 max 99.2 cm/sec PA V2 max 93.4 cm/sec PA max PG 3.5 mmHg TR max marvel 176.7 cm/sec
[2017-07-07] MEDS: METHYLPREDNISOLONE IV 40 MG in SYRINGE 0 ML IV SCH (15:46)
[2017-07-07] MEDS: DEXAMETHASONE CONC SOLN 3.75 MG, NYSTATIN SUSP 30 ML, DiphenhydrAMINE HCL SYRUP 300 MG,... PO SCH ×10 (15:47→20:55)
[2017-07-07] MEDS ORDERED: MAGIC MOUTHWASH PO SCH (16:15)
--- NOTE | 2017-07-07 16:27 | DIAGNOSTIC IMAGING REPORT ---
CHEST 2 VIEWS ROUTINE HISTORY: bronchitis, RLL rales; eval for any superimposed pneumonia COMPARISON: Chest 07/06/2017. FINDINGS: A few linear densities the left lung base favor subsegmental atelectasis. The heart remains mildly enlarged. No pleural effusions. No pneumothorax. No evidence for pulmonary edema. IMPRESSION: No significant change compared to the prior study. No acute process. Electronically signed by: Breezy Khan M.D. 07/07/2017 4:25 PM Dictated Date/Time: 07/07/2017 4:25 PM
[2017-07-07] MEDS: METOPROLOL SUCC 25MG EXT REL TAB PO SCH (20:56)
[2017-07-07] MEDS: CEROVITE ADV FORMULA TAB PO SCH (20:57)
[2017-07-07] MEDS: ASPIRIN 81 MG ECTAB PO SCH (20:57)
[2017-07-08] VITALS (10 sets, daily range): BP systolic 130–168; BP diastolic 68–91; PULSE 75–90; TEMP 36.5–36.7; O2SAT 91–96
[2017-07-08] MEDS: METHYLPREDNISOLONE IV 40 MG in SYRINGE 0 ML IV SCH ×3 (00:24→20:21)
[2017-07-08] MEDS: LEVOTHYROXINE 25 MCG TAB PO SCH (06:06)
--- NOTE | 2017-07-08 06:06 | Progress Note ---
Subjective Date of Service: Jul 07, 2017. Subjective Pt evaluation today including: conversation w/ patient, conversation w/ family ( by phone), physical exam, chart review, lab review, review of studies ( echo, cxr), review of inpatient medication list Pain: denies PO Intake: eating fine Voiding: no voiding problems tele stable overnight main complaint is cough he states "I don't feel any better than yesterday" weight today is 193 pounds; baseline dry weight 195 pounds c/o ulcer on his tongue Problem List Medical Problems: (1) Abdominal pain Status: Acute (2) Altered mental status Status: Acute (3) Anemia Status: Acute (4) CHF exacerbation Status: Acute (5) Elevated troponin Status: Acute (6) Fever Status: Acute (7) Fever Status: Acute (8) Pulmonary edema Status: Acute (9) Seizure Status: Acute (10) Sepsis Status: Acute (11) Sepsis Status: Acute (12) Small bowel obstruction Status: Acute (13) Substernal chest pain Status: Acute (14) Temporal headache Status: Acute Review of Systems Constitutional: No fever, No chills Respiratory: + cough, + wheezing, No sputum, No dyspnea at rest Cardiac: No chest pain, No orthopnea, No PND, No edema Abdomen: No pain Objective Vital Signs Date Time Temp Pulse Resp B/P (MAP) Pulse Ox O2 Delivery O2 Flow Rate FiO2 07/07/17 20:14 Room Air 07/07/17 19:37 36.7 105 20 132/76 (94) 92 Room Air 07/07/17 19:10 90 18 96 Room Air 07/07/17 16:00 93 Room Air 07/07/17 15:54 37.0 98 20 128/60 (82) 93 Room Air 07/07/17 15:08 84 16 93 Room Air 07/07/17 12:00 93 Room Air 07/07/17 11:52 36.8 86 18 136/88 (104) 91 07/07/17 11:13 79 16 93 Room Air 07/07/17 08:00 93 Room Air 07/07/17 07:55 37.0 81 16 136/81 (99) 93 Room Air 07/07/17 07:06 74 16 93 Room Air 07/07/17 04:35 95 Room Air 07/07/17 03:43 36.9 81 18 141/86 (104) 94 Room Air 07/07/17 00:19 95 Room Air 07/06/17 23:45 37.2 83 17 138/68 (91) 93 Room Air Physical Exam General Appearance: no apparent distress, + pertinent finding (coughing) ENT: + pertinent finding (small ulcer on tongue; MM dry) Neck: no JVD Respiratory/Chest: no respiratory distress, no accessory muscle use, + rales ( focal , right base), + wheezing Cardiovascular: regular rate, rhythm, no gallop, no murmur Abdomen: normal bowel sounds, non tender, soft, no organomegaly Extremities: no pedal edema Neurologic/Psychiatric: alert Laboratory Results Last 24 Hours Test 07/07/17 04:26 White Blood Count 7.29 K/uL Red Blood Count 4.04 M/uL Hemoglobin 11.6 g/dL Hematocrit 34.9 % Mean Corpuscular Volume 86.4 fL Mean Corpuscular Hemoglobin 28.7 pg Mean Corpuscular Hemoglobin Concent 33.2 g/dl RDW Standard Deviation 49.9 fL RDW Coefficient of Variation 15.7 % Platelet Count 322 K/uL Mean Platelet Volume 9.2 fL Sodium Level 136 mmol/L Potassium Level 4.2 mmol/L Chloride Level 104 mmol/L Carbon Dioxide Level 27 mmol/L Anion Gap 5.0 mmol/L Blood Urea Nitrogen 32 mg/dl Creatinine 1.66 mg/dl Est Creatinine Clear Calc Drug Dose 42.2 ml/min Estimated GFR () 45.1 Estimated GFR (Non- 38.9 BUN/Creatinine Ratio 19.2 Random Glucose 123 mg/dl Calcium Level 9.5 mg/dl Creatine Kinase MB 1.7 ng/ml Creatine Kinase MB Ratio Troponin I 0.037 ng/ml Thyroid Stimulating Hormone (TSH) 2.370 uIu/ml Assessment and Plan 77yo male - 1. acute bronchitis - repeat cxr today, r/o concomitant pneumonia. Start IV solumedrol 40mg q8h. Add mucinex. Cont duonebs scheduled. Incentive spirometry. Hold off on antibiotics at this time as he likely has viral etiology. Doubt this is CHF causing his wheezing/symptoms. 2. chronic systolic/diastolic CHF - likely overdiuresed given the rise in creatinine overnight. STOP lasix. BMP in am. Echo largely unchanged from prior echo. 3. acute kidney injury - 2nd to lasix; stop lasix, BMP am. 4. positive troponin - unlikely ACS; this likely represents myocardial demand ischemia in setting of #1 above. 5. HTN - controlled. 6. hypothyroidism - TSH wnl; cont synthroid. 7. alzheimer's disease - stable, without superimposed delirium. 8. GERD - PPI. updated by phone ambulate Continued [facility] stay due to: multiple IV medications needed Discharge planning: home
[2017-07-08] MEDS: HEPARIN SOD 5000 UNIT/0.5 ML CARP SQ SCH ×3 (06:07→22:05)
[2017-07-08] MEDS: ALBUT/IPRATROP 3MG/0.5MG NEB 3 ML VIAL INH SCH ×4 (06:54→19:32)
[2017-07-08 07:07] LABS: CALCIUM 9.2 mg/dl (8.5-10.1); CREATININE 1.62 mg/dl (0.60-1.40); POTASSIUM 4.3 mmol/L (3.5-5.1)
[2017-07-08] MEDS: [UNRECOGNIZED DRUG - REMARK] SCH ×3 (07:26→16:00)
[2017-07-08] MEDS: GUAIFENESIN 600 MG TABCR PO SCH ×2 (08:18→20:21)
[2017-07-08] MEDS: DEXAMETHASONE CONC SOLN 3.75 MG, NYSTATIN SUSP 30 ML, DiphenhydrAMINE HCL SYRUP 300 MG,... PO SCH ×20 (08:18→22:04)
[2017-07-08] MEDS: LOSARTAN POTASSIUM 50 MG TAB PO SCH (08:19)
[2017-07-08] MEDS: PANTOprazole SOD 40 MG TAB PO SCH (08:19)
[2017-07-08] MEDS: GEMFIBROZIL 600 MG TAB PO SCH (08:19)
[2017-07-08] MEDS: SERTRALINE HCL 100 MG TAB PO SCH (08:19)
[2017-07-08] MEDS ORDERED: DOXYCYCLINE HYCLATE 100 MG CAP PO STA (11:33)
[2017-07-08] MEDS: ASPIRIN 81 MG ECTAB PO SCH (20:22)
[2017-07-08] MEDS: DOXYCYCLINE HYCLATE 100 MG CAP PO SCH (20:22)
--- NOTE | 2017-07-08 21:01 | Progress Note ---
Subjective Date of Service: Jul 08, 2017. Subjective Pt evaluation today including: conversation w/ patient, conversation w/ family ( by phone), physical exam, chart review, lab review, review of inpatient medication list Pain: tongue ulcer - magic mouthwash helps PO Intake: improved Voiding: no voiding problems tele stable overnight he feels better less cough less wheeze ambulating fine Problem List Medical Problems: (1) Abdominal pain Status: Acute (2) Altered mental status Status: Acute (3) Anemia Status: Acute (4) CHF exacerbation Status: Acute (5) Elevated troponin Status: Acute (6) Fever Status: Acute (7) Fever Status: Acute (8) Pulmonary edema Status: Acute (9) Seizure Status: Acute (10) Sepsis Status: Acute (11) Sepsis Status: Acute (12) Small bowel obstruction Status: Acute (13) Substernal chest pain Status: Acute (14) Temporal headache Status: Acute Review of Systems Constitutional: No fever, No chills Respiratory: + cough, No sputum, No shortness of breath, No dyspnea on exertion Cardiac: No chest pain, No orthopnea, No PND, No edema Abdomen: No pain Objective Vital Signs Date Time Temp Pulse Resp B/P (MAP) Pulse Ox O2 Delivery O2 Flow Rate FiO2 07/08/17 19:32 80 16 94 Room Air 07/08/17 16:00 95 Room Air 07/08/17 14:36 36.7 90 18 135/68 (90) 95 Room Air 07/08/17 14:36 78 18 95 Room Air 07/08/17 12:45 91 Room Air 07/08/17 12:00 Room Air 07/08/17 11:59 36.5 75 16 148/71 (96) 91 Room Air 07/08/17 08:15 36.5 89 18 130/77 (94) 91 Room Air 07/08/17 08:00 Room Air 07/08/17 06:56 78 18 93 Room Air 07/08/17 04:17 Room Air 07/08/17 03:40 36.5 89 17 154/91 (112) 96 Room Air 07/08/17 00:04 Room Air 07/07/17 23:43 37.1 97 20 139/79 (99) 93 Room Air Physical Exam General Appearance: no apparent distress, + pertinent finding (looks good today ) ENT: pharynx normal, + pertinent finding (tongue with small ulcer, right lateral aspect - no change) Neck: no JVD Respiratory/Chest: no respiratory distress, no accessory muscle use, + crackles (focal, RLL), + wheezing (but much improved today) Cardiovascular: regular rate, rhythm, no gallop Abdomen: normal bowel sounds, non tender, soft, no organomegaly Extremities: no pedal edema Neurologic/Psychiatric: alert Laboratory Results Last 24 Hours Test 07/08/17 06:02 Sodium Level 139 mmol/L Potassium Level 4.3 mmol/L Chloride Level 105 mmol/L Carbon Dioxide Level 26 mmol/L Anion Gap 8.0 mmol/L Blood Urea Nitrogen 43 mg/dl Creatinine 1.62 mg/dl Est Creatinine Clear Calc Drug Dose 41.9 ml/min Estimated GFR () 46.4 Estimated GFR (Non- 40.1 BUN/Creatinine Ratio 26.2 Random Glucose 145 mg/dl Calcium Level 9.2 mg/dl Assessment and Plan 77yo male - 1. acute bronchitis - markedly improved overnight Wean IV solumedrol 40mg to q12h dosing. Cont mucinex. Cont duonebs scheduled. Incentive spirometry. Doubt this is CHF causing his wheezing/symptoms. 2. chronic systolic/diastolic CHF - likely overdiuresed given the rise in creatinine shortly after admission and the fact weight is at baseline weight CXR also w/o pulm edema. Echo largely unchanged from prior echo. Holding lasix due to #3. 3. acute kidney injury - 2nd to lasix; stop lasix, BMP am. 4. positive troponin - unlikely ACS; this likely represents myocardial demand ischemia in setting of #1 above. 5. HTN - controlled. 6. hypothyroidism - TSH wnl; cont synthroid. 7. alzheimer's disease - stable, without superimposed delirium. 8. GERD - PPI. 9. ?RLL pneumonia - multiple cxr's w/o focal pneumonia, but has had persistent rales in the RLL. Reasonable to Rx for community-acquired pneumonia with doxy 100mg BID x 10 days. updated by phone again today cleared for home by PT, OT move to med/surg home tomorrow? Continued [facility] stay due to: multiple IV medications needed Discharge planning: home
[2017-07-08] MEDS: CEROVITE ADV FORMULA TAB PO SCH (22:06)
[2017-07-08] MEDS: METOPROLOL SUCC 25MG EXT REL TAB PO SCH (22:08)
[2017-07-09] VITALS (8 sets, daily range): BP systolic 161–164; BP diastolic 88–93; PULSE 73–83; TEMP 36.8; O2SAT 94–97
[2017-07-09] MEDS: [UNRECOGNIZED DRUG - REMARK] SCH ×2 (00:31→07:26)
[2017-07-09] MEDS: HEPARIN SOD 5000 UNIT/0.5 ML CARP SQ SCH ×2 (05:38→13:48)
[2017-07-09] MEDS: DEXAMETHASONE CONC SOLN 3.75 MG, NYSTATIN SUSP 30 ML, DiphenhydrAMINE HCL SYRUP 300 MG,... PO SCH ×10 (05:39→11:23)
[2017-07-09] MEDS: LEVOTHYROXINE 25 MCG TAB PO SCH (05:39)
[2017-07-09 06:46] LABS: HEMATOCRIT 33.5 % (42-52); HEMOGLOBIN 11.1 g/dL (14.0-18.0); MEAN CELL VOLUME 86.1 fL (80-100); MEAN CORPUSCULAR HEMOGLOBIN 28.5 pg (25-34); MEAN CORPUSCULAR HGB CONC 33.1 g/dl (32-36); MEAN PLATELET VOLUME 9.4 fL (7.4-10.4); PLATELET COUNT 345 K/uL (130-400); RED CELL DISTRIBUTION WIDTH CV 15.3 % (11.5-14.5); RED CELL DISTRIBUTION WIDTH SD 48.5 fL (36.4-46.3); WHITE BLOOD COUNT 9.15 K/uL (4.8-10.8)
[2017-07-09] MEDS: ALBUT/IPRATROP 3MG/0.5MG NEB 3 ML VIAL INH SCH ×2 (07:06→11:12)
[2017-07-09 07:16] LABS: CREATININE 1.65 mg/dl (0.60-1.40); POTASSIUM 4.2 mmol/L (3.5-5.1)
[2017-07-09] MEDS: GUAIFENESIN 600 MG TABCR PO SCH (07:41)
[2017-07-09] MEDS: METHYLPREDNISOLONE IV 40 MG in SYRINGE 0 ML IV SCH (07:41)
[2017-07-09] MEDS: GEMFIBROZIL 600 MG TAB PO SCH (07:41)
[2017-07-09] MEDS: DOXYCYCLINE HYCLATE 100 MG CAP PO SCH (07:41)
[2017-07-09] MEDS: LOSARTAN POTASSIUM 50 MG TAB PO SCH (07:41)
[2017-07-09] MEDS: PANTOprazole SOD 40 MG TAB PO SCH (07:42)
[2017-07-09] MEDS: SERTRALINE HCL 100 MG TAB PO SCH (07:42)
[2017-07-09] MEDS: BENZONATATE 100MG CAP PO SCH ×2 (10:38→14:00)
--- NOTE | 2017-07-09 10:40 | DIAGNOSTIC IMAGING REPORT ---
CHEST 2 VIEWS ROUTINE CLINICAL HISTORY: bronchitis, congestive failure exacerbation COMPARISON STUDY: 07/07/2017 FINDINGS: The heart remains enlarged. There is no overt failure. There is no focal pulmonary consolidation. There are no pleural effusions. Degenerative changes are present within the spine. There is bridging calcification of the anterior longitudinal ligament.[ IMPRESSION: Cardiomegaly. No acute findings. Electronically signed by: Buddy Rodríguez M.D. 07/09/2017 10:38 AM Dictated Date/Time: 07/09/2017 10:38 AM
--- NOTE | 2017-07-09 12:28 | Clinical Documentation Query ---
CLINICAL DOCUMENTATION QUERY 77 yo male admitted with SOB, productive cough and wheezing. Patient has a hx of combined CHF, HTN, and 2-3# wt gain. Troponins are elevated at 0.053 and trending down to 0.047. Patient is documented as having myocardial demand ischemis in the setting of acute bronchitis and/or pneumonia. In your clinical opinion is this patient being managed for: ( ) Type 2 CO due to demand ischemia ( ) Not Agree ( ) Other explanation of clinical findings (Please Explain) ( ) Unable to determine (Please Define) ( ) Need to Discuss The medical record reflects the following clinical findings, treatment, and risk factors. Clinical Indicators: As above Treatment: O2, serial troponins, serial EKGs, echo, Cardiology consult Risk Factors: Age, HTN, CHF, pneumonia Please clarify and document your clinical opinion in the progress notes and discharge summary. Terms such as "probable", "suspected", "likely", "questionable", "possible", or "still to be ruled out" are acceptable. IF IN AGREEMENT, YOU MUST DOCUMENT ABOVE DIAGNOSTIC STATEMENT IN DAILY PROGRESS NOTES AND DISCHARGE SUMMARY. This document is not part of the patient's record. Thank You, Nadine Mensah RN [phone]
[2017-07-09] MEDS ORDERED: GFNSR600 PO (13:58)
[2017-07-09] MEDS ORDERED: PRD10 PO (13:58)
[2017-07-09] MEDS ORDERED: BENZ100C7 PO (13:58)
[2017-07-09] MEDS ORDERED: DXY100 PO (13:58)
[2017-07-09] MEDS ORDERED: IPRASOL4 INH ×2 (13:58→15:25)
[2017-07-09] MEDS ORDERED: MAGIC1 PO (13:58)
--- NOTE | 2017-07-09 14:08 | Discharge Instructions ---
Discharge Instructions Date of Service Jul 09, 2017. Admission Reason for Admission: Severe cough due to bronchitis Discharge Discharge Diagnosis / Problem: Acute Bronchitis; questionable right lower lobe pneumonia Discharge Goals Goal(s): Learn about illness, Diagnostic testing, Therapeutic intervention Activity Recommendations Activity Limitations: resume your previous activity (as tolerated ) . Instructions / Follow-Up Instructions / Follow-Up From Dr. Hand - Your cough/congestion/wheezing is due to acute bronchitis. There may be a small amount of pneumonia in the right lung lower lobe but multiple chest x-rays failed to definitively show such. You improved with use of nebulizer treatments and steroids. Your oxygen levels have been normal during your entire stay, even with walking. At this time please do the following - 1. take a prednisone course. Start this TOMORROW 07/10/17. * Know that prednisone can cause fluid retention so please continue to check your weights every day at home as previous 2. use a "duoneb" every 6 hours as needed for cough/wheeze. You may want to place yourself on an every 6 hour schedule for the next 5-7 days as you recover. I called the duonebs into [facility] for you. 3. may use byni-aoy-lifvdxf mucinex up to 1200mg twice a day as desired for cough. 4. may use "tessalon pearles" 100mg every 8 hours as needed for cough. Prescription sent to [facility] for you. 5. take doxycycline 100mg twice a day for 6 days. This is your antibiotic. Doxycycline sometimes can cause reflux/heartburn. It can also cause a rash if you go out into the sun while taking it. Be sure to cover up your skin over the next 7 days if you go outside. Start the doxycycline TONIGHT> 6. When you first arrived at the hospital there was suspicion that your symptoms were from congestive heart failure. You received several doses of IV lasix early on. This was quickly stopped as it became more clear that your symptoms were not from heart failure but from bronchitis. The IV lasix actually made you slightly dehydrated. Your weight is now 193 pounds. Please HOLD your lasix AND your losartan until you see Dr. oPtts later this week. I would like for you to have a blood draw prior to your appointment with Dr. Potts. Please take the prescription for blood work and have the blood work done on Sunday. Please avoid any motrin, ibuprofen, or naprosyn for aches/pain. Tylenol IS ok. 7. Follow-up with Dr. Potts later this week as scheduled. 8. Return to [facility] if - * you have any fever over 100.4 degrees * you have worsening shortness of breath, wheezing, coughing, etc * you have chest pain * any other concerns Current Hospital Diet Patient's current hospital diet: AHA Diet (Heart Healthy), Low Sodium Diet (2gm Na) Discharge Diet Recommended Diet: AHA Diet (Heart Healthy) Procedures Procedures Performed: multiple chest x-rays - all within normal limits. Pending Studies Studies pending at discharge: no Medical Emergencies . Who to Call and When: Medical Emergencies: If at any time you feel your situation is an emergency, please call 911 immediately. . Non-Emergent Contact Non-Emergency issues call your: Primary Care Provider Call Non-Emergent contact if: temperature is above 100.5, you have any medication questions . . "Provider Documentation" section prepared by Gerardo Hand. .
[2017-07-10] MEDS ORDERED: ALBINS INH (11:06)
[2017-07-10] MEDS ORDERED: ATRINS NEB (11:06)
== END 2017-07-09 14:47 | disposition home or self-care (01) | DRG 193 ==
LOC: EDBD 12:02 → C.EDB 12:03 → C.2E 14:24 → ENRESERV 15:02 → C.MS4W 07-08 12:38
PROVIDERS: ADMIT Family Medicine; ATTEND Internal Medicine
DX: J18.9 Pneumonia, unspecified organism (principal); I21.A1 Myocardial infarction type 2; I50.43 Acute on chronic combined systolic (congestive) and diastolic (congestive) heart failure; N17.9 Acute kidney failure, unspecified; J40 Bronchitis, not specified as acute or chronic; I11.0 Hypertensive heart disease with heart failure; E03.9 Hypothyroidism, unspecified; G30.9 Alzheimer's disease, unspecified; F02.80 Dementia in other diseases classified elsewhere, unspecified severity, without behavioral disturbance, psychotic disturbance, mood disturbance, and anxiety; K21.9 Gastro-esophageal reflux disease without esophagitis